=== PATIENT | female | born 1955 | race Caucasian/White ===

== ENCOUNTER 2016-12-07 12:34 | Emergency (ER) | payer OTHER ==
[2016-12-07] MEDS ORDERED: SODIUM CHLORIDE 0.9% 1,000 ML IV STA (12:51)
--- NOTE | 2016-12-07 13:25 | ED ---
Syncope HPI - General Chief Complaint: Syncope Stated Complaint: near syncope Time Seen by Provider: 12/07/16 12:34 Source: patient, RN notes reviewed Mode of arrival: EMS Limitations: no limitations - History of Present Illness Initial Comments: This is a 61-year-old female who is brought in for evaluation for what appear to be a near syncopal episode. Patient had walked 5 miles this morning he did not drink much fluid she just got part way through a [place] meal she started feeling somewhat lightheaded dizzy changes that she was given pass out. She is pale and diaphoretic per paramedics. Her blood pressure was 93 systolic currently is about 150 systolic. In route she was given IV fluids and did feel much improved after this. She denies any chest pain headache or vision or other symptoms at this time. No focal weakness. She normally does walk long distances but normally drinks more fluids. MD Complaint: felt faint, almost passed out - Related Data Home Medications Medication Instructions Recorded Confirmed Atorvastatin [Lipitor] 20 mg PO HS 01/27/16 12/07/16 Aspirin EC [Ecotrin Low Dose] 81 mg PO DAILY 12/07/16 12/07/16 Levothyroxine Sodium [Synthroid] 137 mcg PO DAILY 12/07/16 12/07/16 Losartan/Hydrochlorothiazide 1 tab PO DAILY 12/07/16 12/07/16 [Losartan-Hctz 100-12.5 mg Tab] Previous Rx's Medication Instructions Recorded Potassium Chloride ER [K-Dur 20] 20 meq PO DAILY #14 tab 12/07/16 Allergies Allergy/AdvReac Type Severity Reaction Status Date / Time codeine Allergy Rash/Hives Verified 12/07/16 13:49 Penicillins Allergy Rash/Hives Verified 12/07/16 13:49 Review of Systems ROS Statement: Those systems with pertinent positive or pertinent negative responses have been documented in the HPI. ROS Other: All systems not noted in ROS Statement are negative. Past Medical History Past Medical History: GERD/Reflux, Hyperlipidemia, Hypertension, Thyroid Disorder History of Any Multi-Drug Resistant Organisms: None Reported Past Surgical History: Cholecystectomy, Hysterectomy, Joint Replacement, Orthopedic Surgery Additional Past Surgical History / Comment(s): right hand Past Psychological History: No Psychological Hx Reported Smoking Status: Former smoker Past Alcohol Use History: None Reported Past Drug Use History: None Reported General Exam - General Exam Comments Initial Comments: This is a well-developed well-nourished awake alert oriented 3 female Limitations: no limitations General appearance: alert, in no apparent distress Head exam: Present: atraumatic, normocephalic, normal inspection Eye exam: Present: normal appearance, PERRL, EOMI. Absent: scleral icterus, conjunctival injection, periorbital swelling ENT exam: Present: mucous membranes dry Neck exam: Present: normal inspection. Absent: tenderness, meningismus, lymphadenopathy Respiratory exam: Present: normal lung sounds bilaterally. Absent: respiratory distress, wheezes, rales, rhonchi, stridor Cardiovascular Exam: Present: regular rate, normal rhythm, normal heart sounds. Absent: systolic murmur, diastolic murmur, rubs, gallop, clicks GI/Abdominal exam: Present: soft, normal bowel sounds. Absent: distended, tenderness, guarding, rebound, rigid Extremities exam: Present: normal inspection, full ROM, normal capillary refill. Absent: tenderness, pedal edema, joint swelling, calf tenderness Back exam: Present: normal inspection Neurological exam: Present: alert, oriented X3, CN II-XII intact Psychiatric exam: Present: normal affect, normal mood Skin exam: Present: warm, dry, intact, normal color. Absent: rash Course Vital Signs 12/07/16 12/07/16 13:00 14:10 Temperature 97.6 F Pulse Rate 60 67 Respiratory 16 18 Rate Blood Pressure 119/61 128/59 O2 Sat by Pulse 96 98 Oximetry EKG Findings - EKG Results: EKG: interpreted by ERMD, sinus rhythm (Sinus bradycardia with a rate of 58 ME interval 170 QRS duration 80 daily since QTC of 460/451. ST-T wave changes) Medical Decision Making - Medical Decision Making Patient initially much improved she will be discharged the presentation is consistent with an orthostatic episode she'll be placed on potassium supplementation she is encouraged to increase her oral fluid consumption. - Lab Data Result diagrams: 12/07/16 14:00 12/07/16 13:36 Lab Results 12/07/16 12/07/16 12/07/16 Range/Units 13:36 13:36 14:00 WBC 9.3 (3.8-10.6) k/uL RBC 4.28 (3.80-5.40) m/uL Hgb 12.6 (11.4-16.0) gm/dL Hct 38.5 (34.0-46.0) % MCV 90.0 (80.0-100.0) fL MCH 29.5 (25.0-35.0) pg MCHC 32.8 (31.0-37.0) g/dL RDW 13.8 (11.5-15.5) % Plt Count 187 (150-450) k/uL Neutrophils % 72 % Lymphocytes % 17 % Monocytes % 7 % Eosinophils % 1 % Basophils % 0 % Neutrophils # 6.7 (1.3-7.7) k/uL Lymphocytes # 1.6 (1.0-4.8) k/uL Monocytes # 0.7 (0-1.0) k/uL Eosinophils # 0.1 (0-0.7) k/uL Basophils # 0.0 (0-0.2) k/uL PT 10.4 (9.0-12.0) sec INR 1.0 (<1.1) APTT 22.1 (22.0-30.0) sec Sodium 142 (137-145) mmol/L Potassium 3.2 L (3.5-5.1) mmol/L Chloride 107 (98-107) mmol/L Carbon Dioxide 24 (22-30) mmol/L Anion Gap 11 mmol/L BUN 18 H (7-17) mg/dL Creatinine 0.90 (0.52-1.04) mg/dL Est GFR (MDRD) Af Amer >60 (>60 ml/min/1.73 sqM) Est GFR (MDRD) Non-Af >60 (>60 ml/min/1.73 sqM) Glucose 110 H (74-99) mg/dL Calcium 9.1 (8.4-10.2) mg/dL Magnesium 1.9 (1.6-2.3) mg/dL Total Bilirubin 0.6 (0.2-1.3) mg/dL AST 20 (14-36) U/L ALT 21 (9-52) U/L Alkaline Phosphatase 122 (38-126) U/L Total Creatine Kinase (30-135) U/L CK-MB (CK-2) (0.0-2.4) ng/mL CK-MB (CK-2) Rel Index Troponin I (0.000-0.034) ng/mL Total Protein 7.0 (6.3-8.2) g/dL Albumin 4.1 (3.5-5.0) g/dL 12/07/16 Range/Units 14:00 WBC (3.8-10.6) k/uL RBC (3.80-5.40) m/uL Hgb (11.4-16.0) gm/dL Hct (34.0-46.0) % MCV (80.0-100.0) fL MCH (25.0-35.0) pg MCHC (31.0-37.0) g/dL RDW (11.5-15.5) % Plt Count (150-450) k/uL Neutrophils % % Lymphocytes % % Monocytes % % Eosinophils % % Basophils % % Neutrophils # (1.3-7.7) k/uL Lymphocytes # (1.0-4.8) k/uL Monocytes # (0-1.0) k/uL Eosinophils # (0-0.7) k/uL Basophils # (0-0.2) k/uL PT (9.0-12.0) sec INR (<1.1) APTT (22.0-30.0) sec Sodium (137-145) mmol/L Potassium (3.5-5.1) mmol/L Chloride (98-107) mmol/L Carbon Dioxide (22-30) mmol/L Anion Gap mmol/L BUN (7-17) mg/dL Creatinine (0.52-1.04) mg/dL Est GFR (MDRD) Af Amer (>60 ml/min/1.73 sqM) Est GFR (MDRD) Non-Af (>60 ml/min/1.73 sqM) Glucose (74-99) mg/dL Calcium (8.4-10.2) mg/dL Magnesium (1.6-2.3) mg/dL Total Bilirubin (0.2-1.3) mg/dL AST (14-36) U/L ALT (9-52) U/L Alkaline Phosphatase (38-126) U/L Total Creatine Kinase 67 (30-135) U/L CK-MB (CK-2) 0.7 (0.0-2.4) ng/mL CK-MB (CK-2) Rel Index 1.0 Troponin I <0.012 (0.000-0.034) ng/mL Total Protein (6.3-8.2) g/dL Albumin (3.5-5.0) g/dL - Radiology Data Radiology results: report reviewed (I did review the imaging and reports no acute findings.), image reviewed Disposition Clinical Impression: Near syncope, Dehydration, Hypokalemia Disposition: HOME SELF-CARE Condition: Good Instructions: Hypokalemia (ED), Dehydration (ED), Near Syncope (ED) Prescriptions: Potassium Chloride ER [K-Dur 20] 20 meq PO DAILY #14 tab Referrals: Braden Gandhi DO [Primary Care Provider] - 1-2 days
--- NOTE | 2016-12-07 13:51 | XR ---
EXAMINATION TYPE: XR chest 2V DATE OF EXAM: 12/07/2016 1:46 PM HISTORY: syncope. REFERENCE: Previous study dated 01/27/2016. FINDINGS: Lung volumes are prominent. Heart size upper limits of normal. The lungs are clear. IMPRESSION: 1. COPD. 2. BORDERLINE CARDIOMEGALY.
[2016-12-07 13:57] LABS: Partial Thromboplastin Time 22.1 sec (22.0-30.0); Prothrombin Time 10.4 sec (9.0-12.0)
[2016-12-07 14:14] VITALS: BP 128/59; RESP 18
[2016-12-07 14:17] LABS: ALT 21 U/L (9-52); AST 20 U/L (14-36); Alkaline Phosphatase 122 U/L (38-126); Anion Gap 11 mmol/L; Blood Urea Nitrogen 18 mg/dL (7-17); Calcium 9.1 mg/dL (8.4-10.2); Carbon Dioxide 24 mmol/L (22-30); Chloride 107 mmol/L (98-107); Glucose 110 mg/dL (74-99); Magnesium 1.9 mg/dL (1.6-2.3); Non-African American GFR(MDRD) >60 (>60 ml/min/1.73 sqM); Potassium 3.2 mmol/L (3.5-5.1); Sodium 142 mmol/L (137-145); Total Bilirubin 0.6 mg/dL (0.2-1.3)
[2016-12-07 14:20] LABS: Basophils % (A) 0 %; CH 28.7; Eosinophils # (A) 0.1 k/uL (0-0.7); Eosinophils % (A) 1 %; HCT 38.5 % (34.0-46.0); HDW 2.59; HGB 12.6 gm/dL (11.4-16.0); Luc # (Auto) 0.21; Luc % (Auto) 2; Lymphocytes # (A) 1.6 k/uL (1.0-4.8); Lymphocytes % (A) 17 %; MCH 29.5 pg (25.0-35.0); MCHC 32.8 g/dL (31.0-37.0); Mean Platelet Volume 7.2; Monocytes # (A) 0.7 k/uL (0-1.0); Monocytes % (A) 7 %; Neutrophils # (A) 6.7 k/uL (1.3-7.7); Neutrophils % (A) 72 %; RBC 4.28 m/uL (3.80-5.40); RDW 13.8 % (11.5-15.5); WBC 9.3 k/uL (3.8-10.6); WBC (Perox) 9.82
[2016-12-07] MEDS ORDERED: POTASSIUM CHLORIDE ER 20 MEQ TAB.ER PO STA (14:35)
[2016-12-07 14:41] LABS: Creatine Kinase 67 U/L (30-135)
[2016-12-07 14:54] LABS: Creatine Kinase MB 0.7 ng/mL (0.0-2.4); Troponin I <0.012 ng/mL (0.000-0.034)
[2016-12-07 15:29] VITALS: PULSE 70; TEMP 97.5
== END 2016-12-07 15:30 | disposition home or self-care (01) ==
LOC: EC 12:34
DX: E87.6 Hypokalemia (principal); E86.0 Dehydration; I10 Essential (primary) hypertension; E78.5 Hyperlipidemia, unspecified; E07.9 Disorder of thyroid, unspecified; Z87.891 Personal history of nicotine dependence; Z79.82 Long term (current) use of aspirin; Z79.899 Other long term (current) drug therapy; Z88.0 Allergy status to penicillin; Z88.5 Allergy status to narcotic agent
CPT/HCPCS: 36415; 71020; 80053; 82550; 82553; 83735; 84484; 85025; 85610; 85730; 93005; 96360; 99285

== ENCOUNTER → 2017-02-06 | Outpatient (CLI) | payer OTHER ==
--- NOTE | 2017-02-06 18:01 | US ---
EXAMINATION TYPE: US venous doppler duplex LE DATE OF EXAM: 02/06/2017 5:46 PM COMPARISON: NONE CLINICAL HISTORY: R79.9 Abnormal finding of blood chemistry, unspecified. Bilateral edema SIDE PERFORMED: Bilateral TECHNIQUE: The lower extremity deep venous system is examined utilizing real time linear array sonog cheryl with graded compression, doppler sonography and color-flow sonography. VESSELS IMAGED: External Iliac Vein (EIV) Common Femoral Vein Deep Femoral Vein Greater Saphenous Vein * Femoral Vein Popliteal Vein Small Saphenous Vein * Proximal Calf Veins (* superficial vessels) Right Leg: Negative for DVT Left Leg: Negative for DVT Grayscale, color doppler, spectral doppler imaging performed of the deep veins of the lower extremiti es. There is normal flow, compressibility, vascular waveforms bilaterally. IMPRESSION: No ultrasound evidence for acute DVT in either lower extremity.
== END | disposition home or self-care (01) ==
LOC: RADUSMAIN 16:51
PROVIDERS: ATTEND Family Medicine
DX: R79.9 Abnormal finding of blood chemistry, unspecified (principal)
CPT/HCPCS: 93970

== ENCOUNTER 2017-11-01 13:22 | Inpatient (IN) | payer OTHER ==
[2017-11-01 14:07] LABS: Basophils % (A) 0 %; Eosinophils # (A) 0.1 k/uL (0-0.7); Eosinophils % (A) 1 %; HCT 40.2 % (34.0-46.0); HGB 13.5 gm/dL (11.4-16.0); Lymphocytes % (A) 26 %; MCH 27.8 pg (25.0-35.0); MCHC 33.6 g/dL (31.0-37.0); MCV 82.6 fL (80.0-100.0); Mean Platelet Volume 7.2; Monocytes # (A) 0.5 k/uL (0-1.0); Monocytes % (A) 7 %; Neutrophils # (A) 4.9 k/uL (1.3-7.7); Neutrophils % (A) 64 %; Platelet Count 256 k/uL (150-450); RBC 4.87 m/uL (3.80-5.40); RDW 13.2 % (11.5-15.5); WBC 7.6 k/uL (3.8-10.6)
[2017-11-01 14:14] LABS: Albumin 3.9 g/dL (3.5-5.0); Calcium 9.3 mg/dL (8.4-10.2); Magnesium 1.9 mg/dL (1.6-2.3); Potassium 3.5 mmol/L (3.5-5.1); Total Bilirubin 0.3 mg/dL (0.2-1.3); Total Protein 6.9 g/dL (6.3-8.2)
[2017-11-01 14:16] LABS: Partial Thromboplastin Time 25.1 sec (22.0-30.0); Prothrombin Time 9.9 sec (9.0-12.0)
[2017-11-01] MEDS ORDERED: ONDANSETRON 4 MG/2 ML VIAL IVP PRN (14:47)
[2017-11-01] MEDS ORDERED: NALOXONE 0.4 MG/ML 1 ML VIAL IV PRN (14:47)
--- NOTE | 2017-11-01 14:47 | ED ---
SOB HPI - General Chief Complaint: Shortness of Breath Stated Complaint: Diff Breathing Time Seen by Provider: 11/01/17 13:33 Source: patient Mode of arrival: ambulatory Limitations: no limitations - History of Present Illness Initial Comments: Patient complains of shortness of breath and left-sided chest pain. Apparently she has been treated a couple times for upper respiratory infections over the last few months. Recently developed sharp left-sided chest pain. Hurts when she takes a deep breath. Nothing else makes it better. She has taken no medications. She has no productivity to her cough. She has no nausea or vomiting. She has no diaphoresis. She denies any weakness or trouble walking. She is tolerating orotate. She has no belly pain. - Related Data Home Medications Medication Instructions Recorded Confirmed Atorvastatin [Lipitor] 20 mg PO HS 01/27/16 12/07/16 Aspirin EC [Ecotrin Low Dose] 81 mg PO DAILY 12/07/16 12/07/16 Levothyroxine Sodium [Synthroid] 137 mcg PO DAILY 12/07/16 12/07/16 Losartan/Hydrochlorothiazide 1 tab PO DAILY 12/07/16 12/07/16 [Losartan-Hctz 100-12.5 mg Tab] Previous Rx's Medication Instructions Recorded Potassium Chloride ER [K-Dur 20] 20 meq PO DAILY #14 tab 12/07/16 Allergies Allergy/AdvReac Type Severity Reaction Status Date / Time codeine Allergy Rash/Hives Verified 11/01/17 13:31 Penicillins Allergy Rash/Hives Verified 11/01/17 13:31 Review of Systems ROS Statement: Those systems with pertinent positive or pertinent negative responses have been documented in the HPI. ROS Other: All systems not noted in ROS Statement are negative. Past Medical History Past Medical History: GERD/Reflux, Hyperlipidemia, Hypertension, Thyroid Disorder History of Any Multi-Drug Resistant Organisms: None Reported Past Surgical History: Cholecystectomy, Hysterectomy, Joint Replacement, Orthopedic Surgery Additional Past Surgical History / Comment(s): right hand Past Psychological History: No Psychological Hx Reported Smoking Status: Former smoker Past Alcohol Use History: None Reported Past Drug Use History: None Reported General Exam Limitations: no limitations General appearance: alert, in no apparent distress Head exam: Present: atraumatic, normocephalic, normal inspection Eye exam: Present: normal appearance, PERRL, EOMI. Absent: scleral icterus, conjunctival injection, periorbital swelling ENT exam: Present: normal exam, mucous membranes moist Neck exam: Present: normal inspection. Absent: tenderness, meningismus, lymphadenopathy Respiratory exam: Present: normal lung sounds bilaterally. Absent: respiratory distress, wheezes, rales, rhonchi, stridor Cardiovascular Exam: Present: regular rate, normal rhythm, normal heart sounds. Absent: systolic murmur, diastolic murmur, rubs, gallop, clicks GI/Abdominal exam: Present: soft, normal bowel sounds. Absent: distended, tenderness, guarding, rebound, rigid Extremities exam: Present: normal inspection, full ROM, normal capillary refill. Absent: tenderness, pedal edema, joint swelling, calf tenderness Back exam: Present: normal inspection Neurological exam: Present: alert, oriented X3, CN II-XII intact Psychiatric exam: Present: normal affect, normal mood Skin exam: Present: warm, dry, intact, normal color. Absent: rash Course Vital Signs 11/01/17 11/01/17 11/01/17 13:28 13:57 14:06 Temperature 98.3 F Pulse Rate 81 Respiratory 22 20 Rate Blood Pressure 199/83 O2 Sat by Pulse 94 L 97 Oximetry Medical Decision Making - Medical Decision Making Patient presents with sharp left-sided chest pain. She has a tiny pneumothorax. She is placed on 100% oxygen. I consult the pulmonology. She will be admitted to the hospital. - Lab Data Result diagrams: 11/01/17 13:52 11/01/17 13:52 Lab Results 11/01/17 11/01/17 11/01/17 Range/Units 13:52 13:52 13:52 WBC 7.6 (3.8-10.6) k/uL RBC 4.87 (3.80-5.40) m/uL Hgb 13.5 (11.4-16.0) gm/dL Hct 40.2 (34.0-46.0) % MCV 82.6 (80.0-100.0) fL MCH 27.8 (25.0-35.0) pg MCHC 33.6 (31.0-37.0) g/dL RDW 13.2 (11.5-15.5) % Plt Count 256 (150-450) k/uL Neutrophils % 64 % Lymphocytes % 26 % Monocytes % 7 % Eosinophils % 1 % Basophils % 0 % Neutrophils # 4.9 (1.3-7.7) k/uL Lymphocytes # 2.0 (1.0-4.8) k/uL Monocytes # 0.5 (0-1.0) k/uL Eosinophils # 0.1 (0-0.7) k/uL Basophils # 0.0 (0-0.2) k/uL PT (9.0-12.0) sec INR (<1.2) APTT (22.0-30.0) sec Sodium 147 H (137-145) mmol/L Potassium 3.5 (3.5-5.1) mmol/L Chloride 106 (98-107) mmol/L Carbon Dioxide 29 (22-30) mmol/L Anion Gap 12 mmol/L BUN 14 (7-17) mg/dL Creatinine 0.85 (0.52-1.04) mg/dL Est GFR (CKD-EPI)AfAm 85 (>60 ml/min/1.73 sqM) Est GFR (CKD-EPI)NonAf 73 (>60 ml/min/1.73 sqM) Glucose 106 H (74-99) mg/dL Calcium 9.3 (8.4-10.2) mg/dL Magnesium 1.9 (1.6-2.3) mg/dL Total Bilirubin 0.3 (0.2-1.3) mg/dL AST 19 (14-36) U/L ALT 22 (9-52) U/L Alkaline Phosphatase 155 H (38-126) U/L Troponin I (0.000-0.034) ng/mL NT-Pro-B Natriuret Pep 550 pg/mL Total Protein 6.9 (6.3-8.2) g/dL Albumin 3.9 (3.5-5.0) g/dL 11/01/17 11/01/17 Range/Units 13:52 13:52 WBC (3.8-10.6) k/uL RBC (3.80-5.40) m/uL Hgb (11.4-16.0) gm/dL Hct (34.0-46.0) % MCV (80.0-100.0) fL MCH (25.0-35.0) pg MCHC (31.0-37.0) g/dL RDW (11.5-15.5) % Plt Count (150-450) k/uL Neutrophils % % Lymphocytes % % Monocytes % % Eosinophils % % Basophils % % Neutrophils # (1.3-7.7) k/uL Lymphocytes # (1.0-4.8) k/uL Monocytes # (0-1.0) k/uL Eosinophils # (0-0.7) k/uL Basophils # (0-0.2) k/uL PT 9.9 (9.0-12.0) sec INR 1.0 (<1.2) APTT 25.1 (22.0-30.0) sec Sodium (137-145) mmol/L Potassium (3.5-5.1) mmol/L Chloride (98-107) mmol/L Carbon Dioxide (22-30) mmol/L Anion Gap mmol/L BUN (7-17) mg/dL Creatinine (0.52-1.04) mg/dL Est GFR (CKD-EPI)AfAm (>60 ml/min/1.73 sqM) Est GFR (CKD-EPI)NonAf (>60 ml/min/1.73 sqM) Glucose (74-99) mg/dL Calcium (8.4-10.2) mg/dL Magnesium (1.6-2.3) mg/dL Total Bilirubin (0.2-1.3) mg/dL AST (14-36) U/L ALT (9-52) U/L Alkaline Phosphatase (38-126) U/L Troponin I <0.012 (0.000-0.034) ng/mL NT-Pro-B Natriuret Pep pg/mL Total Protein (6.3-8.2) g/dL Albumin (3.5-5.0) g/dL 11/01/17 14:46 Twelve-lead EKG shows ventricular rate 73 bpm, normal ID interval and QRS complexes, no ST elevation or depression, interpreted by me as normal sinus rhythm. Disposition Clinical Impression: Pneumothorax Disposition: ADMITTED IP TO THIS HOSP Condition: Fair Is patient prescribed a controlled substance at discharge?: No Referrals: Braden Gandhi DO [Primary Care Provider] - 1-2 days Time of Disposition: 14:47
[2017-11-01] MEDS ORDERED: cloNIDine HCL 0.2 MG TAB PO STA (15:35)
[2017-11-01] MEDS ORDERED: RX INFO: IV CONTRAST WAS GIVEN 1 EACH MISC MISCELLANE PRN (17:51)
--- NOTE | 2017-11-01 19:21 | P.CNPUL ---
History of Present Illness Consult date: 11/01/17 Reason for consult: dyspnea, pneumothorax History of present illness: A 62-year-old female patient, obese with a BMI of 40.2, well-developed an upper respiratory checked infection approximately 2 weeks ago and the patient has been seen in urgent care for antibiotics. She continued to have vigorous cough and she progressively became more short of breath and the patient presented to her primary care physician Dr. Gandhi ordered an outpatient chest x-ray. The chest x-ray was done and the patient was found to have a pneumothorax. The patient got called back from the hospital to come in to the emergency department and based on the findings the patient was admitted to the observation unit. Currently the patient is on 100% nonrebreather facemask and hemodynamically stable. She is short of breath with minimal amount of activity. She is quite comfortable at rest. No signs of tension. No pleurisy. No chest pain. No hypotension. No rib fracture. No falls. No previous history of pneumothoraces in the past. Based on the radiology description the patient is a 20% pneumothorax on the left yet on examination she has significantly diminished breath sounds on the left compared to the right. A stat CAT scan of the chest was ordered. Review of Systems 12 point review of system was done and the positive findings are almost above in history of present illness All systems: negative Eyes: denies blurred vision, denies bulging eye, denies decreased vision Ears: deny: ear discharge, earache, tinnitus Ears, nose, mouth and throat: Denies headache, Denies sore throat Cardiovascular: Reports dyspnea on exertion Respiratory: Reports cough, Reports dyspnea Gastrointestinal: Denies abdominal pain, Denies diarrhea, Denies nausea, Denies vomiting Genitourinary: Denies dysuria, Denies hematuria Musculoskeletal: Denies myalgias Musculoskeletal: absent: ankle pain, ankle stiffness, ankle swelling Integumentary: Denies pruritus, Denies rash Neurological: Denies numbness, Denies weakness Psychiatric: Denies anxiety, Denies depression Endocrine: Denies fatigue, Denies weight change Past Medical History Past Medical History: Cancer, GERD/Reflux, Hyperlipidemia, Hypertension, Pneumonia, Thyroid Disorder Additional Past Medical History / Comment(s): Obesity, hypertension, hyperlipidemia, shingles approximately 9 years ago, acid reflux, cervical cancer History of Any Multi-Drug Resistant Organisms: None Reported Past Surgical History: Appendectomy, Cholecystectomy, Hysterectomy, Joint Replacement, Orthopedic Surgery, Tonsillectomy, Tubal Ligation Additional Past Surgical History / Comment(s): vicenta carpal tunnel , rt breast bx- neg, lt rotaotr cuff Past Anesthesia/Blood Transfusion Reactions: No Reported Reaction Additional Past Anesthesia/Blood Transfusion Reaction / Comment(s): never recieved blood Smoking Status: Former smoker - Past Family History Mother Family Medical History: AFIB, COPD, Hyperlipidemia, Hypertension, Osteoarthritis (OA), Thyroid Disorder Additional Family Medical History / Comment(s): pacemaker Father Family Medical History: Cancer, Hypertension, Rheumatoid Arthritis (RA) Medications and Allergies Home Medications Medication Instructions Recorded Confirmed Type Atorvastatin [Lipitor] 20 mg PO HS 01/27/16 11/01/17 History Aspirin EC [Ecotrin Low Dose] 81 mg PO DAILY 12/07/16 11/01/17 History Levothyroxine Sodium [Synthroid] 137 mcg PO DAILY 12/07/16 11/01/17 History Calcium Polycarbophil [Fibercon] 625 mg PO DAILY 11/01/17 11/01/17 History Losartan Potassium 100 mg PO QAM 11/01/17 11/01/17 History Allergies Allergy/AdvReac Type Severity Reaction Status Date / Time codeine Allergy Rash/Hives Verified 11/01/17 15:09 Penicillins Allergy Rash/Hives Verified 11/01/17 15:09 tomato Allergy Dyspnea Verified 11/01/17 17:30 chocolate flavor AdvReac Unknown Verified 11/01/17 17:30 Physical Exam Vitals: Vital Signs Temp Pulse Pulse Resp BP BP Pulse Ox 11/01/17 16:40 97.7 F 78 18 190/89 97 11/01/17 16:23 97.0 F L 81 20 192/95 97 11/01/17 15:30 85 18 189/89 98 11/01/17 15:19 69 20 195/93 100 11/01/17 14:06 97 11/01/17 13:57 20 11/01/17 13:28 98.3 F 81 22 199/83 94 L Intake and Output 11/01/17 11/01/17 11/01/17 06:59 14:59 22:59 Other: Voiding Method Toilet Weight 113.398 kg 113.1 kg Morbidly obese, comfortable a mild degree of respiratory distress. Head exam was generally normal. There was no scleral icterus or corneal arcus. Mucous membranes were moist.Neck was supple and without jugular venous distension, thyromegaly, or carotid bruits. Carotids were easily palpable bilaterally. There was no adenopathy. Lung sounds are markedly diminished on the left compared to right. Right lung are clear.Cardiac exam revealed the PMI to be normally situated and sized. The rhythm was regular and no extrasystoles were noted during several minutes of auscultation. The first and second heart sounds were normal and physiologic splitting of the second heart sound was noted. There were no murmurs, rubs, clicks, or gallops.Abdominal exam revealed normal bowel sounds. The abdomen was soft, non-tender, and without masses, organomegaly , or appreciable enlargement of the abdominal aorta.Examination of the extremities revealed easily palpable radial, femoral and pedal pulses. There was no cyanosis, clubbing or edema. Examination of the skin revealed no evidence of significant rashes, suspicious appearing nevi or other concerning lesions. neurologically the patient is awake and alert and there is no focal neurological deficits. Results - Laboratory Findings CBC and BMP: 11/01/17 13:52 11/01/17 13:52 PT/INR, D-dimer PT 9.9 sec (9.0-12.0) 11/01/17 13:52 INR 1.0 (<1.2) 11/01/17 13:52 Abnormal lab findings: Abnormal Labs 11/01/17 13:52 Sodium 147 H Glucose 106 H Alkaline Phosphatase 155 H - Diagnostic Findings Chest x-ray: image reviewed Assessment and Plan Plan: Assessment 1 acute left-sided pneumothorax, probably loculated involving the left lower lobe 2 acute hypoxic respiratory failure secondary to above 3 acute shortness of breath secondary to above 4 recent symptoms of bronchitis with vigorous cough underlying this patient's pneumothorax 5 obesity with a BMI of 40.2 6 remote history of cervical cancer 7 hyperlipidemia 8 hypertension 9 hypothyroidism Plan Stat CAT scan of the chest. We'll decide on chest tube versus Thoravent based on the CAT scan findings. Keep the patient on 100 percent facemasks. Moreover the patient to a monitored bed on the medical surgical floor or selective. Provide the patient incentive spirometer. We'll continue to follow. Further recommended is set to follow based on the CAT scan findings.
--- NOTE | 2017-11-01 19:53 | CT ---
EXAMINATION TYPE: CT chest w con DATE OF EXAM: 11/01/2017 COMPARISON: Chest x-ray earlier today and older x-rays. HISTORY: Difficulty breathing. Left-sided pneumothorax. CT DLP: 522.4 mGycm. Automated Exposure Control for Dose Reduction was Utilized. TECHNIQUE: CT scan of the thorax is performed following with IV Contrast, patient injected with 100 mL of Isovue 300. FINDINGS: LUNGS: There is left-sided pneumothorax confirmed as suspected on recent x-ray. Degree of pneumothora x is larger than suspected on x-ray estimated 50-60%. There is some subtle mediastinal shift to the right felt present. There is curvilinear density centrally and inferiorly felt to reflect compressive atelectasis. Right lung is clear. Mild underlying emphysematous changes in present most prominent in the lung apices. MEDIASTINUM: There are no greater than 1 cm hilar or mediastinal lymph nodes. No cardiomegaly or pe ricardial effusion is seen. OTHER: There is moderate multilevel spurring in the thoracic spine. IMPRESSION: 1. There is moderate to large size left pneumothorax estimated 50-60% with some mediastinal shift. Critical results were communicated to ICU nurse via telephone at time of dictation.
[2017-11-01] MEDS ORDERED: HYDROcodone/APAP 5-325MG 1 EACH TAB PO PRN (20:19)
--- NOTE | 2017-11-01 20:19 | P.PCN ---
Date of Procedure: 11/01/17 Preoperative Diagnosis: Left-sided pneumothorax Postoperative Diagnosis: Left-sided pneumothorax Procedure(s) Performed: THORAVENT INSERTION Anesthesia: local Surgeon: Adalid Mcnulty Sourcing Intern #1: Nirali Her Estimated Blood Loss (ml): 0 Pathology: other Condition: stable Disposition: ICU Indications for Procedure: Acute hypoxemic respiratory failure, 100% oxygen nonrebreather facemask Operative Findings: The patient was placed in a supine body position with the head of the bed elevated at 20. The left anterior chest area was cleaned using chlorhexidine. The skin at the level of the second intercostal space anteriorly was infiltrated with 1% lidocaine. Following that, a Thoravent cath was successfully inserted into the left hemithorax and the catheter was secured in place. The catheter was also attached to a Pneumovax. No bedside complications or bleeding. Postoperative chest x-ray shows adequate positioning of the tube with complete expansion of the left lung and the patient 's oxidation improved considerably and the patient is currently being weaned down to a nasal cannula. No bedside complications. No bleeding.
[2017-11-01] MEDS ORDERED: cloNIDine HCL 0.1 MG TAB PO STA (20:21)
--- NOTE | 2017-11-01 20:34 | XR ---
EXAMINATION TYPE: XR chest 1V portable DATE OF EXAM: 11/01/2017 CLINICAL HISTORY: Left-sided chest tube placement progress study TECHNIQUE: Single AP portable upright view of the chest is obtained. COMPARISON: Chest x-ray and CT chest from earlier today FINDINGS: There is interval placement of left-sided chest tube with reexpansion of left lung, no siz able pneumothorax is present. There is persistent left hilar rectangular consolidation noted. Right l niles remains clear. Cardiac silhouette size is upper limits of normal. Osseous structures are intact. IMPRESSION: New left-sided anterior chest tube with reexpansion of left lung. Persistent left midlung rectangular shaped consolidation. Progress study advised.
[2017-11-01] MEDS: HYDROcodone/APAP 5-325MG 1 EACH TAB PO PRN (21:16)
[2017-11-01] MEDS: FAMOTIDINE 20 MG TAB PO SCH (23:04)
[2017-11-01] MEDS: ATORVASTATIN 20 MG TAB PO SCH (23:04)
[2017-11-02 05:19] LABS: Basophils % (A) 0 %; Eosinophils # (A) 0.1 k/uL (0-0.7); Eosinophils % (A) 1 %; HCT 37.3 % (34.0-46.0); HGB 12.4 gm/dL (11.4-16.0); Lymphocytes % (A) 29 %; MCH 27.8 pg (25.0-35.0); MCHC 33.1 g/dL (31.0-37.0); Mean Platelet Volume 7.2; Monocytes # (A) 0.4 k/uL (0-1.0); Monocytes % (A) 6 %; Neutrophils # (A) 4.1 k/uL (1.3-7.7); Neutrophils % (A) 61 %; Platelet Count 219 k/uL (150-450); RBC 4.45 m/uL (3.80-5.40); RDW 13.4 % (11.5-15.5); WBC 6.7 k/uL (3.8-10.6)
[2017-11-02 05:37] LABS: Anion Gap 11 mmol/L; Blood Urea Nitrogen 19 mg/dL (7-17); Calcium 9.2 mg/dL (8.4-10.2); Carbon Dioxide 28 mmol/L (22-30); Chloride 104 mmol/L (98-107); Glucose 93 mg/dL (74-99); Phosphorus 4.3 mg/dL (2.5-4.5); Potassium 4.2 mmol/L (3.5-5.1); Sodium 143 mmol/L (137-145)
[2017-11-02] MEDS: LEVOTHYROXINE 137 MCG TAB PO SCH (07:03)
--- NOTE | 2017-11-02 08:38 | XR ---
EXAMINATION TYPE: XR chest 1V portable DATE OF EXAM: 11/02/2017 COMPARISON: 11/01/2017 INDICATION: Left-sided pneumothorax, status post thoracentesis and TECHNIQUE: Single frontal view of the chest is obtained. FINDINGS: The heart size is normal. The pulmonary vasculature is normal. There is an infiltrate within the lingula. On this upright view no suspicious pneumothorax is evident. Catheter is present on the left. There is increased density overlying the insertion site. Catheter is been adjusted in position from prior dora dy. IMPRESSION: 1. Pneumothorax is not evident on the current examination. Close monitoring is recommended. 2. Infiltrate at the left base lingula appears improved. 3. Density over the insertion site of the catheter can be related to bandaging. Catheter appears to b e along the left upper lung field margin and has been adjusted from prior study.
[2017-11-02] MEDS: FAMOTIDINE 20 MG TAB PO SCH ×2 (08:42→20:13)
[2017-11-02] MEDS: LOSARTAN 50 MG TAB PO SCH (08:42)
[2017-11-02] MEDS: HYDROCHLOROTHIAZIDE 12.5 MG CAP PO SCH (08:42)
--- NOTE | 2017-11-02 08:54 | XR ---
EXAMINATION TYPE: XR chest 1V portable DATE OF EXAM: 11/02/2017 COMPARISON: 11/02/2017 earlier exam INDICATION: Pneumothorax TECHNIQUE: Single frontal view of the chest is obtained. FINDINGS: The heart size is normal. The pulmonary vasculature is normal. Mild bibasilar infiltrates are present, greater within the lingula. No pneumothorax is evident. There is been adjustment of the catheter on the left. IMPRESSION: 1. No pneumothorax. 2. Adjustment of the left chest tube catheter. 3. Bibasilar infiltrates are increasing at the right base and similar at the left lingula.
[2017-11-02] MEDS ORDERED: LOSARTAN 50 MG TAB PO SCH (09:00)
--- NOTE | 2017-11-02 09:00 | P.PN ---
Subjective Progress Note Date: 11/02/17 A 62-year-old female patient, obese with a BMI of 40.2, well-developed an upper respiratory checked infection approximately 2 weeks ago and the patient has been seen in urgent care for antibiotics. She continued to have vigorous cough and she progressively became more short of breath and the patient presented to her primary care physician Dr. Gandhi ordered an outpatient chest x-ray. The chest x-ray was done and the patient was found to have a pneumothorax. The patient got called back from the hospital to come in to the emergency department and based on the findings the patient was admitted to the observation unit. Currently the patient is on 100% nonrebreather facemask and hemodynamically stable. She is short of breath with minimal amount of activity. She is quite comfortable at rest. No signs of tension. No pleurisy. No chest pain. No hypotension. No rib fracture. No falls. No previous history of pneumothoraces in the past. Based on the radiology description the patient is a 20% pneumothorax on the left yet on examination she has significantly diminished breath sounds on the left compared to the right. A stat CAT scan of the chest was ordered. On 11/02/2017 the patient is being seen for a follow-up. Note that the CAT scan of the chest was done yesterday and the patient had a large left-sided pneumothorax estimated to be around 6070%. She had also some mediastinal shift. She was moved to the intensive care unit. I performed a Thoavent insertion and the procedure was done successfully with complete expansion of the left lung. Today's chest x-ray shows no evidence of pneumothorax and the patient has no air leak. Meanwhile the FiO2 has been weaned down to room air and the patient was taken off the on the percent on a beta facemask. She still has some atelectatic changes and left lung base. He is using incentive spirometer. No other complaints for now. She is calm and comfortable. No other significant issues overnight. She remains hemodynamically stable. No cough and episodes. Objective - Vital Signs Vital signs: Vital Signs Temp 97.9 F 11/02/17 04:00 Pulse 57 L 11/02/17 07:00 Resp 12 11/02/17 07:00 BP 92/53 11/02/17 07:00 Pulse Ox 97 11/02/17 07:00 Intake & Output 11/01/17 11/02/17 11/02/17 18:59 06:59 18:59 Intake Total 180 30 Output Total 0 Balance 180 30 Weight 113.1 kg 113.4 kg Intake: Oral 180 30 Output: Chest Tube Drainage 0 Thora-Vent Left Upper Mid 0 -Clavicular Chest Urine 0 Other: Voiding Method Toilet Toilet - Exam Morbidly obese, comfortable a mild degree of respiratory distress. Head exam was generally normal. There was no scleral icterus or corneal arcus. Mucous membranes were moist.Neck was supple and without jugular venous distension, thyromegaly, or carotid bruits.thoravent over the anterior chest. Right lung are clear.Cardiac exam revealed the PMI to be normally situated and sized. The rhythm was regular and no extrasystoles were noted during several minutes of auscultation. The first and second heart sounds were normal and physiologic splitting of the second heart sound was noted. There were no murmurs, rubs, clicks, or gallops.Abdominal exam revealed normal bowel sounds. The abdomen was soft, non-tender, and without masses, organomegaly, or appreciable enlargement of the abdominal aorta.Examination of the extremities revealed easily palpable radial, femoral and pedal pulses. There was no cyanosis, clubbing or edema. Examination of the skin revealed no evidence of significant rashes, suspicious appearing nevi or other concerning lesions. neurologically the patient is awake and alert and there is no focal neurological deficits. - Labs CBC & Chem 7: 11/02/17 05:07 11/02/17 05:07 Labs: Abnormal Lab Results - Last 24 Hours (Table) 11/01/17 11/02/17 Range/Units 13:52 05:07 Sodium 147 H (137-145) mmol/L BUN 19 H (7-17) mg/dL Glucose 106 H (74-99) mg/dL Alkaline Phosphatase 155 H (38-126) U/L Assessment and Plan Plan: Assessment 1 acute left-sided pneumothorax, large, associated with severe hypoxemia and some mediastinal shift. Patient is status post Thoravent insertion with reexpansion of the left lung 2 acute hypoxic respiratory failure secondary to above, improved and the patient is currently on room air. 3 acute shortness of breath secondary to above 4 recent symptoms of bronchitis with vigorous cough underlying this patient's pneumothorax 5 obesity with a BMI of 40.2 6 remote history of cervical cancer 7 hyperlipidemia 8 hypertension 9 hypothyroidism Plan Daily chest x-rays. Incentive spirometer. Motor the patient to a medical floor with telemetry. We'll continue to follow. Marked improvement clinically.
[2017-11-02] MEDS: CALCIUM POLYCARBOPHIL 625 MG TAB PO SCH (14:01)
[2017-11-02] MEDS: HYDROcodone/APAP 5-325MG 1 EACH TAB PO PRN ×2 (14:01→20:11)
--- NOTE | 2017-11-02 17:40 | P.HPIM ---
History of Present Illness H&P Date: 11/02/17 Chief Complaint: shortness of breath, new pneumothorax This a pleasant 62-year-old lady patient of Dr. Gandhi. She has underlying history off hypertension, hyperlipidemia, hypothyroidism, morbid obesity, known history of diabetes CVA or DVT, admitted emergency room secondary to two-week history off upper respiratory, presenting with shortness of breath, and cough. Patient was seen and urgent care, and was prescribed antibiotics, after patient did not get any better, she had increasing shortness of breath and wheeze, she saw Dr. Hernandez urgently with a chest x-ray done, Dr. Gandhi has seen the chest x-ray report, and was advised to come into the emergency room secondary to the pneumothorax this will be her first episode, based on the x-ray 20% on the left In the emergency room, patient was even ox therafter thoravent was placed evening off 11/01/2017, and was stabilized in ICU upon the request of Dr. Mcnulty Review of Systems Constitutional: Reports as per HPI, Denies anorexia, Denies chills, Denies chronic headaches, Denies chronic pain, Denies daytime sleepiness, Denies fatigue, Denies fever, Denies lethargy, Denies malaise, Denies night sweats, Denies poor appetite, Denies sweats, Denies weakness, Denies weight gain, Denies weight loss Ears, nose, mouth and throat: Reports as per HPI, Denies ant. neck pain, Denies bleeding gums, Denies dental pain, Denies dysphagia, Denies epistaxis, Denies headache, Denies hoarseness, Denies mouth pain, Denies nasal congestion, Denies nasal discharge, Denies neck fullness/pressure, Denies neck lump, Denies nose pain, Denies odynophagia, Denies post-nasal drip, Denies sinus pain, Denies sinus pressure, Denies swelling in mouth, Denies swelling in throat, Denies sore throat, Denies vertigo, Denies voice changes Cardiovascular: Reports as per HPI, Denies chest pain, Denies claudication, Denies decreased exercise tolerance, Denies dyspnea on exertion, Denies edema, Denies high blood pressure, Denies irregular heart beat, Denies leg edema, Denies lightheadedness, Denies orthopnea, Denies palpitations, Denies paroxysmal nocturnal dyspnea, Denies phlebitis, Denies rapid heart beat, Denies shortness of breath, Denies syncope Respiratory: Reports as per HPI, Reports cough, Reports dyspnea, Reports wheezing, Denies congestion, Denies cough with sputum, Denies excessive sputum, Denies hemoptysis, Denies home oxygen, Denies pain, Denies pain on inspiration, Denies pleurisy, Denies respiratory infections, Denies sleep apnea, Denies snoring Gastrointestinal: Reports as per HPI, Denies abdominal pain, Denies belching, Denies bloating, Denies BRBPR, Denies change in bowel habits, Denies coffee ground emesis, Denies constipation, Denies diarrhea, Denies dyspepsia, Denies early satiety, Denies excessive gas, Denies heartburn, Denies hematemesis, Denies hematochezia, Denies indigestion, Denies jaundice, Denies lactose intolerance, Denies loss of appetite, Denies melena, Denies nausea, Denies vomiting Genitourinary: Reports as per HPI Menstruation: Reports as per HPI Musculoskeletal: Reports as per HPI, Denies arm numbness/tingling, Denies atrophy, Denies fractures, Denies frequent falls, Denies gait dysfunction, Denies hot joints, Denies leg numbness/tingling, Denies limitation of motion, Denies loss of height, Denies low back pain, Denies morning stiffness, Denies muscle cramps, Denies muscle weakness, Denies myalgias, Denies neck pain, Denies neck stiffness, Denies prior amputations, Denies redness of joints, Denies shooting arm pain, Denies shooting leg pain Integumentary: Reports as per HPI, Denies acne, Denies boils, Denies brittle nails, Denies change in hair/nails, Denies color changes, Denies darkening of skin, Denies depigmentation, Denies dryness, Denies foot/leg ulcers, Denies growths, Denies hirsutism, Denies lesions, Denies onychomycosis, Denies pruritus , Denies rash, Denies sores, Denies striae, Denies unusual bruising, Denies wounds Neurological: Reports as per HPI, Denies aphasia, Denies ataxia, Denies balance difficulties, Denies burning pain, Denies change in mentation, Denies change in smell/taste, Denies change in speech, Denies confusion, Denies convulsions, Denies double vision, Denies gait dysfunction, Denies head injury, Denies headaches, Denies hearing difficulties, Denies lack of coordination, Denies loss of vision, Denies memory loss, Denies migraines, Denies motor disturbance, Denies numbness, Denies paralysis, Denies paresthesias, Denies seizures, Denies sensory deficit, Denies spasticity, Denies syncope, Denies tic, Denies tingling , Denies transient paralysis, Denies tremors, Denies vertigo, Denies weakness, Denies visual changes Psychiatric: Reports as per HPI, Denies anhedonia, Denies anxiety, Denies anxiety attacks, Denies change in appetite, Denies change in libido, Denies change in sleep habits, Denies confusion, Denies depression, Denies difficulty concentrating, Denies disorientation, Denies hallucinations, Denies hopelessness , Denies hypersomnia, Denies insomnia, Denies irritability, Denies memory loss, Denies mood swings, Denies paranoia, Denies sadness/tearfulness, Denies sleep disturbances, Denies suicidal ideation Endocrine: Reports as per HPI, Denies cold intolerance, Denies deepening of the voice, Denies excessive sweating, Denies excessive thirst, Denies fatigue, Denies flushing, Denies heat intolerance, Denies high blood sugars, Denies increase in ring/shoe/hat size, Denies low blood sugars, Denies nocturia, Denies palpitations, Denies polydipsia, Denies polyphagia, Denies polyuria, Denies proptosis, Denies recent glucocorticoid use, Denies thyroid mass, Denies weight change Hematologic/Lymphatic: Reports as per HPI Allergic/Immunologic: Reports as per HPI Past Medical History Past Medical History: Cancer, GERD/Reflux, Hyperlipidemia, Hypertension, Pneumonia, Thyroid Disorder Additional Past Medical History / Comment(s): Obesity, hypertension, hyperlipidemia, shingles approximately 9 years ago, acid reflux, cervical cancer History of Any Multi-Drug Resistant Organisms: None Reported Past Surgical History: Appendectomy, Cholecystectomy, Hysterectomy, Joint Replacement, Orthopedic Surgery, Tonsillectomy, Tubal Ligation Additional Past Surgical History / Comment(s): vicenta carpal tunnel , rt breast bx- neg, lt rotaotr cuff Past Anesthesia/Blood Transfusion Reactions: No Reported Reaction Additional Past Anesthesia/Blood Transfusion Reaction / Comment(s): never recieved blood Smoking Status: Former smoker - Past Family History Mother Family Medical History: AFIB, COPD, Hyperlipidemia, Hypertension, Osteoarthritis (OA), Thyroid Disorder Additional Family Medical History / Comment(s): pacemaker Father Family Medical History: Cancer, Hypertension, Rheumatoid Arthritis (RA) Additional Family Medical History / Comment(s): 4 sisters 1 with congenital Kidney disease, hypertension, 1 brother healthy, 0 daughters and 2 sons healthy Medications and Allergies Home Medications Medication Instructions Recorded Confirmed Type Atorvastatin [Lipitor] 20 mg PO HS 01/27/16 11/01/17 History Aspirin EC [Ecotrin Low Dose] 81 mg PO DAILY 12/07/16 11/01/17 History Levothyroxine Sodium [Synthroid] 137 mcg PO DAILY 12/07/16 11/01/17 History Calcium Polycarbophil [Fibercon] 625 mg PO DAILY 11/01/17 11/01/17 History Losartan Potassium 100 mg PO QAM 11/01/17 11/01/17 History Allergies Allergy/AdvReac Type Severity Reaction Status Date / Time codeine Allergy Rash/Hives Verified 11/01/17 15:09 Penicillins Allergy Rash/Hives Verified 11/01/17 15:09 tomato Allergy Dyspnea Verified 11/01/17 17:30 chocolate flavor AdvReac Unknown Verified 11/01/17 17:30 Physical Exam Vitals: Vital Signs Temp Pulse Pulse Pulse Resp BP BP 11/02/17 09:00 97.7 F 68 22 156/83 11/02/17 08:00 77 21 115/66 11/02/17 07:00 57 L 12 92/53 11/02/17 06:00 49 L 13 105/59 11/02/17 05:00 51 L 14 93/44 11/02/17 04:00 97.9 F 53 L 68 16 95/53 11/02/17 03:00 52 L 14 100/53 11/02/17 02:00 52 L 15 94/54 11/02/17 01:00 56 L 15 108/58 11/02/17 00:00 97.6 F 59 L 68 14 84/50 11/01/17 23:00 61 13 108/61 11/01/17 22:00 60 15 155/80 11/01/17 21:00 97.8 F 66 14 193/82 11/01/17 20:45 68 20 192/102 11/01/17 20:30 70 22 185/92 11/01/17 20:00 68 20 190/88 11/01/17 19:45 72 22 185/86 11/01/17 16:40 97.7 F 78 18 190/89 11/01/17 16:23 97.0 F L 81 20 192/95 11/01/17 15:30 85 18 189/89 11/01/17 15:19 69 20 195/93 11/01/17 14:06 Pulse Ox 11/02/17 09:00 92 L 11/02/17 08:00 94 L 11/02/17 07:00 97 11/02/17 06:00 96 11/02/17 05:00 96 11/02/17 04:00 97 11/02/17 03:00 97 11/02/17 02:00 97 11/02/17 01:00 96 11/02/17 00:00 96 11/01/17 23:00 95 11/01/17 22:00 97 11/01/17 21:00 99 11/01/17 20:45 99 11/01/17 20:30 99 11/01/17 20:00 100 11/01/17 19:45 100 11/01/17 16:40 97 11/01/17 16:23 97 11/01/17 15:30 98 11/01/17 15:19 100 11/01/17 14:06 97 Intake and Output 11/01/17 11/02/17 11/02/17 22:59 06:59 14:59 Intake Total 30 150 60 Output Total 0 0 0 Balance 30 150 60 Intake: Oral 30 150 60 Output: Chest Tube Drainage 0 0 Thora-Vent Left Upper Mid 0 0 -Clavicular Chest Urine 0 0 0 Other: Voiding Method Toilet Toilet # Voids 1 Weight 113.1 kg 113.4 kg - Constitutional General appearance: cooperative, no acute distress, obese - EENT Eyes: anicteric sclerae, EOMI, PERRLA ENT: NA/AT, normal oropharynx - Neck Neck: normal ROM - Respiratory Respiratory: bilateral: CTA, diminished, negative: dullness, rales, rhonchi, wheezing, prolonged expiration, prolonged inspiration - Cardiovascular Rhythm: regular Heart sounds: normal: S1, S2 Abnormal Heart Sounds: no systolic murmur, no diastolic murmur, no rub, no S3 Gallop, no S4 Gallop, no click, no other - Gastrointestinal General gastrointestinal: normal bowel sounds, soft - Integumentary Integumentary: normal, normal turgor - Neurologic Neurologic: CNII-XII intact - Musculoskeletal Musculoskeletal: gait normal, strength equal bilaterally - Psychiatric Psychiatric: A&O x's 3, appropriate affect, intact judgment & insight Results CBC & Chem 7: 11/02/17 05:07 11/02/17 05:07 Labs: Abnormal Lab Results - Last 24 Hours (Table) 11/01/17 11/02/17 Range/Units 13:52 05:07 Sodium 147 H (137-145) mmol/L BUN 19 H (7-17) mg/dL Glucose 106 H (74-99) mg/dL Alkaline Phosphatase 155 H (38-126) U/L Laboratory Results WBC 6.7 k/uL (3.8-10.6) 11/02/17 05:07 RBC 4.45 m/uL (3.80-5.40) 11/02/17 05:07 Hgb 12.4 gm/dL (11.4-16.0) 11/02/17 05:07 Hct 37.3 % (34.0-46.0) 11/02/17 05:07 MCV 84.0 fL (80.0-100.0) 11/02/17 05:07 MCH 27.8 pg (25.0-35.0) 11/02/17 05:07 MCHC 33.1 g/dL (31.0-37.0) 11/02/17 05:07 RDW 13.4 % (11.5-15.5) 11/02/17 05:07 Plt Count 219 k/uL (150-450) 11/02/17 05:07 Neutrophils % 61 % 11/02/17 05:07 Lymphocytes % 29 % 11/02/17 05:07 Monocytes % 6 % 11/02/17 05:07 Eosinophils % 1 % 11/02/17 05:07 Basophils % 0 % 11/02/17 05:07 Neutrophils # 4.1 k/uL (1.3-7.7) 11/02/17 05:07 Lymphocytes # 2.0 k/uL (1.0-4.8) 11/02/17 05:07 Monocytes # 0.4 k/uL (0-1.0) 11/02/17 05:07 Eosinophils # 0.1 k/uL (0-0.7) 11/02/17 05:07 Basophils # 0.0 k/uL (0-0.2) 11/02/17 05:07 PT 9.9 sec (9.0-12.0) 11/01/17 13:52 INR 1.0 (<1.2) 11/01/17 13:52 APTT 25.1 sec (22.0-30.0) 11/01/17 13:52 Sodium 143 mmol/L (137-145) 11/02/17 05:07 Potassium 4.2 mmol/L (3.5-5.1) 11/02/17 05:07 Chloride 104 mmol/L (98-107) 11/02/17 05:07 Carbon Dioxide 28 mmol/L (22-30) 11/02/17 05:07 Anion Gap 11 mmol/L 11/02/17 05:07 BUN 19 mg/dL (7-17) H 11/02/17 05:07 Creatinine 0.80 mg/dL (0.52-1.04) 11/02/17 05:07 Est GFR (CKD-EPI)AfAm >90 (>60 ml/min/1.73 sqM) 11/02/17 05:07 Est GFR (CKD-EPI)NonAf 79 (>60 ml/min/1.73 sqM) 11/02/17 05:07 Glucose 93 mg/dL (74-99) 11/02/17 05:07 Calcium 9.2 mg/dL (8.4-10.2) 11/02/17 05:07 Phosphorus 4.3 mg/dL (2.5-4.5) 11/02/17 05:07 Magnesium 2.0 mg/dL (1.6-2.3) 11/02/17 05:07 Total Bilirubin 0.3 mg/dL (0.2-1.3) 11/01/17 13:52 AST 19 U/L (14-36) 11/01/17 13:52 ALT 22 U/L (9-52) 11/01/17 13:52 Alkaline Phosphatase 155 U/L (38-126) H 11/01/17 13:52 Troponin I <0.012 ng/mL (0.000-0.034) 11/02/17 01:35 NT-Pro-B Natriuret Pep 550 pg/mL 11/01/17 13:52 Total Protein 6.9 g/dL (6.3-8.2) 11/01/17 13:52 Albumin 3.9 g/dL (3.5-5.0) 11/01/17 13:52 Thrombosis Risk Factor Assmnt - DVT/VTE Prophylaxis DVT/VTE Prophylaxis: Pharmacologic Prophylaxis ordered - Choose All That Apply Any of the Below Risk Factors Present?: Yes Each Factor Represents 1 point: Obesity (BMI >25) Other Risk Factors: Yes Each Risk Factor Represents 2 Points: Age 61-74 years, Patient confined to bed Thrombosis Risk Factor Assessment Total Risk Factor Score: 5 Thrombosis Risk Factor Assessment Level: High Risk Assessment and Plan Plan: 1. Left side spontaneous Large pneumothorax approximately 50-60% with some mediastinal shift, required emergent Thoravent insertion to suction, patient currently is in ICU, followed closely by Dr. Mcnulty. Chest x-ray will be followed serially, incentive spirometry,, opiates for pain control, patient was counseled regarding acuteness of its use only, and side effects dependency for narcotic use, repeat CAT scan prior to thoravent removal 2 Acute hypoxic respiratory failure secondary to spontaneous pneumothorax left side 3. Hypothyroidism on levothyroxine 137 mg daily 4. Hypertension on losartan 100 mg daily 5. Hyperlipidemia on Lipitor 20 mg daily 6. BMI of 40 monitor for hyperglycemia, patient might need A1c 7. Aspirin for cardiac prophylaxis, currently on hold, would clarify pulmonary the soonest possible time to initiate this medication 8. Isolated elevation of alkaline phosphatase, most likely secondary to bony sequestration from disorder of aging bone no history of fractures, continue to monitor for liver function test 9. 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 Mcnulty's office , this was discussed with Dr. Mcnulty, outpatient surveillance possible thoracic surgeon consultation at that time if alpha-1 levels are low DVT prophylaxis, on SCDs and heparin subcu Prema score 5 GI prophylaxis IV Pepcid
[2017-11-02] MEDS: ENOXAPARIN 40 MG/0.4 ML SYRINGE SQ SCH (18:46)
[2017-11-02] MEDS: ATORVASTATIN 20 MG TAB PO SCH (20:13)
[2017-11-03 05:25] LABS: Basophils % (A) 0 %; Eosinophils # (A) 0.1 k/uL (0-0.7); Eosinophils % (A) 1 %; HCT 40.7 % (34.0-46.0); HGB 13.5 gm/dL (11.4-16.0); Lymphocytes # (A) 1.9 k/uL (1.0-4.8); Lymphocytes % (A) 29 %; MCH 27.8 pg (25.0-35.0); MCHC 33.1 g/dL (31.0-37.0); MCV 83.8 fL (80.0-100.0); Mean Platelet Volume 7.1; Monocytes # (A) 0.4 k/uL (0-1.0); Monocytes % (A) 6 %; Neutrophils # (A) 3.8 k/uL (1.3-7.7); Neutrophils % (A) 61 %; Platelet Count 221 k/uL (150-450); RBC 4.86 m/uL (3.80-5.40); RDW 13.4 % (11.5-15.5); WBC 6.3 k/uL (3.8-10.6)
[2017-11-03 05:41] LABS: Calcium 9.2 mg/dL (8.4-10.2); Phosphorus 3.6 mg/dL (2.5-4.5); Potassium 3.7 mmol/L (3.5-5.1)
[2017-11-03 05:55] LABS: Magnesium 1.9 mg/dL (1.6-2.3)
[2017-11-03] MEDS ORDERED: Potassium Replacement Protocol 1 EACH MISC MISCELLANE PRN (06:18)
[2017-11-03] MEDS: LEVOTHYROXINE 137 MCG TAB PO SCH (06:21)
[2017-11-03] MEDS ORDERED: POTASSIUM CHLORIDE ER 20 MEQ TAB.ER PO SCH (07:00)
--- NOTE | 2017-11-03 08:16 | XR ---
EXAMINATION TYPE: XR chest 1V portable DATE OF EXAM: 11/03/2017 HISTORY: Shortness of breath. COMPARISON: 11/02/2017 TECHNIQUE: Single view of the chest is submitted. FINDINGS: Demonstrated are scattered senescent parenchymal change. Left-sided pleural catheter is unchanged in position. No evidence for sizable pneumothorax. Improved aeration at the lung bases with the persistent areas of linear atelectasis. The heart is stable. Hilar and mediastinal structures are within normal limits. Degenerative changes are seen of the dorsal spine. IMPRESSION: 1. Improved aeration at the lung bases with the persistent areas of linear atelectasis. 2. No evidence for sizable left-sided pneumothorax.
[2017-11-03] MEDS: HYDROCHLOROTHIAZIDE 12.5 MG CAP PO SCH (08:28)
[2017-11-03] MEDS: FAMOTIDINE 20 MG TAB PO SCH ×2 (08:28→20:22)
[2017-11-03] MEDS: LOSARTAN 50 MG TAB PO SCH (08:28)
[2017-11-03] MEDS: ASPIRIN 81 MG PO SCH (08:29)
[2017-11-03] MEDS: CALCIUM POLYCARBOPHIL 625 MG TAB PO SCH (12:38)
--- NOTE | 2017-11-03 14:01 | P.PN ---
Subjective Progress Note Date: 11/03/17 A 62-year-old female patient, obese with a BMI of 40.2, well-developed an upper respiratory checked infection approximately 2 weeks ago and the patient has been seen in urgent care for antibiotics. She continued to have vigorous cough and she progressively became more short of breath and the patient presented to her primary care physician Dr. Gandhi ordered an outpatient chest x-ray. The chest x-ray was done and the patient was found to have a pneumothorax. The patient got called back from the hospital to come in to the emergency department and based on the findings the patient was admitted to the observation unit. Currently the patient is on 100% nonrebreather facemask and hemodynamically stable. She is short of breath with minimal amount of activity. She is quite comfortable at rest. No signs of tension. No pleurisy. No chest pain. No hypotension. No rib fracture. No falls. No previous history of pneumothoraces in the past. Based on the radiology description the patient is a 20% pneumothorax on the left yet on examination she has significantly diminished breath sounds on the left compared to the right. A stat CAT scan of the chest was ordered. On 11/02/2017 the patient is being seen for a follow-up. Note that the CAT scan of the chest was done yesterday and the patient had a large left-sided pneumothorax estimated to be around 6070%. She had also some mediastinal shift. She was moved to the intensive care unit. I performed a Thoavent insertion and the procedure was done successfully with complete expansion of the left lung. Today's chest x-ray shows no evidence of pneumothorax and the patient has no air leak. Meanwhile the FiO2 has been weaned down to room air and the patient was taken off the on the percent on a beta facemask. She still has some atelectatic changes and left lung base. He is using incentive spirometer. No other complaints for now. She is calm and comfortable. No other significant issues overnight. She remains hemodynamically stable. No cough and episodes. On 11/03/2017 I'm seeing this patient for a follow-up. The patient has no respiratory difficulties. No cough sputum production chest tightness or wheezing. The chest x-ray from today shows complete expansion of the left lung. No evidence of any pneumothorax. No evidence of any leaks from the tube. Based on this, the tube was capped. The patient is on 94% on room air oxygen. No hypotension. No hemodynamic instability. No other significant events over the past 24 hours. Objective - Vital Signs Vital signs: Vital Signs Temp 98 F 11/03/17 12:00 Pulse 76 11/03/17 12:00 Resp 19 11/03/17 12:00 BP 125/80 11/03/17 12:00 Pulse Ox 95 11/03/17 12:00 Intake & Output 11/02/17 11/03/17 11/03/17 18:59 06:59 18:59 Intake Total 60 480 500 Output Total 0 0 Balance 60 480 500 Weight 113.4 kg 112 kg Intake: Oral 60 480 500 Output: Chest Tube Drainage 0 0 Thora-Vent Left Upper Mid 0 0 -Clavicular Chest Urine 0 0 Other: Voiding Method Toilet Toilet # Voids 1 1 2 # Bowel Movements 0 - Exam Morbidly obese, comfortable a mild degree of respiratory distress. Head exam was generally normal. There was no scleral icterus or corneal arcus. Mucous membranes were moist.Neck was supple and without jugular venous distension, thyromegaly, or carotid bruits.thoravent over the anterior chest on the left and air entry in the left is improved and is within normal limits for now.. Right lung are clear.Cardiac exam revealed the PMI to be normally situated and sized. The rhythm was regular and no extrasystoles were noted during several minutes of auscultation. The first and second heart sounds were normal and physiologic splitting of the second heart sound was noted. There were no murmurs , rubs, clicks, or gallops.Abdominal exam revealed normal bowel sounds. The abdomen was soft, non-tender, and without masses, organomegaly, or appreciable enlargement of the abdominal aorta.Examination of the extremities revealed easily palpable radial, femoral and pedal pulses. There was no cyanosis, clubbing or edema. Examination of the skin revealed no evidence of significant rashes, suspicious appearing nevi or other concerning lesions. neurologically the patient is awake and alert and there is no focal neurological deficits. - Labs CBC & Chem 7: 11/03/17 04:53 11/03/17 09:36 Labs: Abnormal Lab Results - Last 24 Hours (Table) 11/03/17 Range/Units 04:53 BUN 19 H (7-17) mg/dL Assessment and Plan Plan: Assessment 1 acute left-sided pneumothorax, large, associated with severe hypoxemia and some mediastinal shift. Patient is status post Thoravent insertion with reexpansion of the left lung. The chest x-ray from 11/03/2017 showed improved aeration of the lung on the left and the patient has some limited atelectatic changes in lung bases without evidence of any sizable pneumothorax. 2 acute hypoxic respiratory failure secondary to above, recovered 3 acute shortness of breath secondary to above, recovered 4 recent symptoms of bronchitis with vigorous cough underlying this patient's pneumothorax, recovered 5 obesity with a BMI of 40.2 6 remote history of cervical cancer 7 hyperlipidemia 8 hypertension 9 hypothyroidism 10 suspected alpha-1 antitrypsin deficiency and this can be checked on outpatient basis later stage. Plan Daily chest x-rays. Incentive spirometer. The chest tube was Capped. Repeat chest x-ray in the morning. If all is normal we'll remove the Thoravent. Encourage using incentive spirometer. The patient is awaiting a medical surgical bed to be transferred out. Continue the bronchodilators.
[2017-11-03] MEDS: ENOXAPARIN 40 MG/0.4 ML SYRINGE SQ SCH (18:09)
[2017-11-03] MEDS: ATORVASTATIN 20 MG TAB PO SCH (20:22)
[2017-11-04] MEDS: LEVOTHYROXINE 137 MCG TAB PO SCH (06:20)
--- NOTE | 2017-11-04 07:12 | XR ---
EXAMINATION TYPE: XR chest 1V portable DATE OF EXAM: 11/04/2017 HISTORY: Left sided pneumothorax, status post Thoravent. REFERENCE: Previous study dated 11/03/2017. FINDINGS: A Heimlich valve remains in place on the left. No definite pneumothorax is identified. Ther e is some atelectatic change present at the left lung base. The heart is mildly enlarged. No sizable effusion is seen. IMPRESSION: STABLE APPEARANCE TO THE CHEST.
--- NOTE | 2017-11-04 07:49 | P.PN ---
Subjective Progress Note Date: 11/03/17 This a pleasant 62-year-old lady patient of Dr. Gandhi. She has underlying history off hypertension, hyperlipidemia, hypothyroidism, morbid obesity, known history of diabetes CVA or DVT, admitted emergency room secondary to two-week history off upper respiratory, presenting with shortness of breath, and cough. Patient was seen and urgent care, and was prescribed antibiotics, after patient did not get any better, she had increasing shortness of breath and wheeze, she saw Dr. Hernandez urgently with a chest x-ray done, Dr. Gandhi has seen the chest x-ray report, and was advised to come into the emergency room secondary to the pneumothorax this will be her first episode, based on the x-ray 20% on the left In the emergency room, patient was even ox therafter thoravent was placed evening off 11/01/2017, and was stabilized in ICU upon the request of Dr. Mcnulty 11/03: Patient remains in ICU as [facility] overflow. She has been hemodynamically stable and now downgraded to med-surg floor. Chest x-ray shows no sizeable left sided pneumothorax. Pulseox is 97% on room air. Chest tube has been capped. Anticipate discharge home tomorrow. Objective - Vital Signs Vital signs: Vital Signs Temp 98 F 11/03/17 12:00 Pulse 76 11/03/17 12:00 Resp 19 11/03/17 12:00 BP 125/80 11/03/17 12:00 Pulse Ox 95 11/03/17 12:00 Intake & Output 11/02/17 11/03/17 11/03/17 18:59 06:59 18:59 Intake Total 60 480 500 Output Total 0 0 Balance 60 480 500 Weight 113.4 kg 112 kg Intake: Oral 60 480 500 Output: Chest Tube Drainage 0 0 Thora-Vent Left Upper Mid 0 0 -Clavicular Chest Urine 0 0 Other: Voiding Method Toilet Toilet # Voids 1 1 2 # Bowel Movements 0 - Exam General appearance: cooperative, no acute distress, obese - EENT Eyes: anicteric sclerae, EOMI, PERRLA ENT: NA/AT, normal oropharynx - Neck Neck: normal ROM - Respiratory Respiratory: bilateral: CTA, negative: dullness, rales, rhonchi, wheezing, prolonged expiration, prolonged inspiration - Cardiovascular Rhythm: regular Heart sounds: normal: S1, S2 Abnormal Heart Sounds: no systolic murmur, no diastolic murmur, no rub, no S3 Gallop, no S4 Gallop, no click, no other - Gastrointestinal General gastrointestinal: normal bowel sounds, soft - Integumentary Integumentary: normal, normal turgor - Neurologic Neurologic: CNII-XII intact - Musculoskeletal Musculoskeletal: gait normal, strength equal bilaterally - Psychiatric Psychiatric: A&O x's 3, appropriate affect, intact judgment & insight - Labs CBC & Chem 7: 11/03/17 04:53 11/03/17 09:36 Labs: Abnormal Lab Results - Last 24 Hours (Table) 11/03/17 Range/Units 04:53 BUN 19 H (7-17) mg/dL Assessment and Plan Plan: 1. Left side spontaneous Large pneumothorax approximately 50-60% with some mediastinal shift, required emergent Thoravent insertion to suction, followed closely by Dr. Mcnulty. Chest x-ray to be repeated in am. ThoraVent capped 2 Acute hypoxic respiratory failure secondary to spontaneous pneumothorax left side 3. Hypothyroidism on levothyroxine 137 mg daily 4. Hypertension on losartan 100 mg daily 5. Hyperlipidemia on Lipitor 20 mg daily 6. BMI of 40 monitor for hyperglycemia, patient might need A1c 7. Aspirin for cardiac prophylaxis 8. Isolated elevation of alkaline phosphatase, most likely secondary to bony sequestration from disorder of aging bone no history of fractures, continue to monitor for liver function test 9. 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 Mcnulty's office , this was discussed with Dr. Mcnulty, outpatient surveillance possible thoracic surgeon consultation at that time if alpha-1 levels are low DVT prophylaxis, on SCDs and heparin subcu Prema score 5 GI prophylaxis IV Pepcid Discharge plan: home on Monday Impression and plan of care have been directed as dictated by the signing physician. Cherelle Akers nurse practitioner acting as scribe for signing physician.
[2017-11-04] MEDS: ASPIRIN 81 MG PO SCH (08:10)
[2017-11-04] MEDS: FAMOTIDINE 20 MG TAB PO SCH (08:10)
[2017-11-04] MEDS: LOSARTAN 50 MG TAB PO SCH (08:10)
[2017-11-04] MEDS: HYDROCHLOROTHIAZIDE 12.5 MG CAP PO SCH (08:10)
[2017-11-04 08:29] LABS: Basophils % (A) 0 %; Eosinophils # (A) 0.1 k/uL (0-0.7); Eosinophils % (A) 2 %; HCT 39.8 % (34.0-46.0); HGB 13.4 gm/dL (11.4-16.0); Lymphocytes # (A) 1.4 k/uL (1.0-4.8); Lymphocytes % (A) 24 %; MCH 28.2 pg (25.0-35.0); MCHC 33.7 g/dL (31.0-37.0); MCV 83.6 fL (80.0-100.0); Mean Platelet Volume 7.8; Monocytes # (A) 0.4 k/uL (0-1.0); Monocytes % (A) 6 %; Neutrophils # (A) 3.9 k/uL (1.3-7.7); Neutrophils % (A) 66 %; Platelet Count 208 k/uL (150-450); RBC 4.76 m/uL (3.80-5.40); RDW 13.7 % (11.5-15.5)
[2017-11-04 08:41] LABS: Calcium 9.3 mg/dL (8.4-10.2); Magnesium 1.9 mg/dL (1.6-2.3); Phosphorus 3.5 mg/dL (2.5-4.5); Potassium 3.8 mmol/L (3.5-5.1)
--- NOTE | 2017-11-04 11:40 | P.DS ---
Providers Date of admission: 11/01/17 15:17 Attending physician: Kelsi Orozco Consults: 11/01/17 14:48 Consult Physician Routine Consulting Provider: Adalid Mcnulty Consult Reason/Comments: pneumothorax Do you want consulting provider notified?: Yes Primary care physician: Braden Gandhi [facility] Course: This is 62 years old female who presented to the hospital with shortness of breath that has been going for long time but initial imaging in the emergency showed left-sided pneumothorax without previous evidence of pneumothorax patient received emergent catheter placement to her left chest and repeated x- ray showed stability this morning I discussed the case with chemical analyst who recommended removal of catheter and repeat chest x-ray in 2 hours and consider discharging patient's home if the chest x-ray showed stability patient to follow -up with chemical analyst in his office etiology felt to be related to her history of smoking and emphysema patient is aware with the consequences with smoking and patients will require pulmonary function test on outpatient basis patient was discharged in stable condition to follow-up with her primary care physician in 3 days and scheduled appointment with chemical analyst Patient Condition at Discharge: Fair Plan - Discharge Summary Discharge Rx Participant: Yes New Discharge Prescriptions: No Action Atorvastatin [Lipitor] 20 mg PO HS Aspirin EC [Ecotrin Low Dose] 81 mg PO DAILY Levothyroxine Sodium [Synthroid] 137 mcg PO DAILY Calcium Polycarbophil [Fibercon] 625 mg PO DAILY Losartan Potassium 100 mg PO QAM Discharge Medication List Atorvastatin [Lipitor] 20 mg PO HS 01/27/16 [History] Aspirin EC [Ecotrin Low Dose] 81 mg PO DAILY 12/07/16 [History] Levothyroxine Sodium [Synthroid] 137 mcg PO DAILY 12/07/16 [History] Calcium Polycarbophil [Fibercon] 625 mg PO DAILY 11/01/17 [History] Losartan Potassium 100 mg PO QAM 11/01/17 [History] Follow up Appointment(s)/Referral(s): Braden Gandhi DO [Primary Care Provider] - 1-2 days
[2017-11-04] MEDS: CALCIUM POLYCARBOPHIL 625 MG TAB PO SCH (13:24)
--- NOTE | 2017-11-04 13:32 | XR ---
EXAMINATION TYPE: XR chest 2V DATE OF EXAM: 11/04/2017 HISTORY: post-chest tube removal. REFERENCE: Previous study of earlier today. FINDINGS: The patient's Heimlich valve has been removed. There is a miniscule apical pneumothorax. [place] ngs otherwise clear. Pleural spaces are clear. Heart size upper limits of normal. IMPRESSION: MINIMAL LEFT APICAL PNEUMOTHORAX FOLLOWING HEIMLICH VALVE REMOVAL.
[2017-11-04 14:39] VITALS: BP 111/58; PULSE 73; RESP 18; TEMP 98.1
--- NOTE | 2017-11-04 16:38 | P.PN ---
Subjective Progress Note Date: 11/04/17 A 62-year-old female patient, obese with a BMI of 40.2, well-developed an upper respiratory checked infection approximately 2 weeks ago and the patient has been seen in urgent care for antibiotics. She continued to have vigorous cough and she progressively became more short of breath and the patient presented to her primary care physician Dr. Gandhi ordered an outpatient chest x-ray. The chest x-ray was done and the patient was found to have a pneumothorax. The patient got called back from the hospital to come in to the emergency department and based on the findings the patient was admitted to the observation unit. Currently the patient is on 100% nonrebreather facemask and hemodynamically stable. She is short of breath with minimal amount of activity. She is quite comfortable at rest. No signs of tension. No pleurisy. No chest pain. No hypotension. No rib fracture. No falls. No previous history of pneumothoraces in the past. Based on the radiology description the patient is a 20% pneumothorax on the left yet on examination she has significantly diminished breath sounds on the left compared to the right. A stat CAT scan of the chest was ordered. On 11/02/2017 the patient is being seen for a follow-up. Note that the CAT scan of the chest was done yesterday and the patient had a large left-sided pneumothorax estimated to be around 6070%. She had also some mediastinal shift. She was moved to the intensive care unit. I performed a Thoavent insertion and the procedure was done successfully with complete expansion of the left lung. Today's chest x-ray shows no evidence of pneumothorax and the patient has no air leak. Meanwhile the FiO2 has been weaned down to room air and the patient was taken off the on the percent on a beta facemask. She still has some atelectatic changes and left lung base. He is using incentive spirometer. No other complaints for now. She is calm and comfortable. No other significant issues overnight. She remains hemodynamically stable. No cough and episodes. On 11/03/2017 I'm seeing this patient for a follow-up. The patient has no respiratory difficulties. No cough sputum production chest tightness or wheezing. The chest x-ray from today shows complete expansion of the left lung. No evidence of any pneumothorax. No evidence of any leaks from the tube. Based on this, the tube was capped. The patient is on 94% on room air oxygen. No hypotension. No hemodynamic instability. No other significant events over the past 24 hours. On 11/04/2017 the patient has no specific complaints. The chest x-ray from today shows full expansion of the left lung without evidence of any pneumothorax. The Thoravent has been capped for the past 24 hours. Based on this, the patient's Thoravent was discontinued this morning and the patient had a follow-up chest x-ray that showed no evidence of any residual pneumothorax on the left. The patient can be discharged home today to be followed up on outpatient basis. Objective - Vital Signs Vital signs: Vital Signs Temp 98.1 F 11/04/17 13:55 Pulse 73 11/04/17 13:55 Resp 18 11/04/17 13:55 BP 111/58 11/04/17 13:55 Pulse Ox 95 11/04/17 13:55 Intake & Output 11/03/17 11/04/17 11/04/17 18:59 06:59 18:59 Intake Total 750 480 Output Total 0 Balance 750 480 Weight 112 kg Intake: Oral 750 480 Output: Urine 0 Other: Voiding Method Toilet Toilet Toilet # Voids 1 2 3 # Bowel Movements 0 0 0 - Exam Morbidly obese, comfortable a mild degree of respiratory distress. Head exam was generally normal. There was no scleral icterus or corneal arcus. Mucous membranes were moist.Neck was supple and without jugular venous distension, thyromegaly, or carotid bruits lung sounds are diminished bilaterally otherwise clear in the breath sounds are equal and symmetrical. The Thoravent has been discontinued... Right lung are clear.Cardiac exam revealed the PMI to be normally situated and sized. The rhythm was regular and no extrasystoles were noted during several minutes of auscultation. The first and second heart sounds were normal and physiologic splitting of the second heart sound was noted. There were no murmurs, rubs, clicks, or gallops.Abdominal exam revealed normal bowel sounds. The abdomen was soft, non-tender, and without masses, organomegaly , or appreciable enlargement of the abdominal aorta.Examination of the extremities revealed easily palpable radial, femoral and pedal pulses. There was no cyanosis, clubbing or edema. Examination of the skin revealed no evidence of significant rashes, suspicious appearing nevi or other concerning lesions. neurologically the patient is awake and alert and there is no focal neurological deficits. - Labs CBC & Chem 7: 11/04/17 07:22 11/04/17 07:22 Assessment and Plan Plan: Assessment 1 acute left-sided pneumothorax, large, associated with severe hypoxemia and some mediastinal shift. Recovered following insertion of a Thoravent and the Thoravent was discontinued this morning without any complications. 2 acute hypoxic respiratory failure secondary to above, recovered 3 acute shortness of breath secondary to above, recovered 4 recent symptoms of bronchitis with vigorous cough underlying this patient's pneumothorax, recovered 5 obesity with a BMI of 40.2 6 remote history of cervical cancer 7 hyperlipidemia 8 hypertension 9 hypothyroidism 10 suspected alpha-1 antitrypsin deficiency and this can be checked on outpatient basis later stage. Plan Patient can be discharged home to follow-up on outpatient basis in the office. I'll see her back next week.
== END 2017-11-04 16:30 | disposition home or self-care (01) | DRG 199 ==
LOC: EC 13:22 → 3OBS 15:16 → OBSVTOIN 15:17 → 6ICU 20:20 → 5MS5E 11-03 15:57
PROVIDERS: ADMIT Family Medicine; ATTEND Family Medicine
PROC: 0W9B30Z Drainage of Left Pleural Cavity with Drainage Device, Percutaneous Approach (ICD-10-PCS; principal; 2017-11-01)
DX: J93.83 Other pneumothorax (principal); J96.01 Acute respiratory failure with hypoxia; Z68.41 Body mass index [BMI] 40.0-44.9, adult; E03.9 Hypothyroidism, unspecified; I10 Essential (primary) hypertension; E78.5 Hyperlipidemia, unspecified; R74.8 Abnormal levels of other serum enzymes; M06.9 Rheumatoid arthritis, unspecified; E66.01 Morbid (severe) obesity due to excess calories; E11.9 Type 2 diabetes mellitus without complications; J43.9 Emphysema, unspecified; Z96.60 Presence of unspecified orthopedic joint implant; K21.9 Gastro-esophageal reflux disease without esophagitis; Z88.6 Allergy status to analgesic agent; Z88.0 Allergy status to penicillin; Z91.018 Allergy to other foods; Z79.899 Other long term (current) drug therapy; Z79.82 Long term (current) use of aspirin; Z84.1 Family history of disorders of kidney and ureter; Z82.49 Family history of ischemic heart disease and other diseases of the circulatory system; Z82.5 Family history of asthma and other chronic lower respiratory diseases; Z83.49 Family history of other endocrine, nutritional and metabolic diseases; Z87.891 Personal history of nicotine dependence; Z90.89 Acquired absence of other organs; Z90.49 Acquired absence of other specified parts of digestive tract; Z90.710 Acquired absence of both cervix and uterus; Z98.51 Tubal ligation status; Z87.01 Personal history of pneumonia (recurrent); Z86.19 Personal history of other infectious and parasitic diseases; Z85.41 Personal history of malignant neoplasm of cervix uteri; Z86.73 Personal history of transient ischemic attack (TIA), and cerebral infarction without residual deficits
CPT/HCPCS: 36415; 71045; 71046; 71260; 80048; 80053; 83735; 83880; 84100; 84132; 84443; 84484; 85025; 85610; 85730; 93005; 99285

== ENCOUNTER → 2018-01-03 | Outpatient (CLI) | payer OTHER ==
--- NOTE | 2018-01-03 14:51 | BD ---
EXAMINATION TYPE: Axial Bone Density DATE OF EXAM: 01/03/2018 COMPARISON: NONE CLINICAL HISTORY: screening Height: 5'5 Weight: 247 FRAX RISK QUESTIONS: Secondary Osteoporosis: RISK FACTORS HISTORY OF: Active: no Diet low in dairy products/other sources of calcium: yes Postmenopausal woman: y MEDICATIONS: Thyroid Medications: Which medication: Levothyroxine How Lon years Additional Medications: blood pressure, aspirin Additional History: cervical cancer age 45 EXAM MEASUREMENTS: Bone mineral densitometry was performed using the [employer] System. Bone mineral density as measured about the Lumbar spine is: ----- L1-L4(G/cm2): 1.259 T Score Values are as follows: ----- L2: 0.7 ----- L3: 0.9 ----- L4: 0.5 ----- L1-L4:0.7 Bone mineral density about the R hip (g/cm2): 1.187 Bone mineral density about the L hip (g/cm2): 1.110 T Score values are as follows: -----R Neck: 1.1 -----L Neck: 0.5 -----R Total: 2.0 -----L Total: 1.9 IMPRESSION: Normal (Values between +1 and -1 indicate normal bone mass). Consider repeating this study in 5 year s or sooner if there is some new clinical indication. NOTE: T-SCORE=SD OF THE YOUNG ADULT MEAN.
--- NOTE | 2018-01-04 14:29 | MM ---
Reason for exam: screening (asymptomatic). Last mammogram was performed 1 year and 6 months ago. History: Patient is postmenopausal and has history of other cancer at age 42. Family history of breast cancer in maternal aunt. Benign MG stereo VAD BX LT of the left breast, April 21, 2014. Physical Findings: A clinical breast exam by your physician is recommended on an annual basis and results should be correlated with mammographic findings. MG Screening Mammo w CAD Bilateral CC and MLO view(s) were taken. XCCL view(s) were taken of the right breast. Prior study comparison: June 24, 2016, bilateral MG screening mammo w CAD. April 09, 2014, left breast MG diagnostic mammo LT w CAD. The breast tissue is heterogeneously dense. This may lower the sensitivity of mammography. There are benign appearing stable left breast calcifications and scattered right calcifications. Left biopsy marker noted. ASSESSMENT: Benign, BI-RAD 2 RECOMMENDATION: Routine screening mammogram of both breasts in 1 year.
== END | disposition home or self-care (01) ==
LOC: RADMAMWWP 06:49
PROVIDERS: ATTEND Family Medicine
DX: Z12.31 Encounter for screening mammogram for malignant neoplasm of breast (principal); M19.90 Unspecified osteoarthritis, unspecified site
CPT/HCPCS: 77067; 77080

== ENCOUNTER → 2018-05-24 | Outpatient (CLI) | payer OTHER ==
[2018-05-24 11:08] LABS: Basophils % (A) 0 %; Eosinophils # (A) 0.1 k/uL (0-0.7); Eosinophils % (A) 2 %; HCT 40.5 % (34.0-46.0); HGB 12.9 gm/dL (11.4-16.0); Lymphocytes % (A) 29 %; MCH 27.2 pg (25.0-35.0); MCHC 31.9 g/dL (31.0-37.0); MCV 85.1 fL (80.0-100.0); Mean Platelet Volume 6.9; Monocytes # (A) 0.5 k/uL (0-1.0); Monocytes % (A) 7 %; Neutrophils # (A) 4.1 k/uL (1.3-7.7); Neutrophils % (A) 59 %; Platelet Count 233 k/uL (150-450); RBC 4.75 m/uL (3.80-5.40); RDW 13.8 % (11.5-15.5); WBC 6.8 k/uL (3.8-10.6)
[2018-05-24 17:48] LABS: T4, Free (Free Thyroxine) 1.3 ng/dL (0.80-1.80)
[2018-05-24 17:50] LABS: Albumin 4.6 g/dL (3.80-4.90); Albumin/Globulin Ratio 2.19 (1.20-2.10); Anion Gap 9.7 mmol/L (4.00-12.00); Carbon Dioxide 26.3 mmol/L (21.6-31.8); Globulin 2.1 g/dL (2.1-3.7); Potassium 4.1 mmol/L (3.5-5.5); Total Bilirubin 0.4 mg/dL (0.2-1.2); Total Protein 6.7 g/dL (6.2-8.2)
[2018-05-24 19:43] LABS: Hemoglobin A1C 5.7 % (4.0-6.0)
== END ==
LOC: LABWHC1 10:06
PROVIDERS: ATTEND Family Medicine
DX: Z00.00 Encounter for general adult medical examination without abnormal findings (principal); E78.5 Hyperlipidemia, unspecified; E03.9 Hypothyroidism, unspecified; J44.9 Chronic obstructive pulmonary disease, unspecified
CPT/HCPCS: 36415; 80053; 83036; 84439; 84443; 85025; 85379

== ENCOUNTER 2018-06-12 11:57 | Emergency (ER) | payer OTHER ==
[2018-06-12 12:19] VITALS: RESP 18; TEMP 98.2
--- NOTE | 2018-06-12 12:20 | US ---
EXAMINATION TYPE: US venous doppler duplex LE BI DATE OF EXAM: 06/12/2018 11:26 AM COMPARISON: NONE CLINICAL HISTORY: Elevated D-Dimer R79.1. Patient has had bronchitis x 1 month or greater; recent jasmyne k chest pain; on daily aspirin SIDE PERFORMED: Bilateral TECHNIQUE: The lower extremity deep venous system is examined utilizing real time linear array sonog cheryl with graded compression, doppler sonography and color-flow sonography. VESSELS IMAGED: Common Femoral Vein Deep Femoral Vein Greater Saphenous Vein * Femoral Vein Popliteal Vein Small Saphenous Vein * Proximal Calf Veins (* superficial vessels) Right Leg: Is positive for non occluding DVT in CFV, Femoral Vein, Popliteal Vein and in one of two upper calf Veins, however, veins are compressible Left Leg: Is positive for non occluding DVT in CFV, Femoral Vein, Popliteal Vein and in one of two u pper calf Veins, however, veins are compressible. Tech findings called to Nirali at Dr Gandhi's Office and patient advised by Dr Gandhi to go to EC department for DVT and Chest pain evaluation. IMPRESSION: 1. Findings compatible with DVT.
--- NOTE | 2018-06-12 14:15 | ED ---
General Adult HPI - General Chief complaint: Recheck/Abnormal Lab/Rx Stated complaint: DVT Time Seen by Provider: 06/12/18 13:34 Source: patient, RN notes reviewed Mode of arrival: wheelchair Limitations: no limitations - History of Present Illness Initial comments: This is a 62-year-old female who is had shortness of breath or past 10 days no overt chest pain patient was seen by her doctor d-dimer was done which was elevated she had a ultrasound of the lower extremities demonstrated bilateral knee. Patient will be evaluated for possibility of pulmonary embolism. No prior history of blood clots per the patient. She does states she went to [place] and back in the middle of April of this year. She is a nonsmoker she quit about 5 years ago. No palpitations dizziness or other symptoms patient did deny any calf pain or leg pain. No swelling. Patient also states she's been having a cough for the past at least several days. - Related Data Home Medications Medication Instructions Recorded Confirmed Atorvastatin [Lipitor] 20 mg PO HS 01/27/16 06/12/18 Aspirin EC [Ecotrin Low Dose] 81 mg PO DAILY 12/07/16 06/12/18 Levothyroxine Sodium [Synthroid] 137 mcg PO DAILY 12/07/16 06/12/18 Losartan Potassium 100 mg PO QAM 11/01/17 06/12/18 Beclomethasone Dipropionate [Qvar 1 puff INHALATION BID 06/12/18 06/12/18 40 mcg Redihaler] Loratadine 10 mg PO DAILY 06/12/18 06/12/18 Ranitidine HCl 150 mg PO BID 06/12/18 06/12/18 Previous Rx's Medication Instructions Recorded Apixaban [Eliquis] 5 mg PO BID #60 tab 06/12/18 Benzonatate [Tessalon Perles] 100 mg PO TID PRN #30 capsule 06/12/18 Allergies Allergy/AdvReac Type Severity Reaction Status Date / Time codeine Allergy Rash/Hives Verified 11/01/17 15:09 Penicillins Allergy Rash/Hives Verified 11/01/17 15:09 strawberry Allergy Verified 06/12/18 13:59 tomato Allergy Dyspnea Verified 11/01/17 17:30 chocolate flavor AdvReac Unknown Verified 11/01/17 17:30 Review of Systems ROS Statement: Those systems with pertinent positive or pertinent negative responses have been documented in the HPI. ROS Other: All systems not noted in ROS Statement are negative. Past Medical History Past Medical History: Cancer, GERD/Reflux, Hyperlipidemia, Hypertension, Pneumonia, Thyroid Disorder Additional Past Medical History / Comment(s): Obesity, hypertension, hyperlipidemia, shingles approximately 9 years ago, acid reflux, cervical cancer History of Any Multi-Drug Resistant Organisms: None Reported Past Surgical History: Appendectomy, Cholecystectomy, Hysterectomy, Joint Replacement, Orthopedic Surgery, Tonsillectomy, Tubal Ligation Additional Past Surgical History / Comment(s): vicenta carpal tunnel , rt breast bx- neg, lt rotaotr cuff Past Anesthesia/Blood Transfusion Reactions: No Reported Reaction Additional Past Anesthesia/Blood Transfusion Reaction / Comment(s): never recieved blood Past Psychological History: No Psychological Hx Reported Smoking Status: Never smoker Past Drug Use History: None Reported - Past Family History Mother Family Medical History: AFIB, COPD, Hyperlipidemia, Hypertension, Osteoarthritis (OA), Thyroid Disorder Additional Family Medical History / Comment(s): pacemaker Father Family Medical History: Cancer, Hypertension, Rheumatoid Arthritis (RA) Additional Family Medical History / Comment(s): 4 sisters 1 with congenital Kidney disease, hypertension, 1 brother healthy, 0 daughters and 2 sons healthy General Exam - General Exam Comments Initial Comments: This a well-developed well-nourished awake alert oriented 3 female Limitations: no limitations General appearance: alert, in no apparent distress Head exam: Present: atraumatic, normocephalic, normal inspection Eye exam: Present: normal appearance, PERRL, EOMI. Absent: scleral icterus, conjunctival injection, periorbital swelling ENT exam: Present: normal exam, mucous membranes moist Neck exam: Present: normal inspection. Absent: tenderness, meningismus, lymphadenopathy Respiratory exam: Present: normal lung sounds bilaterally. Absent: respiratory distress, wheezes, rales, rhonchi, stridor Cardiovascular Exam: Present: regular rate, normal rhythm, normal heart sounds. Absent: systolic murmur, diastolic murmur, rubs, gallop, clicks GI/Abdominal exam: Present: soft, normal bowel sounds. Absent: distended, tenderness, guarding, rebound, rigid Extremities exam: Present: normal inspection, full ROM, normal capillary refill. Absent: tenderness, pedal edema, joint swelling, calf tenderness Back exam: Present: normal inspection Neurological exam: Present: alert, oriented X3, CN II-XII intact Psychiatric exam: Present: normal affect, normal mood Skin exam: Present: warm, dry, intact, normal color. Absent: rash Course Vital Signs 06/12/18 06/12/18 12:16 15:54 Temperature 98.2 F Pulse Rate 71 75 Respiratory 18 18 Rate Blood Pressure 174/95 187/92 O2 Sat by Pulse 98 97 Oximetry EKG Findings - EKG Results: EKG: interpreted by JOSE, YESENIAL, sinus rhythm, normal axis, normal QRS, normal ST/ T, no acute changes (Normal sinus rhythm a 71 appear interval 148 QRS duration 80 QT since QTC 412/447 this is a normal-appearing EKG. Some artifact is present however.) Medical Decision Making - Medical Decision Making I did discuss the findings with the patient and family members as well as with Dr. Lennon. The patient is a candidate for outpatient treatment with oral anticoagulants. After discussion with the patient she is in agreement with this she will be started on Eliquis and follow up outpatient with her doctor. - Lab Data Result diagrams: 06/12/18 14:45 06/12/18 14:45 Lab Results 06/12/18 06/12/18 06/12/18 Range/Units 14:45 14:45 14:45 WBC 10.9 H (3.8-10.6) k/uL RBC 4.51 (3.80-5.40) m/uL Hgb 12.5 (11.4-16.0) gm/dL Hct 37.7 (34.0-46.0) % MCV 83.7 (80.0-100.0) fL MCH 27.8 (25.0-35.0) pg MCHC 33.2 (31.0-37.0) g/dL RDW 14.0 (11.5-15.5) % Plt Count 260 (150-450) k/uL Neutrophils % 72 % Lymphocytes % 18 % Monocytes % 5 % Eosinophils % 3 % Basophils % 0 % Neutrophils # 7.8 H (1.3-7.7) k/uL Lymphocytes # 2.0 (1.0-4.8) k/uL Monocytes # 0.6 (0-1.0) k/uL Eosinophils # 0.3 (0-0.7) k/uL Basophils # 0.0 (0-0.2) k/uL D-Dimer (<0.60) mg/L FEU Sodium (137-145) mmol/L Potassium (3.5-5.1) mmol/L Chloride (98-107) mmol/L Carbon Dioxide (22-30) mmol/L Anion Gap mmol/L BUN (7-17) mg/dL Creatinine (0.52-1.04) mg/dL Est GFR (CKD-EPI)AfAm (>60 ml/min/1.73 sqM) Est GFR (CKD-EPI)NonAf (>60 ml/min/1.73 sqM) Glucose (74-99) mg/dL Calcium (8.4-10.2) mg/dL Magnesium (1.6-2.3) mg/dL Total Bilirubin (0.2-1.3) mg/dL AST (14-36) U/L ALT (9-52) U/L Alkaline Phosphatase (38-126) U/L Total Creatine Kinase 58 (30-135) U/L CK-MB (CK-2) 0.5 (0.0-2.4) ng/mL CK-MB (CK-2) Rel Index 0.9 NT-Pro-B Natriuret Pep 193 pg/mL Total Protein (6.3-8.2) g/dL Albumin (3.5-5.0) g/dL 06/12/18 06/12/18 Range/Units 14:45 15:54 WBC (3.8-10.6) k/uL RBC (3.80-5.40) m/uL Hgb (11.4-16.0) gm/dL Hct (34.0-46.0) % MCV (80.0-100.0) fL MCH (25.0-35.0) pg MCHC (31.0-37.0) g/dL RDW (11.5-15.5) % Plt Count (150-450) k/uL Neutrophils % % Lymphocytes % % Monocytes % % Eosinophils % % Basophils % % Neutrophils # (1.3-7.7) k/uL Lymphocytes # (1.0-4.8) k/uL Monocytes # (0-1.0) k/uL Eosinophils # (0-0.7) k/uL Basophils # (0-0.2) k/uL D-Dimer 0.65 H (<0.60) mg/L FEU Sodium 142 (137-145) mmol/L Potassium 4.6 (3.5-5.1) mmol/L Chloride 105 (98-107) mmol/L Carbon Dioxide 27 (22-30) mmol/L Anion Gap 10 mmol/L BUN 18 H (7-17) mg/dL Creatinine 0.81 (0.52-1.04) mg/dL Est GFR (CKD-EPI)AfAm >90 (>60 ml/min/1.73 sqM) Est GFR (CKD-EPI)NonAf 78 (>60 ml/min/1.73 sqM) Glucose 81 (74-99) mg/dL Calcium 9.5 (8.4-10.2) mg/dL Magnesium 2.3 (1.6-2.3) mg/dL Total Bilirubin 0.5 (0.2-1.3) mg/dL AST 22 (14-36) U/L ALT 25 (9-52) U/L Alkaline Phosphatase 160 H (38-126) U/L Total Creatine Kinase (30-135) U/L CK-MB (CK-2) (0.0-2.4) ng/mL CK-MB (CK-2) Rel Index NT-Pro-B Natriuret Pep pg/mL Total Protein 8.2 (6.3-8.2) g/dL Albumin 4.6 (3.5-5.0) g/dL - Radiology Data Radiology results: report reviewed (CT shows no evidence of PE there is DVT and ultrasound.), image reviewed Disposition Clinical Impression: DVT (deep venous thrombosis), Cough, Bronchitis Disposition: HOME SELF-CARE Condition: Good Instructions: Acute Bronchitis (ED), Deep Vein Thrombosis (ED) Prescriptions: Apixaban [Eliquis] 5 mg PO BID #60 tab Benzonatate [Tessalon Perles] 100 mg PO TID PRN #30 capsule PRN Reason: Cough Is patient prescribed a controlled substance at d/c from ED?: No Referrals: Braden Gandhi DO [Primary Care Provider] - 1-2 days
[2018-06-12 15:17] LABS: Basophils % (A) 0 %; Eosinophils # (A) 0.3 k/uL (0-0.7); Eosinophils % (A) 3 %; HCT 37.7 % (34.0-46.0); HGB 12.5 gm/dL (11.4-16.0); Lymphocytes % (A) 18 %; MCH 27.8 pg (25.0-35.0); MCHC 33.2 g/dL (31.0-37.0); MCV 83.7 fL (80.0-100.0); Mean Platelet Volume 7.3; Monocytes # (A) 0.6 k/uL (0-1.0); Monocytes % (A) 5 %; Neutrophils # (A) 7.8 k/uL (1.3-7.7); Neutrophils % (A) 72 %; Platelet Count 260 k/uL (150-450); RBC 4.51 m/uL (3.80-5.40); WBC 10.9 k/uL (3.8-10.6)
[2018-06-12 15:22] LABS: ALT 25 U/L (9-52); AST 22 U/L (14-36); Albumin 4.6 g/dL (3.5-5.0); Alkaline Phosphatase 160 U/L (38-126); Anion Gap 10 mmol/L; Blood Urea Nitrogen 18 mg/dL (7-17); Calcium 9.5 mg/dL (8.4-10.2); Carbon Dioxide 27 mmol/L (22-30); Chloride 105 mmol/L (98-107); Glucose 81 mg/dL (74-99); Magnesium 2.3 mg/dL (1.6-2.3); Potassium 4.6 mmol/L (3.5-5.1); Sodium 142 mmol/L (137-145); Total Bilirubin 0.5 mg/dL (0.2-1.3); Total Protein 8.2 g/dL (6.3-8.2)
[2018-06-12 15:34] LABS: Creatine Kinase MB 0.5 ng/mL (0.0-2.4)
--- NOTE | 2018-06-12 16:00 | CT ---
EXAMINATION TYPE: CT angio chest DATE OF EXAM: 06/12/2018 COMPARISON: none HISTORY: Known DVTs, cough x [address] DLP: 508.6 mGycm CONTRAST: CT chest with contrast and 3D reconstruction with MIP imaging is performed with IV Contrast, patient injected with 85 mL of Isovue 370. Contrast-enhanced CT of the chest was performed through the course of the pulmonary arteries with delia g and mediastinal window settings submitted. 3D reconstruction with MIP imaging was also performed. PULMONARY ARTERIES: The pulmonary arteries and their major tributaries are patent. I do not see martha dence for sizable filling defect to suggest pulmonary embolic process. LUNGS: The lungs are clear and free of infiltrate. No evidence for atelectasis. No pulmonary nodule or mass is detected. No pleural effusion. MEDIASTINUM: Thoracic aorta is of normal caliber,however, evaluation is limited given timing of the contrast bolus. If there is concern for thoracic aortic pathology consider ZEYNEP. Correlate clinicall y . The heart is not enlarged. No evidence for mediastinal mass. No mediastinal lymph nodes greater than 1cm. HILAR STRUCTURES: No evidence for mass. No hilar lymph nodes greater than 1 cm. UPPER ABDOMEN: No significant abnormality is seen. IMPRESSION: 1. No evidence for Pulmonary embolism at this time.
[2018-06-12] MEDS ORDERED: APIXABAN 5 MG TAB PO STA (16:50)
[2018-06-12 17:14] VITALS: BP 169/86; PULSE 82
== END 2018-06-12 17:23 | disposition home or self-care (01) ==
LOC: EC 11:57 → EDSTATUS 12:20 → EC 17:23
DX: I82.4Z3 Acute embolism and thrombosis of unspecified deep veins of distal lower extremity, bilateral (principal); I82.413 Acute embolism and thrombosis of femoral vein, bilateral; I82.433 Acute embolism and thrombosis of popliteal vein, bilateral; J40 Bronchitis, not specified as acute or chronic; K21.9 Gastro-esophageal reflux disease without esophagitis; E78.5 Hyperlipidemia, unspecified; I10 Essential (primary) hypertension; E07.9 Disorder of thyroid, unspecified; Z85.41 Personal history of malignant neoplasm of cervix uteri; Z96.89 Presence of other specified functional implants; Z82.5 Family history of asthma and other chronic lower respiratory diseases; Z79.82 Long term (current) use of aspirin; Z79.51 Long term (current) use of inhaled steroids; Z79.899 Other long term (current) drug therapy; Z88.5 Allergy status to narcotic agent; Z88.0 Allergy status to penicillin; Z91.018 Allergy to other foods
CPT/HCPCS: 36415; 93005; 85379; 83880; 80053; 82550; 82553; 83735; 85025; 93970; 71275; 99284; Q9967

== ENCOUNTER → 2019-03-11 | Outpatient (CLI) | payer OTHER ==
--- NOTE | 2019-03-12 10:35 | MM ---
Reason for exam: screening (asymptomatic). Last mammogram was performed 1 year and 2 months ago. History: Patient is postmenopausal and has history of other cancer at age 42. Family history of breast cancer in maternal aunt. Benign MG stereo VAD BX LT of the left breast, April 21, 2014. MG Screening Mammo w CAD Bilateral CC and MLO view(s) were taken. Prior study comparison: January 03, 2018, bilateral MG screening mammo w CAD. June 24, 2016, bilateral MG screening mammo w CAD. The breast tissue is heterogeneously dense. This may lower the sensitivity of mammography. No significant new finding when compared with prior studies. ASSESSMENT: Benign, BI-RAD 2 RECOMMENDATION: Routine screening mammogram of both breasts in 1 year.
== END | disposition home or self-care (01) ==
LOC: RADMAMWWP 06:46
PROVIDERS: ATTEND Family Medicine
DX: Z12.31 Encounter for screening mammogram for malignant neoplasm of breast (principal)
CPT/HCPCS: 77067

== ENCOUNTER 2019-11-11 04:58 | Emergency (ER) | payer MEDICARE, OTHER ==
[2019-11-11 05:20] VITALS: TEMP 97.3
[2019-11-11] MEDS ORDERED: ONDANSETRON 4 MG/2 ML VIAL IVP STA (05:30)
[2019-11-11] MEDS ORDERED: SILVER NITRATE APPLICATOR 1 EACH STICK..EA. TOPICAL STA ×2 (05:40→05:47)
[2019-11-11 05:50] LABS: Basophils % (A) 1 %; Eosinophils # (A) 0.2 k/uL (0-0.7); Eosinophils % (A) 2 %; HCT 39.5 % (34.0-46.0); HGB 12.5 gm/dL (11.4-16.0); Lymphocytes % (A) 27 %; MCH 26.7 pg (25.0-35.0); MCHC 31.6 g/dL (31.0-37.0); MCV 84.4 fL (80.0-100.0); Mean Platelet Volume 8.2; Monocytes # (A) 0.5 k/uL (0-1.0); Monocytes % (A) 7 %; Neutrophils # (A) 4.6 k/uL (1.3-7.7); Neutrophils % (A) 61 %; Platelet Count 211 k/uL (150-450); RBC 4.68 m/uL (3.80-5.40); RDW 14.4 % (11.5-15.5); WBC 7.5 k/uL (3.8-10.6)
[2019-11-11 05:58] LABS: Total Bilirubin 0.3 mg/dL (0.2-1.3); Total Protein 6.8 g/dL (6.3-8.2)
[2019-11-11 06:01] VITALS: BP 116/71; PULSE 71; RESP 16
[2019-11-11 06:01] LABS: INR 0.9 (<1.2); Partial Thromboplastin Time 22.4 sec (22.0-30.0); Prothrombin Time 9.8 sec (9.0-12.0)
--- NOTE | 2019-11-11 06:20 | ED ---
ENT HPI - General Chief complaint: ENT Stated complaint: Nosebleed Time Seen by Provider: 11/11/19 05:05 Source: patient, EMS Mode of arrival: EMS Limitations: no limitations - History of Present Illness Initial comments: The patient is a 64-year-old female past history of hypertension, hyperlipidemia who presents to the emergency room with reported epistaxis. The patient states around 2 am she awoke from sleep bloody nose. She tended to hold pressure on it however cannot get the bleeding to stop. She called EMS and upon transported the patient to be extreme hypertensive with a blood pressure 191/92. Patient does have a history of hypertension and states her blood pressures have been elevating as of recently. She denies being on any blood thinners. No history of chronic epistaxis. Does not use oxygen or CPAP at home. Denies hematemesis, melenic stools or hematochezia. Denies any shortness of breath. She felt well going to bed. Denies any digital trauma. There are no other alleviating, precipitating or modifying factors - Related Data Home Medications Medication Instructions Recorded Confirmed Atorvastatin [Lipitor] 20 mg PO HS 01/27/16 06/12/18 Aspirin EC [Ecotrin Low Dose] 81 mg PO DAILY 12/07/16 06/12/18 Levothyroxine Sodium [Synthroid] 137 mcg PO DAILY 12/07/16 06/12/18 Losartan Potassium 100 mg PO QAM 11/01/17 06/12/18 Beclomethasone Dipropionate [Qvar 1 puff INHALATION BID 06/12/18 06/12/18 40 mcg Redihaler] Loratadine 10 mg PO DAILY 06/12/18 06/12/18 Ranitidine HCl 150 mg PO BID 06/12/18 06/12/18 Previous Rx's Medication Instructions Recorded Apixaban [Eliquis] 5 mg PO BID #60 tab 06/12/18 Benzonatate [Tessalon Perles] 100 mg PO TID PRN #30 capsule 06/12/18 Allergies Allergy/AdvReac Type Severity Reaction Status Date / Time codeine Allergy Rash/Hives Verified 11/01/17 15:09 Penicillins Allergy Rash/Hives Verified 11/01/17 15:09 strawberry Allergy Verified 06/12/18 13:59 tomato Allergy Dyspnea Verified 11/01/17 17:30 chocolate flavor AdvReac Unknown Verified 11/01/17 17:30 Review of Systems ROS Statement: Those systems with pertinent positive or pertinent negative responses have been documented in the HPI. ROS Other: All systems not noted in ROS Statement are negative. Past Medical History Past Medical History: Cancer, GERD/Reflux, Hyperlipidemia, Hypertension, Pneumonia, Thyroid Disorder Additional Past Medical History / Comment(s): Obesity, hypertension, hyperlipidemia, shingles approximately 9 years ago, acid reflux, cervical cancer History of Any Multi-Drug Resistant Organisms: None Reported Past Surgical History: Appendectomy, Cholecystectomy, Hysterectomy, Joint Replacement, Orthopedic Surgery, Tonsillectomy, Tubal Ligation Additional Past Surgical History / Comment(s): vicenta carpal tunnel , rt breast bx- neg, lt rotaotr cuff Past Anesthesia/Blood Transfusion Reactions: No Reported Reaction Additional Past Anesthesia/Blood Transfusion Reaction / Comment(s): never recieved blood Past Psychological History: No Psychological Hx Reported Smoking Status: Never smoker Past Alcohol Use History: None Reported Past Drug Use History: None Reported - Past Family History Mother Family Medical History: AFIB, COPD, Hyperlipidemia, Hypertension, Osteoarthritis (OA), Thyroid Disorder Additional Family Medical History / Comment(s): pacemaker Father Family Medical History: Cancer, Hypertension, Rheumatoid Arthritis (RA) Additional Family Medical History / Comment(s): 4 sisters 1 with congenital Kidney disease, hypertension, 1 brother healthy, 0 daughters and 2 sons healthy General Exam Limitations: no limitations General appearance: alert, in no apparent distress, anxious Head exam: Present: atraumatic, normocephalic, normal inspection Eye exam: Present: normal appearance, PERRL, EOMI. Absent: scleral icterus, conjunctival injection, periorbital swelling ENT exam: Present: mucous membranes moist, other (no active bleeding bilateral nares or blood in the posterior pharynx. Mild mucosal redness at kesselbach plexus on the left side without active bleeding) Neck exam: Present: normal inspection. Absent: tenderness, meningismus, lymphadenopathy Respiratory exam: Present: normal lung sounds bilaterally. Absent: respiratory distress, wheezes, rales, rhonchi, stridor Cardiovascular Exam: Present: regular rate, normal rhythm, normal heart sounds. Absent: systolic murmur, diastolic murmur, rubs, gallop, clicks GI/Abdominal exam: Present: soft, normal bowel sounds. Absent: distended, tenderness, guarding, rebound, rigid Extremities exam: Present: normal inspection, full ROM, normal capillary refill. Absent: tenderness, pedal edema, joint swelling, calf tenderness Back exam: Present: normal inspection Neurological exam: Present: alert, oriented X3, CN II-XII intact Psychiatric exam: Present: normal affect, normal mood Skin exam: Present: warm, dry, intact, normal color. Absent: rash Course Vital Signs 11/11/19 11/11/19 11/11/19 05:00 05:02 05:05 Temperature 97.3 F L Pulse Rate 86 Respiratory 18 Rate Blood Pressure 191/92 191/92 O2 Sat by Pulse 96 92 L 94 L Oximetry 11/11/19 11/11/19 11/11/19 05:10 05:15 05:20 Temperature Pulse Rate Respiratory Rate Blood Pressure 191/92 191/92 191/92 O2 Sat by Pulse 96 94 L 93 L Oximetry 11/11/19 11/11/19 05:35 05:50 Temperature Pulse Rate 73 71 Respiratory 20 16 Rate Blood Pressure 141/78 116/71 O2 Sat by Pulse 93 L 93 L Oximetry Medical Decision Making - Medical Decision Making Upon arrival the patient is placed into room 6. A thorough history and physical exam was performed. The patient does have nasal clamps on her nose. She is asking that these are removed. They have been on for approximately 45 minutes. They are removed and there is no bleeding noted in the patient's posterior pharynx. Dilation the patient's left knee are demonstrates that she does have a pinpoint area at Erick box plexus that is not actively bleeding at this time. I did cauterize this area. Remainder of both nares are without bleeding. The patient does have some gagging for which she does appear to have a vasovagal episode. The patient did not go completely unresponsive. She was given 4 mg of Zofran and does stop heaving. I did recommend completing laboratory studies because of this episode for which the patient did agree to. Hemoccult normal at 12.5. Coagulation studies are normal. CMP is unremarkable. The patient is r eevaluated and her blood pressure has improved without medication to 116/71. The patient feels well at this time. I did reevaluate her nare and it does not demonstrate any rebleeding. At this time the patient will be discharged home and is to follow-up with ENT in regards to her epistaxis. I also recommended the patient follow up with primary care doctor and keep a log of her blood pressures. Return to the emergency room for any new worsening symptoms. Patient was in agreement treatment plan she is discharged home in stable condition - Lab Data Result diagrams: 11/11/19 05:39 11/11/19 05:39 Lab Results 11/11/19 11/11/19 11/11/19 Range/Units 05:39 05:39 05:39 WBC 7.5 (3.8-10.6) k/uL RBC 4.68 (3.80-5.40) m/uL Hgb 12.5 (11.4-16.0) gm/dL Hct 39.5 (34.0-46.0) % MCV 84.4 (80.0-100.0) fL MCH 26.7 (25.0-35.0) pg MCHC 31.6 (31.0-37.0) g/dL RDW 14.4 (11.5-15.5) % Plt Count 211 (150-450) k/uL Neutrophils % 61 % Lymphocytes % 27 % Monocytes % 7 % Eosinophils % 2 % Basophils % 1 % Neutrophils # 4.6 (1.3-7.7) k/uL Lymphocytes # 2.0 (1.0-4.8) k/uL Monocytes # 0.5 (0-1.0) k/uL Eosinophils # 0.2 (0-0.7) k/uL Basophils # 0.0 (0-0.2) k/uL PT 9.8 (9.0-12.0) sec INR 0.9 (<1.2) APTT 22.4 (22.0-30.0) sec Sodium 138 (137-145) mmol/L Potassium 4.0 (3.5-5.1) mmol/L Chloride 105 (98-107) mmol/L Carbon Dioxide 27 (22-30) mmol/L Anion Gap 6 mmol/L BUN 18 H (7-17) mg/dL Creatinine 0.80 (0.52-1.04) mg/dL Est GFR (CKD-EPI)AfAm 90 (>60 ml/min/1.73 sqM) Est GFR (CKD-EPI)NonAf 78 (>60 ml/min/1.73 sqM) Glucose 117 H (74-99) mg/dL Calcium 9.0 (8.4-10.2) mg/dL Total Bilirubin 0.3 (0.2-1.3) mg/dL AST 21 (14-36) U/L ALT 14 (4-34) U/L Alkaline Phosphatase 125 (38-126) U/L Total Protein 6.8 (6.3-8.2) g/dL Albumin 4.0 (3.5-5.0) g/dL Disposition Clinical Impression: Nosebleed, Hypertension Disposition: HOME SELF-CARE Condition: Stable Instructions (If sedation given, give patient instructions): Nosebleed (ED) Additional Instructions: Please follow-up with the ENT in regards to your nosebleed. Keep a log of your blood pressure and follow-up the primary care doctor. Return to the emergency room for any new or worsening symptoms Is patient prescribed a controlled substance at d/c from ED?: No Referrals: Braden Gandhi DO [Primary Care Provider] - 1-2 days Felipe Xiong DO [Doctor of Osteopathic Medicine] - 1-2 days Time of Disposition: 06:18
== END 2019-11-11 06:40 | disposition home or self-care (01) ==
LOC: EC 04:58
DX: R04.0 Epistaxis (principal); I10 Essential (primary) hypertension; K21.9 Gastro-esophageal reflux disease without esophagitis; E78.5 Hyperlipidemia, unspecified; E07.9 Disorder of thyroid, unspecified; E66.9 Obesity, unspecified; Z68.41 Body mass index [BMI] 40.0-44.9, adult; Z96.698 Presence of other orthopedic joint implants; Z85.41 Personal history of malignant neoplasm of cervix uteri; Z79.82 Long term (current) use of aspirin; Z79.890 Hormone replacement therapy; Z79.51 Long term (current) use of inhaled steroids; Z79.899 Other long term (current) drug therapy; Z88.5 Allergy status to narcotic agent; Z88.0 Allergy status to penicillin; Z91.018 Allergy to other foods
CPT/HCPCS: 36415; 80053; 85025; 85610; 85730; 99284; 30901; 96374; J2405

== ENCOUNTER → 2020-06-22 | Outpatient (CLI) | payer MEDICARE, OTHER ==
--- NOTE | 2020-06-22 16:15 | US ---
EXAMINATION TYPE: US carotid duplex BILAT DATE OF EXAM: 06/22/2020 COMPARISON: NONE CLINICAL HISTORY: 64-year-old female H53.2 double vision. Double vision for 1.5 months TECHNIQUE: Carotid duplex ultrasound examination. Indirect Doppler criteria was utilized. FINDINGS: EXAM MEASUREMENTS: RIGHT: Peak Systolic Velocity (PSV) cm/sec ----- Right CCA: 116 ----- Right ICA: 123 ----- Right ECA: 155 ICA/CCA ratio: 1.06 RIGHT: End Diastole cm/sec ----- Right CCA: 24.4 ----- Right ICA: 34.6 ----- Right ECA: 25.1 LEFT: Peak Systolic Velocity (PSV) cm/sec ----- Left CCA: 96.2 ----- Left ICA: 156 ----- Left ECA: 139 ICA/CCA ratio: 1.62 LEFT: End Diastole cm/sec ----- Left CCA: 24.6 ----- Left ICA: 33.1 ----- Left ECA: 17.4 VERTEBRALS (direction of flow): Right Vertebral: Antegrade Left Vertebral: Antegrade Rhythm: Normal [employer] notes: Moderate plaque bilateral bifurcations. Increased velocities left ICA IMPRESSION: 1. Measurements suggest mild proximal ICA stenosis on the right. 2. Measurements suggest either mild or moderate proximal ICA stenosis on the left (the ICA peak systo lic velocity is increased but the ICA/CCA ratio and end-diastolic velocity is not elevated). Criteria for Assigning % of Stenosis / Diameter reduction (Estimation based on the indirect measurements of the internal carotid artery velocities (ICA PSV). 1. Normal (no stenosis)=ICA PSV < 125 cm/s: ratio < 2.0: ICA EDV<40 cm/s. 2. Less than 50% stenosis=ICA PSV < 125 cm/s: ratio < 2.0: ICA EDV<40 cm/s. 3. 50 to 69% stenosis=ICA PSV of 125 to 230 cm/s: ration 2.0 ? 4.0: ICA EDV 40-100 cm/s. 4. Greater than 70% stenosis to near occlusion= ICA PSV > 230 cm/s: ratio > 4.0: ICA EDV > 100 cm/s. 5. Near occlusion= ICA PSV velocities may be low or undetectable: variable ratio and ICA EDV. 6. Total occlusion=unable to detect flow.
--- NOTE | 2020-06-23 13:39 | ECHOF ---
Referral Reason:H53.2 double vision MEASUREMENTS -------- HEIGHT: 165.1 cm WEIGHT: 122.5 kg BP: RVIDd: 3.4 cm (< 3.3) IVSd: 0.8 cm (0.6 - 1.1) LVIDd: 5.1 cm (3.9 - 5.3) LVPWd: 1.0 cm (0.6 - 1.1) IVSs: 1.3 cm LVIDs: 3.6 cm LVPWs: 1.5 cm LA Diam: 3.9 cm (2.7 - 3.8) Ao Diam: 2.3 cm (2.0 - 3.7) AV Cusp: 1.3 cm (1.5 - 2.6) LA Diam: 4.1 cm (2.7 - 3.8) MV EXCURSION: 17.180 mm (> 18.000) MV EF SLOPE: 63 mm/s (70 - 150) EPSS: 0.7 cm MV E Fortunato: 0.45 m/s MV DecT: 213 ms MV A Fortunato: 0.55 m/s MV E/A Ratio: 0.82 AV maxP.58 mmHg AV meanP.26 mmHg RAP: 5.00 mmHg RVSP: 12.60 mmHg FINDINGS -------- Sinus rhythm. Morbid Obesity This was a techncally difficult study with suboptimal views, , Lumason utilized for enhancement of images. The left ventricular size is normal. There is moderate concentric left ventricular hypertrophy. O verall left ventricular systolic function is normal with, an EF between 55 - 60 %. The right ventricle is normal in size. The left atrial size is normal. The right atrial size is normal. 5.0mg OF Lumason UTLIZED: 2 OR MORE WALL SEGMENTS NOT VISUALIZED. The aortic valve was not well visualized. There is mild aortic stenosis present. Peak/mean gradie nt across the Aortic Valve is 18.58mmHg / 11.26mmHg. Mild mitral regurgitation is present. Mild tricuspid regurgitation present. Right ventricular systolic pressure is normal at < 35 mmHg. The pulmonic valve was not well visualized. The aortic root size is normal. There is no pericardial effusion. CONCLUSIONS -------- 1. Morbid Obesity 2. This was a techncally difficult study with suboptimal views, , Lumason utilized for enhancement of images. 3. The left ventricular size is normal. 4. There is moderate concentric left ventricular hypertrophy. 5. Overall left ventricular systolic function is normal with, an EF between 55 - 60 %. 6. The right ventricle is normal in size. 7. The left atrial size is normal. 8. The right atrial size is normal. 9. 5.0mg OF Lumason UTLIZED: 2 OR MORE WALL SEGMENTS NOT VISUALIZED. 10. The aortic valve was not well visualized. 11. There is mild aortic stenosis present. 12. Peak/mean gradient across the Aortic Valve is 18.58mmHg / 11.26mmHg. 13. Mild mitral regurgitation is present. 14. Mild tricuspid regurgitation present. 15. The pulmonic valve was not well visualized. 16. The aortic root size is normal. 17. There is no pericardial effusion. CAD ADMINISTRATOR: Maryam Coronado RDCS
== END | disposition home or self-care (01) ==
LOC: RADECHMAIN 13:38
PROVIDERS: ATTEND Family Medicine
DX: I08.1 Rheumatic disorders of both mitral and tricuspid valves (principal); E66.01 Morbid (severe) obesity due to excess calories; Z68.41 Body mass index [BMI] 40.0-44.9, adult; H53.2 Diplopia
CPT/HCPCS: 93880; C8929; Q9950; 93306

== ENCOUNTER → 2020-07-02 | Outpatient (CLI) | payer MEDICARE, OTHER ==
--- NOTE | 2020-07-03 06:57 | CT ---
EXAMINATION TYPE: CT brain wo con DATE OF EXAM: 07/02/2020 HISTORY: double vision, both eyes CT DLP: 1027.90 mGycm. Automated Exposure Control for Dose Reduction was Utilized. TECHNIQUE: CT scan of the head is performed without contrast. COMPARISON: None. FINDINGS: There is no acute intracranial hemorrhage or midline shift identified. There is diffuse v entricular and sulcal prominence consistent with diffuse age-related cerebral atrophy. There is low- attenuation in the periventricular white matter consistent with chronic small vessel ischemic change. The globes are intact and the visualized sinuses are clear. IMPRESSION: No acute intracranial hemorrhage or midline shift. There is mild diffuse age-related ce rebral atrophy and chronic small vessel ischemic change noted.
== END | disposition home or self-care (01) ==
LOC: RADCTMAIN 18:11
PROVIDERS: ATTEND Family Medicine
DX: G31.1 Senile degeneration of brain, not elsewhere classified (principal); I67.82 Cerebral ischemia
CPT/HCPCS: 70450

== ENCOUNTER → 2020-07-06 | Outpatient (CLI) | payer MEDICARE, OTHER ==
--- NOTE | 2020-07-06 11:57 | P.STRESS ---
- Stress Test Note Stress Test Results/Findings: Exam Performed: stress test Exam Date: 07/06/20 Reason for Exam: CHEST PAIN Height: 5 ft 5 in Weight: 120.5 kg Protocol: GAUTAM Stage: 2 Duration of Exercise: 4:09 MINUTES Resting Heart Rate: 69 Resting Blood Pressure: 137/65 Maximum Achieved Heart Rate: 129 Maximum Achieved Blood Pressure: 202/67 85% PMHR: 132 100% PMHR: 155 METS: 5.8 Technologist Comment: Stress Test Results/Findings: This is a 64-year-old female with history of hypertension, hypercholesterolemia, smoking history, being evaluated for symptoms of chest pain. Stress data: Baseline EKG showed sinus rhythm with normal NE interval and QRS duration. Blood pressure at rest is 137/65 with pulse rate of 69. Patient walk ed on the Gautam protocol for 4 minutes achieving a maximum rate of 129 with a blood pressure 202/62. EKGs taken during Exercise did not reveal any changes of ischemia. Occasional PVCs were noted. The test was terminated because of complaints of shortness of breath and fatigue. Final impression: #1. Inconclusive stress test as patient did not achieve 85% predicted heart rate. But at the level of exercise that the patient was achieved, there is no evidence of ischemia #2. Limited excess capacity #3. Occasional PVCs
--- NOTE | 2020-07-06 14:18 | EST ---
Stress Test Results/Findings: Exam Performed: stress test Exam Date: 07/06/20 Reason for Exam: CHEST PAIN Height: 5 ft 5 in Weight: 120.5 kg Protocol: GAUTAM Stage: 2 Duration of Exercise: 4:09 MINUTES Resting Heart Rate: 69 Resting Blood Pressure: 137/65 Maximum Achieved Heart Rate: 129 Maximum Achieved Blood Pressure: 202/67 85% PMHR: 132 100% PMHR: 155 METS: 5.8 Technologist Comment: Stress Test Results/Findings: This is a 64-year-old female with history of hypertension, hypercholesterolemia, smoking history, being evaluated for symptoms of chest pain. Stress data: Baseline EKG showed sinus rhythm with normal MO interval and QRS duration. Blood pressure at rest is 137/65 with pulse rate of 69. Patient walked on the Gautam protocol for 4 minutes achieving a maximum rate of 129 with a blood pressure 202/62. EKGs taken during Exercise did not reveal any changes of ischemia. Occasional PVCs were noted. The test was terminated because of complaints of shortness of breath and fatigue. Final impression: #1. Inconclusive stress test as patient did not achieve 85% predicted heart rate. But at the level of exercise that the patient was achieved, there is no evidence of ischemia #2. Limited excess capacity #3. Occasional PVCs MTDD
== END | disposition home or self-care (01) ==
LOC: RADNMMAIN 10:40
PROVIDERS: ATTEND Family Medicine
DX: R94.39 Abnormal result of other cardiovascular function study (principal); R07.9 Chest pain, unspecified
CPT/HCPCS: 93017

== ENCOUNTER → 2020-09-07 | Outpatient (CLI) | payer MEDICARE, OTHER | END | disposition home or self-care (01) | LOC: LABWHC1 08:07 | PROVIDERS: ATTEND Psychiatry & Neurology Neurology | DX: H53.2 Diplopia (principal); R55 Syncope and collapse | CPT/HCPCS: 36415; 82306; 82607 ==

== ENCOUNTER → 2020-09-12 | Outpatient (CLI) | payer MEDICARE, OTHER ==
--- NOTE | 2020-09-12 15:03 | MR ---
EXAMINATION TYPE: MR brain wo/w con DATE OF EXAM: 09/12/2020 COMPARISON: None HISTORY: Double vision since April and has started getting worse since June. CONTRAST: Standard multiplanar, multisequence MRI departmental protocol utilizing 12 mL intravenous Gadavist ga dolinium contrast. There is mild cerebral cortical atrophy. There is no mass effect nor midline shift. There is no sign of intracranial hemorrhage. Diffusion images show no evidence of an acute infarct. On the T2 and FLAIR images there are multiple foci of increased signal in both cerebral hemispheres a t the wells-white matter junction and also adjacent to the lateral ventricles. This is more noticeable in the parietal lobes and total number of lesions is approximately 20. Lesions are small and mostly measure 2 to 3 mm. The largest measures 5 mm. Brainstem is intact. The corpus callosum is intact. Sella turcica appears normal. Contrast images show no pathologic enhancement. There is normal enhancement of the venous sinuses. IMPRESSION: Multiple small white matter high signal foci are nonspecific and could relate to chronic small vessel ischemia or demyelinating disease. No evidence of a cortical infarct.
== END | disposition home or self-care (01) ==
LOC: RADMRIMAIN 12:29
PROVIDERS: ATTEND Family Medicine
DX: R90.82 White matter disease, unspecified (principal)
CPT/HCPCS: 70553; A9585

== ENCOUNTER → 2020-09-14 | Outpatient (CLI) | payer MEDICARE, OTHER ==
--- NOTE | 2020-09-15 11:20 | MM ---
Reason for exam: screening (asymptomatic). Last mammogram was performed 1 year and 6 months ago. History: Patient is postmenopausal and has history of other cancer at age 42. Family history of breast cancer in maternal aunt. Benign MG stereo VAD BX LT of the left breast, April 21, 2014. Physical Findings: A clinical breast exam by your physician is recommended on an annual basis and results should be correlated with mammographic findings. MG Screening Mammo w CAD Bilateral CC and MLO view(s) were taken. Prior study comparison: March 11, 2019, bilateral MG screening mammo w CAD. January 03, 2018, bilateral MG screening mammo w CAD. There are scattered fibroglandular densities. Previous mammotome biopsy in the left breast. There is chronic nodularity in the left breast. Stable right upper outer quadrant focal asymmetry and left upper outer quadrant global asymmetry. No significant changes when compared with prior studies. ASSESSMENT: Benign, BI-RAD 2 RECOMMENDATION: Routine screening mammogram of both breasts in 1 year.
== END ==
LOC: RADMAMWWP 10:48
PROVIDERS: ATTEND Family Medicine
DX: Z12.31 Encounter for screening mammogram for malignant neoplasm of breast (principal); Z78.0 Asymptomatic menopausal state; Z80.3 Family history of malignant neoplasm of breast
CPT/HCPCS: 77067

== ENCOUNTER → 2021-02-11 | Outpatient (CLI) | payer MEDICARE, OTHER | END | disposition home or self-care (01) | LOC: LABWHC1 07:06 | PROVIDERS: ATTEND Psychiatry & Neurology Neurology | DX: G70.00 Myasthenia gravis without (acute) exacerbation (principal); Z79.899 Other long term (current) drug therapy | CPT/HCPCS: 36415 ==

== ENCOUNTER → 2021-05-12 | Outpatient (CLI) | payer MEDICARE, OTHER | END | disposition home or self-care (01) | LOC: LABWHC1 15:44 | PROVIDERS: ATTEND Psychiatry & Neurology Neurology | DX: G47.00 Insomnia, unspecified (principal); Z79.899 Other long term (current) drug therapy | CPT/HCPCS: 36415; 82306 ==

== ENCOUNTER → 2021-08-26 | Outpatient (CLI) | payer MEDICARE, OTHER | END | disposition home or self-care (01) | LOC: LABWHC1 14:24 | PROVIDERS: ATTEND Psychiatry & Neurology Neurology | DX: Z51.81 Encounter for therapeutic drug level monitoring (principal); Z79.899 Other long term (current) drug therapy | CPT/HCPCS: 36415; 82306 ==

== ENCOUNTER 2022-06-21 06:55 | Inpatient (IN) | payer MEDICARE, OTHER ==
[2022-06-21] MEDS ORDERED: SODIUM CHLORIDE 0.9% 500 ML 500 ML IV STA (07:02)
--- NOTE | 2022-06-21 07:40 | ED ---
General Adult HPI - General Chief complaint: Shortness of Breath Stated complaint: COVID Time Seen by Provider: 06/21/22 06:58 Source: patient, EMS, RN notes reviewed Mode of arrival: EMS Limitations: no limitations - History of Present Illness Initial comments: This a 66-year-old female presents emergency dept via EMS chief complaint of cough and cold like symptoms. Patient states she's been sick for last couple weeks and which she tested positive for COVID-19. Patient states that she still has occasional fever states that she feels like she is improving she was prescribed antibiotics and steroids yesterday but has not started this morning. Patient states last night she had some rib pain, shortness of breath which concerned the patient. She states she does feel improved at this time she has a history of COPD is not oxygen dependent. Patient denies any pleuritic pain no leg pain or leg swelling denies any history of PE or DVT. - Related Data Home Medications Medication Instructions Recorded Confirmed Atorvastatin [Lipitor] 20 mg PO HS 01/27/16 06/12/18 Aspirin EC [Ecotrin Low Dose] 81 mg PO DAILY 12/07/16 06/12/18 Levothyroxine Sodium [Synthroid] 137 mcg PO DAILY 12/07/16 06/12/18 Losartan Potassium 100 mg PO QAM 11/01/17 06/12/18 Beclomethasone Dipropionate [Qvar 1 puff INHALATION BID 06/12/18 06/12/18 40 mcg Redihaler] Loratadine 10 mg PO DAILY 06/12/18 06/12/18 raNITIdine HCL [Zantac] 150 mg PO BID 06/12/18 06/12/18 Previous Rx's Medication Instructions Recorded Apixaban [Eliquis] 5 mg PO BID #60 tab 06/12/18 Benzonatate [Tessalon Perles] 100 mg PO TID PRN #30 capsule 06/12/18 Allergies Allergy/AdvReac Type Severity Reaction Status Date / Time codeine Allergy Rash/Hives Verified 11/01/17 15:09 Penicillins Allergy Rash/Hives Verified 11/01/17 15:09 strawberry Allergy Verified 06/12/18 13:59 tomato Allergy Dyspnea Verified 11/01/17 17:30 chocolate flavor AdvReac Unknown Verified 11/01/17 17:30 Review of Systems ROS Statement: Those systems with pertinent positive or pertinent negative responses have been documented in the HPI. ROS Other: All systems not noted in ROS Statement are negative. Past Medical History Past Medical History: Cancer, GERD/Reflux, Hyperlipidemia, Hypertension, Pneumonia, Thyroid Disorder Additional Past Medical History / Comment(s): Obesity, hypertension, hyperlipidemia, shingles approximately 9 years ago, acid reflux, cervical cancer History of Any Multi-Drug Resistant Organisms: None Reported Past Surgical History: Appendectomy, Cholecystectomy, Hysterectomy, Joint Replacement, Orthopedic Surgery, Tonsillectomy, Tubal Ligation Additional Past Surgical History / Comment(s): vicenta carpal tunnel , rt breast bx- neg, lt rotaotr cuff Past Anesthesia/Blood Transfusion Reactions: No Reported Reaction Additional Past Anesthesia/Blood Transfusion Reaction / Comment(s): never recieved blood Past Psychological History: No Psychological Hx Reported Past Alcohol Use History: None Reported Past Drug Use History: None Reported - Past Family History Mother Family Medical History: AFIB, COPD, Hyperlipidemia, Hypertension, Osteoarthritis (OA), Thyroid Disorder Additional Family Medical History / Comment(s): pacemaker Father Family Medical History: Cancer, Hypertension, Rheumatoid Arthritis (RA) Additional Family Medical History / Comment(s): 4 sisters 1 with congenital Kidney disease, hypertension, 1 brother healthy, 0 daughters and 2 sons healthy General Exam Limitations: no limitations General appearance: alert, in no apparent distress Head exam: Present: atraumatic, normocephalic, normal inspection Eye exam: Present: normal appearance, PERRL, EOMI. Absent: scleral icterus, conjunctival injection, periorbital swelling ENT exam: Present: normal exam, normal oropharynx, mucous membranes moist Neck exam: Present: normal inspection, full ROM. Absent: tenderness, meningismus, lymphadenopathy Respiratory exam: Present: normal lung sounds bilaterally. Absent: respiratory distress, wheezes, rales, rhonchi, stridor Cardiovascular Exam: Present: regular rate, normal rhythm, normal heart sounds. Absent: systolic murmur, diastolic murmur, rubs, gallop, clicks Back exam: Absent: CVA tenderness (R), CVA tenderness (L) Neurological exam: Present: alert Skin exam: Present: warm, dry, intact, normal color. Absent: rash Course Vital Signs 06/21/22 06/21/22 06/21/22 07:08 07:22 07:47 Temperature 98.6 F Pulse Rate 82 Respiratory 16 18 Rate Blood Pressure 130/82 O2 Sat by Pulse 94 L Oximetry 06/21/22 08:35 Temperature Pulse Rate 73 Respiratory 20 Rate Blood Pressure 124/64 O2 Sat by Pulse 94 L Oximetry EKG Findings - EKG Comments: EKG Findings:: EKG performed at 17:20 sinus rhythm rate of 77 NE 146 QRS 106 QT/QTC 372/404 - EKG Results: EKG: interpreted by JOSE Medical Decision Making - Medical Decision Making 66-year-old female presented for ongoing fever cough congestion. Patient had covid 2 weeks ago. Patient has left-sided masslike pneumonia, elevated troponin. EKG interpreted does not show any acute changes. Patient be admitted for cardiology evaluation, pulmonary evaluation - Lab Data Result diagrams: 06/21/22 07:06/21/22 07:22 Lab Results 06/21/22 06/21/22 06/21/22 Range/Units 07:22 07:22 07:22 WBC 12.1 H (3.8-10.6) k/uL RBC 4.17 (3.80-5.40) m/uL Hgb 11.8 (11.4-16.0) gm/dL Hct 35.7 (34.0-46.0) % MCV 85.6 (80.0-100.0) fL MCH 28.2 (25.0-35.0) pg MCHC 33.0 (31.0-37.0) g/dL RDW 14.0 (11.5-15.5) % Plt Count 248 (150-450) k/uL MPV 8.6 Neutrophils % 84 % Lymphocytes % 8 % Monocytes % 6 % Eosinophils % 0 % Basophils % 0 % Neutrophils # 10.1 H (1.3-7.7) k/uL Lymphocytes # 1.0 (1.0-4.8) k/uL Monocytes # 0.7 (0-1.0) k/uL Eosinophils # 0.0 (0-0.7) k/uL Basophils # 0.0 (0-0.2) k/uL Hypochromasia Slight PT 9.9 (9.0-12.0) sec INR 0.9 (<1.2) APTT 24.2 (22.0-30.0) sec Sodium 138 (137-145) mmol/L Potassium 4.0 (3.5-5.1) mmol/L Chloride 108 H (98-107) mmol/L Carbon Dioxide 27 (22-30) mmol/L Anion Gap 3 mmol/L BUN 24 H (7-17) mg/dL Creatinine 0.99 (0.52-1.04) mg/dL Est GFR (CKD-EPI)AfAm 68 (>60 ml/min/1.73 sqM) Est GFR (CKD-EPI)NonAf 59 (>60 ml/min/1.73 sqM) Glucose 111 H (74-99) mg/dL Calcium 8.5 (8.4-10.2) mg/dL Magnesium 2.0 (1.6-2.3) mg/dL Total Bilirubin 0.6 (0.2-1.3) mg/dL AST 20 (14-36) U/L ALT 15 (4-34) U/L Alkaline Phosphatase 127 H (38-126) U/L Troponin I (0.000-0.034) ng/mL NT-Pro-B Natriuret Pep pg/mL Total Protein 6.5 (6.3-8.2) g/dL Albumin 3.5 (3.5-5.0) g/dL 06/21/22 06/21/22 Range/Units 07:22 07:22 WBC (3.8-10.6) k/uL RBC (3.80-5.40) m/uL Hgb (11.4-16.0) gm/dL Hct (34.0-46.0) % MCV (80.0-100.0) fL MCH (25.0-35.0) pg MCHC (31.0-37.0) g/dL RDW (11.5-15.5) % Plt Count (150-450) k/uL MPV Neutrophils % % Lymphocytes % % Monocytes % % Eosinophils % % Basophils % % Neutrophils # (1.3-7.7) k/uL Lymphocytes # (1.0-4.8) k/uL Monocytes # (0-1.0) k/uL Eosinophils # (0-0.7) k/uL Basophils # (0-0.2) k/uL Hypochromasia PT (9.0-12.0) sec INR (<1.2) APTT (22.0-30.0) sec Sodium (137-145) mmol/L Potassium (3.5-5.1) mmol/L Chloride (98-107) mmol/L Carbon Dioxide (22-30) mmol/L Anion Gap mmol/L BUN (7-17) mg/dL Creatinine (0.52-1.04) mg/dL Est GFR (CKD-EPI)AfAm (>60 ml/min/1.73 sqM) Est GFR (CKD-EPI)NonAf (>60 ml/min/1.73 sqM) Glucose (74-99) mg/dL Calcium (8.4-10.2) mg/dL Magnesium (1.6-2.3) mg/dL Total Bilirubin (0.2-1.3) mg/dL AST (14-36) U/L ALT (4-34) U/L Alkaline Phosphatase (38-126) U/L Troponin I 0.053 H* (0.000-0.034) ng/mL NT-Pro-B Natriuret Pep 679 pg/mL Total Protein (6.3-8.2) g/dL Albumin (3.5-5.0) g/dL Disposition Clinical Impression: Pneumonia, COPD (chronic obstructive pulmonary disease), Elevated troponin Disposition: ADMITTED IP TO THIS HOSP Condition: Fair Referrals: Braden Gandhi DO [Primary Care Provider] - 1-2 days Time of Disposition: 08:53
[2022-06-21 07:49] LABS: Basophils % (A) 0 %; Eosinophils % (A) 0 %; HCT 35.7 % (34.0-46.0); HGB 11.8 gm/dL (11.4-16.0); Hypochromasia Slight; Lymphocytes % (A) 8 %; MCH 28.2 pg (25.0-35.0); MCV 85.6 fL (80.0-100.0); Mean Platelet Volume 8.6; Monocytes # (A) 0.7 k/uL (0-1.0); Monocytes % (A) 6 %; Neutrophils # (A) 10.1 k/uL (1.3-7.7); Neutrophils % (A) 84 %; Platelet Count 248 k/uL (150-450); RBC 4.17 m/uL (3.80-5.40); WBC 12.1 k/uL (3.8-10.6)
[2022-06-21 07:58] LABS: INR 0.9 (<1.2); Partial Thromboplastin Time 24.2 sec (22.0-30.0); Prothrombin Time 9.9 sec (9.0-12.0)
[2022-06-21 08:00] LABS: Albumin 3.5 g/dL (3.5-5.0); Calcium 8.5 mg/dL (8.4-10.2); Total Bilirubin 0.6 mg/dL (0.2-1.3); Total Protein 6.5 g/dL (6.3-8.2)
--- NOTE | 2022-06-21 08:22 | XR ---
EXAMINATION TYPE: XR chest 2V DATE OF EXAM: 06/21/2022 COMPARISON: Chest x-ray and CT chest 2018 HISTORY: Left-sided chest pain, recent COVID. TECHNIQUE: Frontal and lateral views of the chest are obtained. FINDINGS: Mild underlying emphysematous changes are redemonstrated. There is new focal masslike conso lidation inferior left upper lobe. Right lung remains clear. The cardiac silhouette size is mildly e nlarged. The osseous structures are intact. IMPRESSION: Mild underlying emphysematous change and mild cardiomegaly with new masslike consolidati on suspected focal pneumonia involving the inferior left upper lobe. Follow-up to resolution is advis ed to rule out underlying mass.
[2022-06-21] MEDS ORDERED: IPRATROPIUM-ALBUTEROL 3 ML NEB INHALATION PRN (08:54)
[2022-06-21] MEDS ORDERED: NITROGLYCERIN SL TABS 0.4 MG TAB SUBLINGUAL PRN (08:54)
[2022-06-21] MEDS ORDERED: PNEUMONIA PROTOCOL UTILIZED 1 EACH MISC PO PRN (08:54)
[2022-06-21] MEDS: AZITHROMYCIN 500 MG in SODIUM CHLORIDE 0.9% 250 ML IVPB STA ×2 (10:25→10:30)
[2022-06-21] MEDS ORDERED: ALBUTEROL HFA INHALER INHALATION PRN (11:08)
[2022-06-21] MEDS: ALBUTEROL HFA INHALER INHALATION SCH ×3 (11:14→20:41)
[2022-06-21] MEDS: TIOTROPIUM 2.5 MCG INHALER INHALATION SCH (11:15)
[2022-06-21] MEDS ORDERED: IPRATROPIUM-ALBUTEROL 3 ML NEB INHALATION SCH (12:00)
[2022-06-21] MEDS ORDERED: FAMOTIDINE 20 MG TAB PO PRN (14:13)
[2022-06-21 15:03] LABS: C Reactive Protein 8.3 mg/dL (<1.0)
[2022-06-21] MEDS: PYRIDOSTIGMINE 60 MG TAB PO SCH ×2 (17:58→21:19)
--- NOTE | 2022-06-21 23:37 | P.HPIM ---
History of Present Illness H&P Date: 06/21/22 Chief Complaint: Shortness of breath Patient is a 66-year-old female with a known history of hypertension, hyperlipidemia, GERD, hypothyroidism and morbid obesity BMI 40.4 presents to ER with complaints of cold-like symptoms and sharp chest pains. Patient states that she has been having symptoms for the past couple of weeks and was tested positive for COVID-19. Patient was seen by his primary care physician yesterday and was given antibiotics and steroids as an outpatient but has not started yet. Last night patient became very short of breath and having sharp pains in the ribs which made her to come to ER. Patient does have history of smoking quit 9 years ago. Denies any pleuritic chest pain. No leg swelling. No prior history of DVTs. Patient states that she started having symptoms couple days following her booster dose. Chest x-ray showed mild underlying emphysematous change and mild cardiomegaly with new masslike consolidation suspected focal pneumonia involving the inferior left upper lobe. EKG showed sinus rhythm Laboratory pressure WBC 12.1 hemoglobin 11.8 and platelets 248 Sodium 138 potassium 4.0 chloride 100 bicarb is 27 BUN 24 and creatinine 0.99 blood sugar is 111 Troponin 0.053, 0.045 and 0.031 proBNP 679 Coronavirus PCR detected. Patient is not hypoxic or tachycardic on admission Review of Systems Constitutional: Patient complains of subjective fevers at home and chills . Generalized weakness. Abdomen: Patient denied any nausea or vomiting or abd. pain Cardiovascular: Patient complains of sharp chest pains and short of breath no palpitations. Respiratory: patient denied any cough . no sputum production. No shortness of breath Neurologic: Patient denied any numbness or tingling headache. Musculoskeletal: Patient denies any complaints of joint swelling or deformity. Skin: Negative Psychiatric: Negative Endocrine: No heat or cold intolerance. No recent weight gain. Genitourinary: No dysuria or hematuria. All other 14 point ROS negative except the above Past Medical History Past Medical History: Cancer, GERD/Reflux, Hyperlipidemia, Hypertension, Pneumon ia, Thyroid Disorder Additional Past Medical History / Comment(s): Obesity, hypertension, hyperlipidemia, shingles approximately 9 years ago, acid reflux, cervical cancer, Myasthenia Gravis History of Any Multi-Drug Resistant Organisms: None Reported Past Surgical History: Appendectomy, Cholecystectomy, Hysterectomy, Joint Replacement, Orthopedic Surgery, Tonsillectomy, Tubal Ligation Additional Past Surgical History / Comment(s): vicenta carpal tunnel , rt breast bx- neg, lt rotaotr cuff Past Anesthesia/Blood Transfusion Reactions: No Reported Reaction Additional Past Anesthesia/Blood Transfusion Reaction / Comment(s): never recieved blood Past Psychological History: No Psychological Hx Reported Past Alcohol Use History: None Reported Past Drug Use History: None Reported - Past Family History Mother Family Medical History: AFIB, COPD, Hyperlipidemia, Hypertension, Osteoarthritis (OA), Thyroid Disorder Additional Family Medical History / Comment(s): pacemaker Father Family Medical History: Cancer, Hypertension, Rheumatoid Arthritis (RA) Additional Family Medical History / Comment(s): 4 sisters 1 with congenital Kidney disease, hypertension, 1 brother healthy, 0 daughters and 2 sons healthy Medications and Allergies Home Medications Medication Instructions Recorded Confirmed Type Atorvastatin [Lipitor] 20 mg PO Q5D 01/27/16 06/21/22 History Levothyroxine Sodium [Synthroid] 137 mcg PO DAILY 12/07/16 06/21/22 History Albuterol Sulfate [Ventolin HFA] 2 puff INHALATION RT-QID PRN 06/21/22 06/21/22 History Aspirin 325 mg PO DAILY 06/21/22 06/21/22 History Azithromycin [Zithromax Z Pack] See Taper PO DIRECTED 06/21/22 06/21/22 History Cyanocobalamin (Vitamin B-12) 1,000 mcg PO DAILY 06/21/22 06/21/22 History [Vitamin B-12] Cyclobenzaprine [Flexeril] 10 mg PO DAILY PRN 06/21/22 06/21/22 History Ergocalciferol [Vitamin D2 (1250 1,250 mcg PO DAILY 06/21/22 06/21/22 History Mcg = 84246 Iu)] Famotidine [Pepcid] 20 mg PO DAILY PRN 06/21/22 06/21/22 History Loratadine [Claritin] 10 mg PO DAILY 06/21/22 06/21/22 History Losartan Potassium 100 mg PO DAILY 06/21/22 06/21/22 History Nebivolol HCl [Bystolic] 10 mg PO HS 06/21/22 06/21/22 History Pyridostigmine [Mestinon] 60 mg PO QID 06/21/22 06/21/22 History methylPREDNISolone [Medrol Dose See Taper PO DIRECTED 06/21/22 06/21/22 History Pack] predniSONE 10 mg PO DAILY 06/21/22 06/21/22 History Allergies Allergy/AdvReac Type Severity Reaction Status Date / Time codeine Allergy Rash/Hives Verified 06/21/22 11:10 Penicillins Allergy Rash/Hives Verified 06/21/22 11:10 strawberry Allergy Verified 06/21/22 11:10 tomato Allergy Dyspnea Verified 06/21/22 11:10 chocolate flavor AdvReac Unknown Verified 06/21/22 11:10 Physical Exam Vitals: Vital Signs Temp Pulse Resp BP Pulse Ox 06/21/22 13:08 80 18 115/74 94 L 06/21/22 10:31 72 18 122/68 94 L 06/21/22 08:35 73 20 124/64 94 L 06/21/22 07:47 130/82 06/21/22 07:22 18 06/21/22 07:08 98.6 F 82 16 94 L Intake and Output 06/20/22 06/21/22 06/21/22 22:59 06:59 14:59 Other: Weight 113.398 kg PHYSICAL EXAMINATION: Patient is lying in the bed comfortably, no acute distress, awake alert and oriented.. HEENT: Normocephalic. Neck is supple. Pupils reactive. Nostrils clear. Oral cavity is moist. Neck reveals no JVD, carotid bruits, or thyromegaly. CHEST EXAMINATION: Trachea is central. Symmetrical expansion. Lung arauz clear to auscultation and percussion. CARDIAC: Normal S1, S2 with no gallops. No murmurs ABDOMEN: Soft. Bowel sounds present. Nontender. No organomegaly. No abdominal bruits. Extremities: reveal no edema. No clubbing or cyanosis Neurologically awake, alert, oriented x3 with well-coordinated movements. No focal deficits noted Skin: No rash or skin lesions. Psychiatric: Coperative. Nonsuicidal, Musculoskeletal: No joint swelling or deformity. Normal range of motion. Results CBC & Chem 7: 06/21/22 07:22 06/21/22 07:22 Labs: Abnormal Lab Results - Last 24 Hours (Table) 06/21/22 06/21/22 06/21/22 Range/Units 07:22 07:22 07:22 WBC 12.1 H (3.8-10.6) k/uL Neutrophils # 10.1 H (1.3-7.7) k/uL Chloride 108 H (98-107) mmol/L BUN 24 H (7-17) mg/dL Glucose 111 H (74-99) mg/dL Alkaline Phosphatase 127 H (38-126) U/L Troponin I 0.053 H* (0.000-0.034) ng/mL Coronavirus (PCR) (Not Detectd) 06/21/22 12 Range/Units 09:42 10:09 WBC (3.8-10.6) k/uL Neutrophils # (1.3-7.7) k/uL Chloride (98-107) mmol/L BUN (7-17) mg/dL Glucose (74-99) mg/dL Alkaline Phosphatase (38-126) U/L Troponin I 0.045 H* (0.000-0.034) ng/mL Coronavirus (PCR) Detected A (Not Detectd) Thrombosis Risk Factor Assmnt - DVT/VTE Prophylaxis DVT/VTE Prophylaxis: Pharmacologic Prophylaxis ordered Assessment and Plan Assessment: Left upper lobe pneumonia with masslike consolidation. Underlying mass cannot be excluded. Acute COVID-19 infection with elevated inflammatory markers. Elevated troponin level Hypertension Hyperlipidemia Hypothyroidism Morbid obesity BMI 40.4 GERD History of cervical cancer Myasthenia gravis DVT prophylaxis with Lovenox subcu Plan: Patient will be continued antibiotics in the form of ceftriaxone azithromycin. Continue with DuoNebs, GI and DVT prophylaxis. Cardiology consultation due to elevated troponin level and 2D echocardiogram was ordered. Follow-up culture reports. LDH, CRP and procalcitonin was ordered. Continue home medications and isolation precautions. Time with Patient: Greater than 30
[2022-06-22] MEDS: LEVOTHYROXINE 137 MCG TAB PO SCH (06:02)
--- NOTE | 2022-06-22 07:21 | XR ---
EXAMINATION TYPE: XR chest 1V portable DATE OF EXAM: 06/22/2022 CLINICAL HISTORY: Difficulty breathing and pneumonia progress study. TECHNIQUE: Single AP portable upright view of the chest is obtained. COMPARISON: Chest x-ray from one day earlier FINDINGS: Mild underlying emphysematous changes are redemonstrated. There is process focal masslike consolidation left mid lung. Right lung remains clear. The cardiac silhouette size remains mildly en larged. The osseous structures are intact. Overlying EKG leads are in current study is noted. IMPRESSION: Mild underlying emphysematous change and mild cardiomegaly with persistent masslike cons olidation suspected focal pneumonia involving the left mid lung. No significant change from one day e
[2022-06-22 08:06] LABS: Basophils # (A) 0.1 k/uL (0-0.2); Basophils % (A) 1 %; Eosinophils # (A) 0.1 k/uL (0-0.7); Eosinophils % (A) 1 %; HCT 38.9 % (34.0-46.0); HGB 12.2 gm/dL (11.4-16.0); Hypochromasia Marked; Lymphocytes # (A) 1.9 k/uL (1.0-4.8); Lymphocytes % (A) 18 %; MCH 27.9 pg (25.0-35.0); MCHC 31.2 g/dL (31.0-37.0); MCV 89.4 fL (80.0-100.0); Mean Platelet Volume 9.1; Monocytes # (A) 0.7 k/uL (0-1.0); Monocytes % (A) 7 %; Neutrophils # (A) 7.8 k/uL (1.3-7.7); Neutrophils % (A) 72 %; Platelet Count 221 k/uL (150-450); RBC 4.36 m/uL (3.80-5.40); RDW 14.2 % (11.5-15.5); WBC 10.9 k/uL (3.8-10.6)
[2022-06-22 08:28] LABS: African American GFR (CKD) 83 (>60 ml/min/1.73 sqM); Anion Gap 9 mmol/L; Blood Urea Nitrogen 19 mg/dL (7-17); Carbon Dioxide 22 mmol/L (22-30); Chloride 111 mmol/L (98-107); Glucose 87 mg/dL (74-99); Non-African American GFR(CKD) 72 (>60 ml/min/1.73 sqM); Sodium 142 mmol/L (137-145)
[2022-06-22 08:46] LABS: Potassium 4.6 mmol/L (3.5-5.1)
[2022-06-22] MEDS: ALBUTEROL HFA INHALER INHALATION SCH ×4 (09:00→20:56)
[2022-06-22] MEDS: TIOTROPIUM 2.5 MCG INHALER INHALATION SCH (09:01)
[2022-06-22] MEDS: AZITHROMYCIN 500 MG TAB PO SCH (09:48)
[2022-06-22] MEDS: CHOLECALCIFEROL 25 MCG (1000 IU) TABLET PO SCH (09:48)
[2022-06-22] MEDS: ASCORBIC ACID 500 MG TAB PO SCH (09:48)
[2022-06-22] MEDS: ASPIRIN 325 MG TAB PO SCH (09:48)
[2022-06-22] MEDS: ENOXAPARIN 40 MG/0.4 ML SYRINGE SQ SCH (09:48)
[2022-06-22] MEDS: PYRIDOSTIGMINE 60 MG TAB PO SCH ×4 (09:48→20:58)
[2022-06-22] MEDS: ZINC SULFATE 220 MG CAP PO SCH (09:48)
[2022-06-22 10:41] LABS: Chol/HDL Ratio 3.63 Ratio; LDL Cholesterol,Calculated 141.3 mg/dL (0.0-131.0)
--- NOTE | 2022-06-22 11:28 | P.CRDCN ---
History of Present Illness History of present illness: HISTORY OF PRESENTING ILLNESS This is a pleasant 66-year-old female past medical history significant for hypertension, dyslipidemia, hypothyroidism, GERD, former tobacco use. She does not follow with a automatic mounter. We've been asked to see in consultation for elevated troponin. Patient presents emergency department with complaints of fever, chills, productive cough. She is Covid-19 positive. She denies any chest pain at bedside. She states that last night she does get sharp chest pains majority in her ribs when she turns over in bed. Her chest pains are only when she is lying in bed and turns over. Mostly at night. She denies any exertional chest pain or shortness of breath. She denies any lightheadedness, dizziness, syncope or near syncope. She denies any history of CAD, NV, stroke, diabetes. Denies any family history of coronary artery disease. Denies any current toba finisher accordion use. Denies any alcohol or illicit drug use. DIAGNOSTICS * EKG reveals sinus rhythm, heart rate 77, no significant STT wave abnormalities suggest acute ischemia * Chest xray mild underlying emphysematous change with mild clinically persistent mass like consolidation suspected clinical pneumonia involving the left mid lung * Echocardiogram 06/2020 revealed EF 5560 percent, moderate concentric LVH, mild aortic stenosis peak/mean gradient of 18 mmHg/11 mmHg * Laboratory reviewed, troponin 0.053, 0.045, repeat negative, sodium 138, potassium 4.0, BUN 24, serum current 0.9, proBNP 679, Covid 19 positive, WBC 12.1 * Current home cardiac medications include losartan 100 mg daily, aspirin 325 mg daily, atorvastatin 20 mg. REVIEW OF SYSTEMS At the time of my exam: CONSTITUTIONAL: +fever +chills CARDIOVASCULAR: Denies chest pain, shortness of breath, orthopnea, PND or palpitations. RESPIRATORY: +productive cough. GASTROINTESTINAL: Denies abdominal pain, diarrhea, constipation, nausea or vomiting. MUSCULOSKELETAL: Denies myalgias. NEUROLOGIC: Denies numbness, tingling, headacbe or weakness. ENDOCRINE: Denies fatigue, weight change, polydipsia or polyurina. GENITOURINARY: Denies burning, hematuria or urgency with micturation. HEMATOLOGIC: Denies history of anemia or bleeding. PHYSICAL EXAMINATION Head is reviewed CONSTITUTIONAL: No apparent distress. HEENT: Head is normocephalic. Pupils are equal, round. Sclerae anicteric. Mucous membranes of the mouth are moist. No JVD. No carotid bruit. CHEST EXAMINATION: Lungs are clear to auscultation. No chest wall tenderness is noted on palpation or with deep breathing. HEART EXAMINATION: Regular rate and rhythm. S1, S2 heard. Systolic murmur at right sternal border, No gallops or rub. ABDOMEN: Soft, nontender. Positive bowel sounds. EXTREMITIES: 2+ peripheral pulses, no lower extremity edema and no calf tenderness. NEUROLOGIC EXAMINATION: Patient is awake, alert and oriented x3. ASSESSMENT Covid-19 Pneumonia Symptoms of productive cough, fever, chills Chest pain, noncardiac, likely musculoskeletal History of hypertension History of hypothyroidism Dyslipidemia Former tobacco use PLAN Obtain echocardiogram to assess cardiac structure If no acute findings on Echo no further workup from a cardiology perspective Continue home cardiac medications Rest of management per primary Nurse practitioner note has been reviewed by physician. Signing provider agrees with the documented findings, assessment, and plan of care. Past Medical History Past Medical History: Cancer, GERD/Reflux, Hyperlipidemia, Hypertension, Pneumonia, Thyroid Disorder Additional Past Medical History / Comment(s): Obesity, hypertension, hyperlipidemia, shingles approximately 9 years ago, acid reflux, cervical cancer, Myasthenia Gravis History of Any Multi-Drug Resistant Organisms: None Reported Past Surgical History: Appendectomy, Cholecystectomy, Hysterectomy, Joint Replacement, Orthopedic Surgery, Tonsillectomy, Tubal Ligation Additional Past Surgical History / Comment(s): vicenta carpal tunnel , rt breast bx- neg, lt rotaotr cuff Past Anesthesia/Blood Transfusion Reactions: No Reported Reaction Additional Past Anesthesia/Blood Transfusion Reaction / Comment(s): never recieved blood Past Psychological History: No Psychological Hx Reported Past Alcohol Use History: None Reported Past Drug Use History: None Reported - Past Family History Mother Family Medical History: AFIB, COPD, Hyperlipidemia, Hypertension, Osteoarthritis (OA), Thyroid Disorder Additional Family Medical History / Comment(s): pacemaker Father Family Medical History: Cancer, Hypertension, Rheumatoid Arthritis (RA) Additional Family Medical History / Comment(s): 4 sisters 1 with congenital Kidney disease, hypertension, 1 brother healthy, 0 daughters and 2 sons healthy Medications and Allergies Home Medications Medication Instructions Recorded Confirmed Type Atorvastatin [Lipitor] 20 mg PO Q5D 01/27/16 06/21/22 History Levothyroxine Sodium [Synthroid] 137 mcg PO DAILY 12/07/16 06/21/22 History Albuterol Sulfate [Ventolin HFA] 2 puff INHALATION RT-QID PRN 06/21/22 06/21/22 History Aspirin 325 mg PO DAILY 06/21/22 06/21/22 History Azithromycin [Zithromax Z Pack] See Taper PO DIRECTED 06/21/22 06/21/22 History Cyanocobalamin (Vitamin B-12) 1,000 mcg PO DAILY 06/21/22 06/21/22 History [Vitamin B-12] Cyclobenzaprine [Flexeril] 10 mg PO DAILY PRN 06/21/22 06/21/22 History Ergocalciferol [Vitamin D2 (1250 1,250 mcg PO DAILY 06/21/22 06/21/22 History Mcg = 33664 Iu)] Famotidine [Pepcid] 20 mg PO DAILY PRN 06/21/22 06/21/22 History Loratadine [Claritin] 10 mg PO DAILY 06/21/22 06/21/22 History Losartan Potassium 100 mg PO DAILY 06/21/22 06/21/22 History Nebivolol HCl [Bystolic] 10 mg PO HS 06/21/22 06/21/22 History Pyridostigmine [Mestinon] 60 mg PO QID 06/21/22 06/21/22 History methylPREDNISolone [Medrol Dose See Taper PO DIRECTED 06/21/22 06/21/22 Hist ory Pack] predniSONE 10 mg PO DAILY 06/21/22 06/21/22 History Allergies Allergy/AdvReac Type Severity Reaction Status Date / Time codeine Allergy Rash/Hives Verified 06/21/22 11:10 Penicillins Allergy Rash/Hives Verified 06/21/22 11:10 strawberry Allergy Verified 06/21/22 11:10 tomato Allergy Dyspnea Verified 06/21/22 11:10 chocolate flavor AdvReac Unknown Verified 06/21/22 11:10 Physical Exam Vitals: Vital Signs Temp Pulse Pulse Resp BP BP Pulse Ox 06/22/22 04:00 98.5 F 86 20 136/84 95 06/22/22 02:00 76 19 06/22/22 00:00 76 19 126/75 95 06/21/22 20:00 98.3 F 77 18 133/70 95 06/21/22 15:50 98.2 F 83 16 137/71 97 06/21/22 15:14 98.4 F 79 18 121/77 94 L 06/21/22 13:08 80 18 115/74 94 L 06/21/22 10:31 72 18 122/68 94 L Intake and Output 06/21/22 06/22/22 06/22/22 22:59 06:59 14:59 Intake Total 480 Balance 480 Intake: Oral 480 Other: Voiding Method Toilet Toilet # Voids 1 2 Weight 113.398 kg Results 06/22/22 07:39 06/22/22 07:39 Cardiac Enzymes 06/21/22 06/21/22 06/21/22 Range/Units 10:09 12:47 14:34 Lactate Dehydrogenase 624 H (313-618) U/L Troponin I 0.045 H* 0.031 (0.000-0.034) ng/mL CBC 06/22/22 Range/Units 07:39 WBC 10.9 H (3.8-10.6) k/uL RBC 4.36 (3.80-5.40) m/uL Hgb 12.2 (11.4-16.0) gm/dL Hct 38.9 (34.0-46.0) % Plt Count 221 (150-450) k/uL Current Medications Generic Name Dose Route Start Last Admin Trade Name Freq PRN Reason Stop Dose Admin Albuterol Sulfate 2 puff 06/21/22 12:00 06/21/22 20:41 Albuterol Hfa Inhaler INHALATION Not Given RT-QID [facility] Albuterol Sulfate 2 puff 06/21/22 11:08 Albuterol Hfa Inhaler INHALATION RT-Q2H PRN Shortness Of Breath Ascorbic Acid 500 mg 06/22/22 09:00 Ascorbic Acid 500 Mg Tab PO DAILY [facility] Aspirin 325 mg 06/22/22 09:00 Aspirin 325 Mg Tab PO DAILY [facility] Azithromycin 500 mg 06/22/22 09:00 Azithromycin 500 Mg Tab PO 06/23/22 09:01 DAILY [facility] Protocol Cholecalciferol 25 mcg 06/22/22 09:00 Cholecalciferol 25 Mcg (1000 Iu) Tablet PO DAILY [facility] Enoxaparin Sodium 40 mg 06/22/22 09:00 Enoxaparin 40 Mg/0.4 Ml Syringe SQ DAILY CLAUDIA Famotidine 20 mg 06/21/22 14:13 Famotidine 20 Mg Tab PO DAILY PRN acid reflux Ceftriaxone Sodium 2 gm/ 50 mls @ 100 mls/hr 06/22/22 09:00 Sodium Chloride IVPB 06/25/22 09:29 Q24HR [facility] Protocol Levothyroxine Sodium 137 mcg 06/22/22 06:30 06/22/22 06:02 Levothyroxine 137 Mcg Tab PO 137 mcg DAILY@0630 CLAUDIA Administration Miscellaneous Information 1 each 06/21/22 08:54 Pneumonia Protocol Utilized 1 Each Misc PO ONCE PRN Per Protocol Nitroglycerin 0.4 mg 06/21/22 08:54 Nitroglycerin Sl Tabs 0.4 Mg Tab SUBLINGUAL Q5M PRN Chest Pain Pyridostigmine [place] 60 mg 06/21/22 18:00 06/21/22 21:19 Pyridostigmine 60 Mg Tab PO 60 mg QID [facility] Administration Tiotropium [place] 2 puff 06/21/22 11:30 06/21/22 11:15 Tiotropium 2.5 Mcg Inhaler INHALATION 2 puff RT-DAILY [facility] Administration Zinc Sulfate 220 mg 06/22/22 09:00 Zinc Sulfate 220 Mg Cap PO DAILY [facility] Intake and Output 06/21/22 06/22/22 06/22/22 22:59 06:59 14:59 Intake Total 480 Balance 480 Intake: Oral 480 Other: Voiding Method Toilet Toilet # Voids 1 2 Weight 113.398 kg 06/22/22 07:39 06/21/22 07:22
--- NOTE | 2022-06-22 17:14 | P.CNPUL ---
History of Present Illness Consult date: 06/22/22 Requesting physician: Teto Hare Chief complaint: Cough, congestion, rib pain History of present illness: This is 66-year-old female patient with a known history of obesity, hypertension, hyperlipidemia, hypothyroidism, cervical cancer must COPD, former smoker. She presented here to the emergency room yesterday with complaints of shortness of breath cough and congestion. She states she tested positive for COVID-19. She felt as though she was recovering from that. She developed some right-sided rib pain and was concerned and came for him for the same. Chest x- ray reveals mild underlying emphysematous changes of mild cardiomegaly with persistent masslike consolidation suspected focal pneumonia involving the left midlung. Sputum culture pending. Blood cultures pending. White count 10.9. Hemoglobin 12.2. Sodium 142. Potassium 4.6. BUN 19. Creatinine 0.84. Pro- calcitonin 0.35. Amos virus detected. She's been initiated on Lovenox, vitamin supplements. Initiated on albuterol, Spiriva. Antibiotics in the form of ceftriaxone and azithromycin. She is seen today in consultation on the [facility] medical floor. She is currently sitting up in a chair at the bedside. Awake and alert in no acute distress. Maintaining O2 saturations in the 90s on room air. Afebrile. Hemodynamically stable. Review of Systems REVIEW OF SYSTEMS: CONSTITUTIONAL: Denies any recent significant weight loss or weight gain. EYES: Denies change in vision. EARS, NOSE, MOUTH, THROAT: Denies headaches, denies sore throat. CARDIOVASCULAR: Denies chest pain, palpitations or syncopal episodes. RESPIRATORY: Positive for shortness of breath, cough, congestion or hemoptysis. GASTROINTESTINAL: Denies change in appetite, denies abdominal pain GENITOURINARY: Denies hematuria, denies infections. MUSKULOSKELETAL: Denies pain, denies swelling. INTEGUMENTARY: Denies rash, denies eczema. NEUROLOGICAL: Denies recent memory loss, no recent seizure activity. PSYCHIATRIC: Denies anxiety, denies depression. HEMATOLOGIC/LYMPHATIC: Denies anemia, denies enlarged lymph nodes. Past Medical History Past Medical History: Cancer, GERD/Reflux, Hyperlipidemia, Hypertension, Pneumonia, Thyroid Disorder Additional Past Medical History / Comment(s): Obesity, hypertension, hyperlipidemia, shingles approximately 9 years ago, acid reflux, cervical cancer, Myasthenia Gravis History of Any Multi-Drug Resistant Organisms: None Reported Past Surgical History: Appendectomy, Cholecystectomy, Hysterectomy, Joint Replacement, Orthopedic Surgery, Tonsillectomy, Tubal Ligation Additional Past Surgical History / Comment(s): vicenta carpal tunnel , rt breast bx- neg, lt rotaotr cuff Past Anesthesia/Blood Transfusion Reactions: No Reported Reaction Additional Past Anesthesia/Blood Transfusion Reaction / Comment(s): never recieved blood Past Psychological History: No Psychological Hx Reported Past Alcohol Use History: None Reported Past Drug Use History: None Reported - Past Family History Mother Family Medical History: AFIB, COPD, Hyperlipidemia, Hypertension, Osteoarthritis (OA), Thyroid Disorder Additional Family Medical History / Comment(s): pacemaker Father Family Medical History: Cancer, Hypertension, Rheumatoid Arthritis (RA) Additional Family Medical History / Comment(s): 4 sisters 1 with congenital Kidney disease, hypertension, 1 brother healthy, 0 daughters and 2 sons healthy Medications and Allergies Home Medications Medication Instructions Recorded Confirmed Type Atorvastatin [Lipitor] 20 mg PO Q5D 01/27/16 06/21/22 History Levothyroxine Sodium [Synthroid] 137 mcg PO DAILY 12/07/16 06/21/22 History Albuterol Sulfate [Ventolin HFA] 2 puff INHALATION RT-QID PRN 06/21/22 06/21/22 History Aspirin 325 mg PO DAILY 06/21/22 06/21/22 History Azithromycin [Zithromax Z Pack] See Taper PO DIRECTED 06/21/22 06/21/22 History Cyanocobalamin (Vitamin B-12) 1,000 mcg PO DAILY 06/21/22 06/21/22 History [Vitamin B-12] Cyclobenzaprine [Flexeril] 10 mg PO DAILY PRN 06/21/22 06/21/22 History Ergocalciferol [Vitamin D2 (1250 1,250 mcg PO DAILY 06/21/22 06/21/22 History Mcg = 55607 Iu)] Famotidine [Pepcid] 20 mg PO DAILY PRN 06/21/22 06/21/22 History Loratadine [Claritin] 10 mg PO DAILY 06/21/22 06/21/22 History Losartan Potassium 100 mg PO DAILY 06/21/22 06/21/22 History Nebivolol HCl [Bystolic] 10 mg PO HS 06/21/22 06/21/22 History Pyridostigmine [Mestinon] 60 mg PO QID 06/21/22 06/21/22 History methylPREDNISolone [Medrol Dose See Taper PO DIRECTED 06/21/22 06/21/22 History Pack] predniSONE 10 mg PO DAILY 06/21/22 06/21/22 History Allergies Allergy/AdvReac Type Severity Reaction Status Date / Time codeine Allergy Rash/Hives Verified 06/21/22 11:10 Penicillins Allergy Rash/Hives Verified 06/21/22 11:10 strawberry Allergy Verified 06/21/22 11:10 tomato Allergy Dyspnea Verified 06/21/22 11:10 chocolate flavor AdvReac Unknown Verified 06/21/22 11:10 Physical Exam Vitals: Vital Signs Temp Pulse Resp BP Pulse Ox 06/22/22 12:00 98.3 F 76 16 122/78 92 L 06/22/22 09:02 95 06/22/22 08:00 85 16 131/76 93 L 06/22/22 04:00 98.5 F 86 20 136/84 95 06/22/22 02:00 76 19 06/22/22 00:00 76 19 126/75 95 06/21/22 20:00 98.3 F 77 18 133/70 95 Intake and Output 06/22/22 06/22/22 06/22/22 06:59 14:59 22:59 Intake Total 480 180 Balance 480 180 Intake: Oral 480 180 Other: Voiding Method Toilet Toilet # Voids 2 GENERAL EXAM: Alert, pleasant 66-year-old female him on room air, up in a chair, comfortable in no apparent distress. HEAD: Normocephalic. EYES: Normal reaction of pupils, equal size. NOSE: Clear with pink turbinates. THROAT: No erythema or exudates. NECK: No masses, no JVD. CHEST: No chest wall deformity. LUNGS: Equal air entry with no crackles, wheeze, a few rhonchi in the left lung. CVS: S1 and S2 normal with no audible murmur, regular rhythm. ABDOMEN: No hepatosplenomegaly, normal bowel sounds, no guarding or rigidity. SPINE: No scoliosis or deformity SKIN: No rashes CENTRAL NERVOUS SYSTEM: No focal deficits, tone is normal in all 4 extremities. EXTREMITIES: There is no peripheral edema. No clubbing, no cyanosis. Peripheral pulses are intact. Results - Laboratory Findings CBC and BMP: 06/22/22 07:39 06/22/22 07:39 PT/INR, D-dimer PT 9.9 sec (9.0-12.0) 06/21/22 07:22 INR 0.9 (<1.2) 06/21/22 07:22 Abnormal lab findings: Abnormal Labs 06/21/22 06/21/22 06/21/22 07:22 07:22 07:22 WBC 12.1 H Neutrophils # 10.1 H Chloride 108 H BUN 24 H Glucose 111 H Alkaline Phosphatase 127 H Lactate Dehydrogenase Troponin I 0.053 H* C-Reactive Protein Cholesterol LDL Cholesterol, Calc HDL Cholesterol Procalcitonin Coronavirus (PCR) 06/21/22 06/21/22 06/21/22 09:42 10:09 14:34 WBC Neutrophils # Chloride BUN Glucose Alkaline Phosphatase Lactate Dehydrogenase 624 H Troponin I 0.045 H* C-Reactive Protein 8.3 H Cholesterol LDL Cholesterol, Calc HDL Cholesterol Procalcitonin Coronavirus (PCR) Detected A 06/21/22 06/22/22 06/22/22 14:34 07:39 07:39 WBC 10.9 H Neutrophils # 7.8 H Chloride 111 H BUN 19 H Glucose Alkaline Phosphatase Lactate Dehydrogenase Troponin I C-Reactive Protein Cholesterol 230.00 H LDL Cholesterol, Calc 141.3 H HDL Cholesterol 63.30 H Procalcitonin 0.35 H Coronavirus (PCR) - Diagnostic Findings Chest x-ray: image reviewed Assessment and Plan Assessment: Acute COVID-19 infection with possible bacterial pneumonia. Pro-calcitonin 0.35. Currently on ceftriaxone and azithromycin. History of chronic tobacco dependence History of COPD Hypertension Hyperlipidemia Hypothyroidism Obesity BMI of 40 mg/m Plan: The patient was seen and evaluated Chest x-ray, labs and medications reviewed Continue ceftriaxone and azithromycin Continue bronchodilators Lovenox for DVT prophylaxis Stable and on room air We'll continue to follow and make further recommendations based on her clinical status I have personally seen and examined the patient, performed the documentation and the assessment and plan as written. Number of minutes spent on the visit: 20.
--- NOTE | 2022-06-23 06:23 | P.PN ---
Subjective Progress Note Date: 06/22/22 Patient is a 66-year-old female with a known history of hypertension, hyperlipidemia, GERD, hypothyroidism and morbid obesity BMI 40.4 presents to ER with complaints of cold-like symptoms and sharp chest pains. Patient states that she has been having symptoms for the past couple of weeks and was tested positive for COVID-19. Patient was seen by his primary care physician yesterday and was given antibiotics and steroids as an outpatient but has not started yet. Last night patient became very short of breath and having sharp pains in the ribs which made her to come to ER. Patient does have history of smoking quit 9 years ago. Denies any pleuritic chest pain. No leg swelling. No prior history of DVTs. Patient states that she started having symptoms couple days following her booster dose. Chest x-ray showed mild underlying emphysematous change and mild cardiomegaly with new masslike consolidation suspected focal pneumonia involving the inferior left upper lobe. EKG showed sinus rhythm Laboratory pressure WBC 12.1 hemoglobin 11.8 and platelets 248 Sodium 138 potassium 4.0 chloride 100 bicarb is 27 BUN 24 and creatinine 0.99 blood sugar is 111 Troponin 0.053, 0.045 and 0.031 proBNP 679 Coronavirus PCR detected. Patient is not hypoxic or tachycardic on admission 06/22/2022 Patient was seen and evaluated in follow-up today currently on room air and denies worsening shortness of breath. Patient is continued on IV ceftriaxone and zithromax with pulmonary and cardiology following. 2D echo ordered and pending. Patient denies chest pain and is afebrile. Will continue to monitor. Encouraged oral intake and increased activity as tolerated. Review of systems: Constitutional: No reports of fatigue, fever, or chills Cardiovascular: No reports of chest pain or palpitations Respiratory: No reports of shortness of breath , reports cough GI: No reports of nausea, vomiting, or diarrhea : No reports of dysuria or retention Neurovascular: No reports of weakness or numbness All medications have been reviewed Active Medications Albuterol Sulfate (Albuterol Hfa Inhaler) 2 puff INHALATION RT-QID [facility] Last Admin: 06/22/22 12:47 Dose: 2 puff Albuterol Sulfate (Albuterol Hfa Inhaler) 2 puff INHALATION RT-Q2H PRN PRN Reason: Shortness Of Breath Ascorbic Acid (Ascorbic Acid 500 Mg Tab) 500 mg PO DAILY [facility] Last Admin: 06/22/22 09:48 Dose: 500 mg Aspirin (Aspirin 325 Mg Tab) 325 mg PO DAILY [facility] Last Admin: 06/22/22 09:48 Dose: 325 mg Azithromycin (Azithromycin 500 Mg Tab) 500 mg PO DAILY [facility]; Protocol Stop: 06/23/22 09:01 Last Admin: 06/22/22 09:48 Dose: 500 mg Cholecalciferol (Cholecalciferol 25 Mcg (1000 Iu) Tablet) 25 mcg PO DAILY [facility] Last Admin: 06/22/22 09:48 Dose: 25 mcg Enoxaparin Sodium (Enoxaparin 40 Mg/0.4 Ml Syringe) 40 mg SQ DAILY [facility] Last Admin: 06/22/22 09:48 Dose: 40 mg Famotidine (Famotidine 20 Mg Tab) 20 mg PO DAILY PRN PRN Reason: acid reflux Ceftriaxone Sodium 2 gm/ (Sodium Chloride) 50 mls @ 100 mls/hr IVPB Q24HR [facility]; Protocol Stop: 06/25/22 09:29 Last Admin: 06/22/22 12:15 Dose: 100 mls/hr Levothyroxine Sodium (Levothyroxine 137 Mcg Tab) 137 mcg PO DAILY@0630 [facility] Last Admin: 06/22/22 06:02 Dose: 137 mcg Miscellaneous Information (Pneumonia Protocol Utilized 1 Each Misc) 1 each PO ONCE PRN PRN Reason: Per Protocol Nitroglycerin (Nitroglycerin Sl Tabs 0.4 Mg Tab) 0.4 mg SUBLINGUAL Q5M PRN PRN Reason: Chest Pain Pyridostigmine [place] (Pyridostigmine 60 Mg Tab) 60 mg PO QID [facility] Last Admin: 06/22/22 12:15 Dose: 60 mg Tiotropium [place] (Tiotropium 2.5 Mcg Inhaler) 2 puff INHALATION RT-DAILY [facility] Last Admin: 06/22/22 09:01 Dose: 2 puff Zinc Sulfate (Zinc Sulfate 220 Mg Cap) 220 mg PO DAILY [facility] Last Admin: 06/22/22 09:48 Dose: 220 mg Physical exam: Patient is lying in the bed comfortably, no acute distress, awake alert and oriented.. HEENT: Normocephalic. Neck is supple. Pupils reactive. Nostrils clear. Oral cavity is moist. Neck reveals no JVD, carotid bruits, or thyromegaly. CHEST EXAMINATION: Trachea is central. Symmetrical expansion. Lung arauz clear to auscultation and percussion. CARDIAC: Normal S1, S2 with no gallops. No murmurs ABDOMEN: Soft. Bowel sounds present. Nontender. No organomegaly. No abdominal bruits. Extremities: reveal no edema. No clubbing or cyanosis Neurologically awake, alert, oriented x3 with well-coordinated movements. No focal deficits noted Skin: No rash or skin lesions. Psychiatric: Cooperative. Non-suicidal, Musculoskeletal: No joint swelling or deformity. Normal range of motion. Assessment: Left upper lobe pneumonia with masslike consolidation. Underlying mass cannot be excluded. Acute COVID-19 infection with elevated inflammatory markers. Elevated troponin level Hypertension Hyperlipidemia Hypothyroidism Morbid obesity BMI 40.4 GERD History of cervical cancer Myasthenia gravis DVT prophylaxis with Lovenox subcu Plan: Patient will be continued antibiotics in the form of ceftriaxone azithromycin. Pulmonary following Continue with inhalers, GI and DVT prophylaxis. Cardiology following and awaiting 2D echocardiogram and likely musculoskeletal. procalcitonin was elevated, continue abx Encouraged increased activity as tolerated along with oral intake The impression and plan of care has been dictated by Arlyn Rm, Nurse Practitioner as directed. Dr. Priscilla MD I have performed a history and examination and MDM of this patient, discussed the same with the dictator, and agree with the dictator's assessment and plan as written ,documented as a scribe. Based on total visit time, I have performed more than 50% of the visit. Objective - Vital Signs Vital signs: Vital Signs Temp 98.5 F 06/22/22 04:00 Pulse 85 06/22/22 08:00 Resp 16 06/22/22 08:00 BP 131/76 06/22/22 08:00 Pulse Ox 95 06/22/22 09:02 FiO2 Intake & Output 06/21/22 06/22/22 06/22/22 18:59 06:59 18:59 Intake Total 480 180 Balance 480 180 Weight 113.398 kg Intake: Oral 480 180 Other: Voiding Method Toilet Toilet # Voids 1 2 - Labs CBC & Chem 7: 06/22/22 07:39 06/22/22 07:39 Labs: Abnormal Lab Results - Last 24 Hours (Table) 06/21/22 06/21/2222 Range/Units 10:09 14:34 14:34 WBC (3.8-10.6) k/uL Neutrophils # (1.3-7.7) k/uL Chloride (98-107) mmol/L BUN (7-17) mg/dL Lactate Dehydrogenase 624 H (313-618) U/L Troponin I 0.045 H* (0.000-0.034) ng/mL C-Reactive Protein 8.3 H (<1.0) mg/dL Procalcitonin 0.35 H (0.02-0.09) ng/mL 06/22/22 06/22/22 Range/Units 07:39 07:39 WBC 10.9 H (3.8-10.6) k/uL Neutrophils # 7.8 H (1.3-7.7) k/uL Chloride 111 H (98-107) mmol/L BUN 19 H (7-17) mg/dL Lactate Dehydrogenase (313-618) U/L Troponin I (0.000-0.034) ng/mL C-Reactive Protein (<1.0) mg/dL Procalcitonin (0.02-0.09) ng/mL
[2022-06-23] MEDS: LEVOTHYROXINE 137 MCG TAB PO SCH (06:47)
[2022-06-23] MEDS: ALBUTEROL HFA INHALER INHALATION SCH ×2 (07:31→11:40)
[2022-06-23] MEDS: TIOTROPIUM 2.5 MCG INHALER INHALATION SCH (07:32)
[2022-06-23] MEDS: ENOXAPARIN 40 MG/0.4 ML SYRINGE SQ SCH (09:38)
[2022-06-23] MEDS: ASCORBIC ACID 500 MG TAB PO SCH (09:38)
[2022-06-23] MEDS: ZINC SULFATE 220 MG CAP PO SCH (09:38)
[2022-06-23] MEDS: ASPIRIN 325 MG TAB PO SCH (09:38)
[2022-06-23] MEDS: AZITHROMYCIN 500 MG TAB PO SCH (09:38)
[2022-06-23] MEDS: CHOLECALCIFEROL 25 MCG (1000 IU) TABLET PO SCH (09:38)
[2022-06-23] MEDS: PYRIDOSTIGMINE 60 MG TAB PO SCH ×2 (09:39→13:05)
[2022-06-23 09:43] VITALS: RESP 16; TEMP 98.7
--- NOTE | 2022-06-23 13:06 | P.PN ---
Subjective Progress Note Date: 06/23/22 Principal diagnosis: Shortness of breath. This is 66-year-old female patient with a known history of obesity, hypertension, hyperlipidemia, hypothyroidism, cervical cancer must COPD, former smoker. She presented here to the emergency room yesterday with complaints of shortness of breath cough and congestion. She states she tested positive for COVID-19. She felt as though she was recovering from that. She developed some right-sided rib pain and was concerned and came for him for the same. Chest x- ray reveals mild underlying emphysematous changes of mild cardiomegaly with persistent masslike consolidation suspected focal pneumonia involving the left midlung. Sputum culture pending. Blood cultures pending. White count 10.9. Hemoglobin 12.2. Sodium 142. Potassium 4.6. BUN 19. Creatinine 0.84. Pro- calcitonin 0.35. Amos virus detected. She's been initiated on Lovenox, vitamin supplements. Initiated on albuterol, Spiriva. Antibiotics in the form of ceftriaxone and azithromycin. She is seen today in consultation on the regular medical floor. She is currently sitting up in a chair at the bedside. Awake and alert in no acute distress. Maintaining O2 saturations in the 90s on room air. Afebrile. Hemodynamically stable. Progress note dated 06/23/2028. 66-year-old female again seen in room 376. She's on room air. No IV fluids. The patient is feeling better today. The patient was like to be discharged home if possible. I told her it was up to the primary care provider. No new labs today. Labs from June 22 are reviewed. Objective - Vital Signs Vital signs: Vital Signs Temp 98.7 F 06/23/22 08:00 Pulse 94 06/23/22 08:00 Resp 16 06/23/22 08:00 BP 118/63 06/23/22 08:00 Pulse Ox 99 06/23/22 08:00 FiO2 Intake & Output 06/22/22 06/23/22 06/23/22 18:59 06:59 18:59 Intake Total 540 180 Balance 540 180 Intake: Oral 540 180 Other: Voiding Method Toilet Toilet Toilet # Voids 0 - Exam No acute distress, oriented 3. No respiratory distress. Currently on room air. HEENT examination is grossly unremarkable. Neck supple. Full range of motion. No adenopathy thyromegaly or neck vein distention. Cardiovascular examination reveals regular rhythm rate. S1-S2 normal. No S3 or S4. No discernible murmur noted. Heart rate 94 bpm. Lungs reveal scattered bilateral rhonchi. No wheezes. No crackles. Room air saturation is 99%. Abdomen soft bowel sounds are heard. No masses or tenderness. Extremities are intact. No cyanosis clubbing or edema. Skin is without rash or lesion. Neurologic examination is brief but nonfocal. - Labs CBC & Chem 7: 06/22/22 07:39 06/22/22 07:39 Labs: Microbiology - Last 24 Hours (Table) 06/21/22 09:41 Blood Culture - Preliminary Blood No Growth after 48 hours 06/21/22 09:41 Blood Culture - Preliminary Blood No Growth after 48 hours 06/21/22 09:01 Gram Stain - Preliminary Sputum Sputum Culture - Preliminary Assessment and Plan Assessment: Acute COVID-19 infection with possible bacterial pneumonia. Pro-calcitonin 0.35. Currently on ceftriaxone and azithromycin. History of chronic tobacco dependence. History of COPD. Hypertension. Hyperlipidemia. Hypothyroidism. Obesity BMI of 40 mg/m. Plan: Plan dated 06/23/2022. The patient is currently on room air. No IV fluids. She appears much better today. The first thing out of her mouth is that she wants to be discharged home. I told her it was up to the primary service. Labs, x-rays, and medications are all reviewed. We will continue to follow if she is not discharged. Prognosis is guarded. She appears very stable. Time with Patient: Less than 30
[2022-06-23 13:10] VITALS: BP 135/74; PULSE 88
--- NOTE | 2022-06-23 13:36 | P.PN ---
Subjective This is a pleasant 66-year-old female past medical history significant for hypertension, dyslipidemia, hypothyroidism, GERD, former tobacco use. She does not follow with a last sawyer. We've been asked to see in consultation for elevated troponin. Patient presents emergency department with complaints of fever, chills, productive cough. She is Covid-19 positive. She denies any chest pain at bedside. She states that last night she does get sharp chest pains majority in her ribs when she turns over in bed. Her chest pains are only when she is lying in bed and turns over. Mostly at night. She denies any exertional chest pain or shortness of breath. She denies any lightheadedness, dizziness, syncope or near syncope. She denies any history of CAD, DC, stroke, diabetes. Denies any family history of coronary artery disease. Denies any current tobacco use. Denies any alcohol or illicit drug use. 06/23/2022 Patient seen at bedside, no acute distress. Vital signs are stable. Echo is pending. PHYSICAL EXAMINATION Head is reviewed CONSTITUTIONAL: No apparent distress. HEENT: Head is normocephalic. No JVD. CHEST EXAMINATION: Lungs are clear to auscultation. HEART EXAMINATION: Regular rate and rhythm. S1, S2 heard. ABDOMEN: Soft, nontender. EXTREMITIES:no lower extremity edema NEUROLOGIC EXAMINATION: Patient is awake, alert and oriented x3. ASSESSMENT Covid-19 Pneumonia Symptoms of productive cough, fever, chills Chest pain, noncardiac, likely musculoskeletal History of hypertension History of hypothyroidism Dyslipidemia Former tobacco use PLAN Obtain echocardiogram to assess cardiac structure If no acute findings on Echo no further workup from a cardiology perspective Continue home cardiac medications Rest of management per primary Addendum: Preliminary Echo report revealed normal LV Systolic function Nurse practitioner note has been reviewed by physician. Signing provider agrees with the documented findings, assessment, and plan of care. Objective - Vital Signs Vital signs: Vital Signs Temp 98.7 F 06/23/22 08:00 Pulse 94 06/23/22 08:00 Resp 16 06/23/22 08:00 BP 118/63 06/23/22 08:00 Pulse Ox 99 06/23/22 08:00 FiO2 Intake & Output 06/22/22 06/23/22 06/23/22 18:59 06:59 18:59 Intake Total 540 180 Balance 540 180 Intake: Oral 540 180 Other: Voiding Method Toilet Toilet Toilet # Voids 0 - Labs CBC & Chem 7: 06/22/22 07:39 06/22/22 07:39 Labs: Microbiology - Last 24 Hours (Table) 06/21/22 09:01 Gram Stain - Preliminary Sputum Sputum Culture - Preliminary 06/21/22 09:41 Blood Culture - Preliminary Blood No Growth after 24 hours 06/21/22 09:41 Blood Culture - Preliminary Blood No Growth after 24 hours
[2022-06-23] MEDS ORDERED: ATORVASTATIN 20 MG TAB PO SCH (21:00)
--- NOTE | 2022-06-26 15:52 | P.DS ---
Providers Date of admission: 06/21/22 09:08 Expected date of discharge: 06/23/22 Attending physician: Teto Hare MD Consults: 06/21/22 08:54 Consult Physician Routine Consulting Provider: Ashkan Feliciano Consult Reason/Comments: chest pain Do you want consulting provider notified?: Yes 06/21/22 08:55 Consult Physician Routine Consulting Provider: Satnam Bond Consult Reason/Comments: Pneumonia, COPD Do you want consulting provider notified?: Yes Primary care physician: Braden Gandhi Hospital Course: Final diagnosis Left upper lobe pneumonia with masslike consolidation. Underlying mass cannot be excluded. Acute COVID-19 infection with elevated inflammatory markers. Elevated troponin level Hypertension Hyperlipidemia Hypothyroidism Morbid obesity BMI 40.4 GERD History of cervical cancer Myasthenia gravis DVT prophylaxis Discharge disposition Patient is being discharged in a stable condition with guarded prognosis to home. Patient will follow-up with Dr. Gandhi in the outpatient setting upon discharge. Patient is to follow up with pulmonary as scheduled. Patient to continue on oral ceftin for 4 days to complete the course. Total time taken is greater than 35 minutes. Hospital course This is a 66-year-old female who was recently admitted with cough and shortness of breath with pneumonia and being followed closely by pulmonary. Patient to follow up with pulmonary outpatient. Patient was also covid 19 positive and will continue vitamin and zinc supplements. Patient reports to feeling well and would like to go home. Cleared by pulmonary for discharge. Currently no reports of chest pain, shortness of breath, or palpitations. Patient is afebrile. No reports of nausea or vomiting and patient is tolerating diet. Patient will be discharged home today. Physical exam: Gen: This is a 66 year old female who is awake, well developed,well nourished, morbidly obese HEENT: Head is atraumatic, normocephalic. Pupils equal, round. Sclerae is anicteric. NECK: Supple. No JVD. No lymphadenopathy. No thyromegaly. LUNGS: diminished breath sounds bilaterally otherwise clear to auscultation. No wheezes, with some course rhonchi. No intercostal retractions. HEART: Regular rate and rhythm. No murmur. ABDOMEN: Soft. obese. Bowel sounds are present. No masses. No tenderness. EXTREMITIES: No pedal edema. No calf tenderness. NEUROLOGICAL: Patient is awake, alert and oriented x3. Cranial nerves 2 through 12 are grossly intact. Please refer to medication reconciliation sheet for a list of medications. The impression and plan of care has been dictated by Arlyn Rm, Nurse Practitioner as directed. Dr. Priscilla MD I have performed a history and examination and MDM of this patient, discussed the same with the dictator, and agree with the dictator's assessment and plan as written ,documented as a scribe. Based on total visit time, I have performed more than 50% of the visit. Patient Condition at Discharge: Fair Plan - Discharge Summary Discharge Rx Participant: Yes New Discharge Prescriptions: New cefUROXime axetiL [Ceftin] 500 mg PO BID 4 Days #8 tab Tiotropium 2.5 Mcg/Puff [Spiriva Respimat 2.5 Mcg] 2 puff INHALATION RT-DAILY 30 Days #1 each Zinc Sulfate [Orazinc] 220 mg PO DAILY 14 Days #14 cap Albuterol Inhaler [Ventolin Hfa Inhaler] 2 puff INHALATION RT-Q2H PRN each PRN Reason: Shortness Of Breath Ascorbic Acid [Vitamin C] 500 mg PO DAILY #30 tab Cholecalciferol [Vitamin D3 (25 Mcg = 1000 Iu)] 25 mcg PO DAILY #30 tab Continue Atorvastatin [Lipitor] 20 mg PO Q5D Levothyroxine Sodium [Synthroid] 137 mcg PO DAILY Cyanocobalamin (Vitamin B-12) [Vitamin B-12] 1,000 mcg PO DAILY Ergocalciferol [Vitamin D2 (1250 Mcg = 12270 Iu)] 1,250 mcg PO DAILY Pyridostigmine [Mestinon] 60 mg PO QID Losartan Potassium 100 mg PO DAILY Cyclobenzaprine [Flexeril] 10 mg PO DAILY PRN PRN Reason: Muscle Pain Albuterol Sulfate [Ventolin HFA] 2 puff INHALATION RT-QID PRN PRN Reason: Shortness Of Breath Aspirin 325 mg PO DAILY Famotidine [Pepcid] 20 mg PO DAILY PRN PRN Reason: acid reflux Loratadine [Claritin] 10 mg PO DAILY Nebivolol HCl [Bystolic] 10 mg PO HS predniSONE 10 mg PO DAILY Discontinued Azithromycin [Zithromax Z Pack] See Taper PO DIRECTED methylPREDNISolone [Medrol Dose Pack] See Taper PO DIRECTED Discharge Medication List Atorvastatin [Lipitor] 20 mg PO Q5D 01/27/16 [History] Levothyroxine Sodium [Synthroid] 137 mcg PO DAILY 12/07/16 [History] Albuterol Sulfate [Ventolin HFA] 2 puff INHALATION RT-QID PRN 06/21/22 [History] Aspirin 325 mg PO DAILY 06/21/22 [History] Cyanocobalamin (Vitamin B-12) [Vitamin B-12] 1,000 mcg PO DAILY 06/21/22 [History] Cyclobenzaprine [Flexeril] 10 mg PO DAILY PRN 06/21/22 [History] Ergocalciferol [Vitamin D2 (1250 Mcg = 39488 Iu)] 1,250 mcg PO DAILY 06/21/22 [History] Famotidine [Pepcid] 20 mg PO DAILY PRN 06/21/22 [History] Loratadine [Claritin] 10 mg PO DAILY 06/21/22 [History] Losartan Potassium 100 mg PO DAILY 06/21/22 [History] Nebivolol HCl [Bystolic] 10 mg PO HS 06/21/22 [History] Pyridostigmine [Mestinon] 60 mg PO QID 06/21/22 [History] predniSONE 10 mg PO DAILY 06/21/22 [History] Albuterol Inhaler [Ventolin Hfa Inhaler] 2 puff INHALATION RT-Q2H PRN each 06/23/22 [Rx] Ascorbic Acid [Vitamin C] 500 mg PO DAILY #30 tab 06/23/22 [Rx] Cholecalciferol [Vitamin D3 (25 Mcg = 1000 Iu)] 25 mcg PO DAILY #30 tab 06/23/22 [Rx] Tiotropium 2.5 Mcg/Puff [Spiriva Respimat 2.5 Mcg] 2 puff INHALATION RT-DAILY 30 Days #1 each 06/23/22 [Rx] Zinc Sulfate [Orazinc] 220 mg PO DAILY 14 Days #14 cap 06/23/22 [Rx] cefUROXime axetiL [Ceftin] 500 mg PO BID 4 Days #8 tab 06/23/22 [Rx] Follow up Appointment(s)/Referral(s): Braden Gandhi DO [Primary Care Provider] - 1-2 days (PLEASE CALL AND SCHEDULE APPOINTMENT.) Adalid Mcnulty MD [STAFF PHYSICIAN] - 07/29/22 2:30 pm Patient Instructions/Handouts: Cefuroxime (By mouth), Zinc Sulfate (By mouth), Ascorbic Acid (By mouth), Tiotropium (By breathing), Vitamin D (By mouth), COPD (Chronic Obstructive Pulmonary Disease) (DC), COVID-19 (Coronavirus Disease 2019) (DC) Activity/Diet/Wound Care/Special Instructions: Activity Limited on discharge until follow-up Follow-up with cardiology outpatient Follow-up with pulmonary outpatient Continue taking medications as prescribed Finish short course of antibiotics Continue inhalers Discharge Disposition: HOME SELF-CARE
== END 2022-06-23 14:02 | disposition home or self-care (01) | DRG 177 ==
LOC: EC 06:55 → 3SCARD 09:08
PROVIDERS: ADMIT Internal Medicine; ATTEND Internal Medicine
PROC: 8E0ZXY6 Isolation (ICD-10-PCS; principal; 2022-06-21)
DX: U07.1 COVID-19 (principal); J12.82 Pneumonia due to coronavirus disease 2019; J15.9 Unspecified bacterial pneumonia; J44.0 Chronic obstructive pulmonary disease with (acute) lower respiratory infection; Z68.41 Body mass index [BMI] 40.0-44.9, adult; E03.9 Hypothyroidism, unspecified; E66.01 Morbid (severe) obesity due to excess calories; E78.5 Hyperlipidemia, unspecified; G70.00 Myasthenia gravis without (acute) exacerbation; I10 Essential (primary) hypertension; K21.9 Gastro-esophageal reflux disease without esophagitis; R77.8 Other specified abnormalities of plasma proteins; Z79.01 Long term (current) use of anticoagulants; Z78.9 Other specified health status; Z79.82 Long term (current) use of aspirin; Z79.890 Hormone replacement therapy; Z79.899 Other long term (current) drug therapy; Z82.49 Family history of ischemic heart disease and other diseases of the circulatory system; Z82.5 Family history of asthma and other chronic lower respiratory diseases; Z85.41 Personal history of malignant neoplasm of cervix uteri; Z87.891 Personal history of nicotine dependence; Z88.5 Allergy status to narcotic agent; Z88.0 Allergy status to penicillin; Z91.018 Allergy to other foods; Z86.19 Personal history of other infectious and parasitic diseases
CPT/HCPCS: 36415; 71045; 71046; 80048; 80053; 80061; 83615; 83735; 83880; 84145; 84484; 85025; 85610; 85730; 86140; 87040; 87070; 87205; 87635; 93005; 93308; 94640; 94760; 96361; 96365; 96375; 99285

== ENCOUNTER → 2022-07-29 | Outpatient (CLI) | payer MEDICARE, OTHER ==
--- NOTE | 2022-07-29 16:54 | CT ---
EXAMINATION TYPE: CT angio chest DATE OF EXAM: 07/29/2022 COMPARISON: 06/12/2018 HISTORY: SOB CT DLP: 906.3 mGycm Automated exposure control for dose reduction was used. CONTRAST: Performed with IV Contrast, patient injected with 80 mL of Isovue 370. There are 3-D post processed images. There is some mild atelectasis at the lung bases. Heart is enlarged. No pericardial effusion. There is no mediastinal adenopathy. Thoracic aorta is atheromatous. No thoracic aortic aneurysm or dissection. There is normal contrast opacification of the pulmonary arteries. No filling defect. The thoracic spi ne is intact. No compression fracture. Sternum is intact. IMPRESSION: Patchy atelectasis in the lower lung arauz and more in the lingula left upper lobe. No evidence of p ulmonary embolism.
--- NOTE | 2022-07-30 07:25 | US ---
EXAMINATION TYPE: US venous doppler duplex LE BI DATE OF EXAM: 07/29/2022 4:42 PM COMPARISON: None CLINICAL HISTORY: R22.42 Swelling of left lower limb,R22.41 Swelling of right. right foot swelling. On aspirin. HX dvt. SIDE PERFORMED: Bilateral TECHNIQUE: The lower extremity deep venous system is examined utilizing real time linear array sonog cheryl with graded compression, doppler sonography and color-flow sonography. VESSELS IMAGED: Common Femoral Vein Deep Femoral Vein Greater Saphenous Vein * Femoral Vein Popliteal Vein Small Saphenous Vein * Proximal Calf Veins (* superficial vessels) Right Leg: Negative for DVT, Grayscale, color doppler, spectral doppler imaging performed of the denise p veins of the lower extremities. There is normal flow, compressibility, vascular waveforms. Left Leg: Negative for DVT, Grayscale, color doppler, spectral doppler imaging performed of the deep veins of the lower extremities. There is normal flow, compressibility, vascular waveforms. IMPRESSION: No evidence for deep vein thrombosis of the bilateral lower extremities.
== END | disposition home or self-care (01) ==
LOC: RADCTMAIN 14:31
PROVIDERS: ATTEND Internal Medicine Critical Care Medicine
DX: J98.11 Atelectasis (principal); R22.42 Localized swelling, mass and lump, left lower limb; R22.41 Localized swelling, mass and lump, right lower limb; Z86.718 Personal history of other venous thrombosis and embolism
CPT/HCPCS: 82565; 84520; 93970; 71275; 36415; Q9967

== ENCOUNTER → 2024-12-25 | Outpatient (CLI) | payer MEDICARE, OTHER ==
--- NOTE | 2024-12-25 08:16 | MM ---
Reason for Exam: Screening (asymptomatic). Last mammogram was performed 4 year(s) and 3 month(s) ago. Patient History: Menarche at age 12. First Full-Term at age 17. Left ovary removed at age 45. Right ovary removed at age 45. Hysterectomy at age 45. Postmenopausal. Other cancer, age 42. Previous chemotherapy. Patient used Hormonal Contraceptives for 2 years. 04/21/2014, Benign Core Biopsy on the left side. Maternal aunt had breast cancer. Risk Values: Liana 5 year model risk: 1.5%. NCI Lifetime model risk: 4.3%. Prior Study Comparison: 01/03/2018 Bilateral Screening Mammogram, [facility]. 03/11/2019 Bilateral Screening Mammogram, [facility]. 09/14/2020 Bilateral Screening Mammogram, [facility]. Tissue Density: There are scattered areas of fibroglandular density. Findings: Analyzed By CAD. There are benign-appearing vascular calcifications redemonstrated scattered throughout the bilateral breast. Biopsy clip in the left breast is again seen. There are few small benign-appearing round calcifications bilaterally redemonstrated. There is 6 mm circumscribed mass in the middle depth upper outer aspect left breast which is stable or smaller from prior mammograms. There is no suspicious group of microcalcifications or new suspicious mass in either breast. Overall Assessment: Benign, BI-RAD 2 Management: Screening Mammogram of both breasts in 1 year. . Patient should continue monthly self-breast exams. A clinical breast exam by your physician is recommended on an annual basis. This exam should not preclude additional follow-up of suspicious palpable abnormalities. Note on Liana scores and lifetime risk: 1. A Liana score greater than 3% is considered moderate risk. If this is the case, consider specialist referral to assess eligibility for a risk reducing agent. 2. If overall lifetime risk for the development of breast cancer is 20% or higher, the patient may qualify for future screening with alternating mammogram and breast MRI. [facility], , 12/25/2024 8:13 AM. Electronically signed and approved by: Royce Gomez M.D.
--- NOTE | 2024-12-25 08:20 | BD ---
EXAMINATION TYPE: Axial Bone Density DATE OF EXAM: 12/25/2024 CLINICAL HISTORY: 69 years old Female. ICD-10 CODE: Z12.31 BR CA SCR Z78.0 MENOPAUSAL , Additional History: Height: 66 Weight: 279.7 FRAX RISK QUESTIONS: Alcohol (3 or more units per day): no Family History (Parent hip fracture): no Glucocorticoids (More than 3mos): prednisone daily past 3 years (Ex: prednisone, prednisolone, methylprednisolone, dexamethasone, and hydrocortisone). History of Fracture in Adulthood: no Secondary Osteoporosis: 1. Type 1 Diabetes: no 2. Hyperthyroidism: no 3. Menopause before 45: no 4. Malnutrition:no 5. Chronic liver disease: no Rheumatoid Arthritis: no Current Tobacco Use: no RISK FACTORS HISTORY OF: Hip Fracture (Right/Left): no Spine Fracture: no History of Wrist Fracture: no Surgery to Spine/Hip(right/left)/Wrist (right/left): no MEDICATIONS: Thyroid Medications: Levothyroxine How Long: past 15 years Osteoporosis Medications: no EXAM MEASUREMENTS: Bone mineral densitometry was performed using the [employer]. Bone mineral density as measured about the Lumbar spine is: ----- L1-L4(G/cm2): 1.233 T Score Values are as follows: ----- L1: 0.1 ----- L2: 0.4 ----- L3: 0.6 ----- L4: 0.4 ----- L1-L4: 0.4 Z Score Values are as follows: ----- L1: 0.6 ----- L2: 0.9 ----- L3: 1.1 ----- L4: 0.9 ----- L1-L4: 0.9 Bone mineral density has: decreased -2.1 % since study of: 01/03/2018 Bone mineral density about the R hip (g/cm2): 1.240 Bone mineral density about the L hip (g/cm2): 1.240 T Score values are as follows: -----R Neck: 1.3 -----L Neck: 0.6 -----R Total: 1.8 -----L Total: 1.8 Z Score values are as follows: -----R Neck: 2.2 -----L Neck: 1.6 -----R Total: 2.5 -----L Total: 2.5 Bone mineral density has: decreased -0.7 % since study of: 01/03/2018 FRAX%s: The graph provided illustrates a 8.4% chance for a major osteoporotic fx and a 0.3% chance fo r the hips probability for fx in 10 years time. IMPRESSION: Normal (Values between +1 and -1 indicate normal bone mass). Consider repeating this study in 5 year s or sooner if there is some new clinical indication. NOTE: T-SCORE=SD OF THE YOUNG ADULT MEAN. [facility], , 12/25/2024 8:17 AM
== END | disposition home or self-care (01) ==
LOC: RADMAMWWP 07:26
PROVIDERS: ATTEND Family Medicine
DX: Z12.31 Encounter for screening mammogram for malignant neoplasm of breast (principal); Z78.0 Asymptomatic menopausal state; R92.323 Mammographic fibroglandular density, bilateral breasts; R92.1 Mammographic calcification found on diagnostic imaging of breast; Z92.0 Personal history of contraception; Z80.3 Family history of malignant neoplasm of breast
CPT/HCPCS: 77063; 77067; 77080